=== PATIENT | female | born 1950 | race Two or more races ===

== ENCOUNTER → 2018-05-07 | Outpatient (CLI) | payer SELFPAY ==
[2018-05-07 09:12] LABS: ABSOLUTE BASOPHILS # (AUTO) 0.1 10^3/uL (0.0-0.2); ABSOLUTE EOSINOPHILS # (AUTO) 0.2 10^3/uL (0.0-0.6); ABSOLUTE LYMPHOCYTES (AUTO) 2.4 10^3/uL (0.5-4.7); ABSOLUTE MONOCYTES (AUTO) 0.6 10^3/uL (0.1-1.4); ABSOLUTE NEUT (AUTO) 4.6 10^3/uL (1.7-8.2); EOSINOPHILS % (AUTO) 2.2 % (0-6); HEMATOCRIT 35.2 % (36.0-47.0); HEMOGLOBIN 11.8 g/dL (12.0-15.5); LYMPHOCYTES % (AUTO) 31.1 % (13-45); MEAN CORPUSCULAR HGB CONC 33.4 g/dL (32.0-36.0); MEAN CORPUSCULAR VOLUME 84 fl (80-97); MONOCYTES % (AUTO) 7.2 % (3-13); PLATELET COUNT 274 10^3/uL (150-450); RED CELL DISTRIBUTION WIDTH 13.7 % (11.5-14.0); SEGMENTED NEUTROPHILS % (AUTO) 58.5 % (42-78); TOTAL CELLS COUNTED % (AUTO) 100 %; WHITE BLOOD COUNT 7.8 10^3/uL (4.0-10.5)
[2018-05-07 09:38] LABS: ALANINE AMINOTRANSFERASE 15 U/L (9-52); ALBUMIN 3.9 g/dL (3.5-5.0); ALKALINE PHOSPHATASE 159 U/L (38-126); ANION GAP 15 (5-19); ASPARTATE AMINO TRANSFERASE 13 U/L (14-36); BILIRUBIN,DIRECT 0.3 mg/dL (0.0-0.4); BILIRUBIN,TOTAL 0.4 mg/dL (0.2-1.3); BLOOD UREA NITROGEN 38 mg/dL (7-20); CALCIUM 9.9 mg/dL (8.4-10.2); CARBON DIOXIDE 28 mmol/L (22-30); CHLORIDE 95 mmol/L (98-107); CHOLESTEROL 183.66 mg/dL (0-200); POTASSIUM 5.3 mmol/L (3.6-5.0); TOTAL PROTEIN 7.3 g/dL (6.3-8.2); TRIGLYCERIDES 185 mg/dL (<150)
[2018-05-07 09:48] LABS: DIRECT LDL 108 mg/dL (<100)
[2018-05-07 10:26] LABS: GLUCOSE 428 mg/dL (75-110)
== END ==
LOC: OD 07:54
PROVIDERS: ATTEND Family Medicine
DX: D51.8 Other vitamin B12 deficiency anemias (principal); I10 Essential (primary) hypertension; E11.9 Type 2 diabetes mellitus without complications; E78.5 Hyperlipidemia, unspecified
CPT/HCPCS: 36415; 80053; 80061; 82607; 83036; 85025

== ENCOUNTER 2018-09-11 10:01 | Emergency (ER) | payer SELFPAY ==
[2018-09-11] MEDS ORDERED: ACETAMINOPHEN 325 MG TABLET PO ONE (10:38)
--- NOTE | 2018-09-11 10:38 | ER Document Report ---
ED General - General Chief Complaint: Other Stated Complaint: WEAKNESS Time Seen by Provider: 09/11/18 10:20 Mode of Arrival: Medic Information source: Relative, Emergency Med Personnel, [facility] Records Notes: 67-year-old female with hypertension, diabetes presents via EMS from home after she was unable to climb down 2 flights of stairs this morning. Daughter is at the bedside and acts as co founder and president who states that the patient had a recent fall 1 week ago where a plastic chair broke causing her to land on her right side. Since then she has been experiencing some right-sided knee pain, back pain. Daughter states that they received a call from the patient's primary care physician Dr. Espinoza who informed them that the patient had a elevated potassium and they were on their way to the lab for repeat testing. When the daughter was unable to get the patient down the stairs she called EMS who did bring the patient to the daughter's car and then she was unable to lift her leg up into the van. At that time they brought her to the emergency department. Patient denies headache, dizziness, blurred vision, nausea, vomiting, chest pain , abdominal pain. TRAVEL OUTSIDE OF THE [place] IN LAST 30 DAYS: No COUNTRY TRAVELED TO/FROM: [place] [facility] Onset: Just prior to arrival Onset/Duration: Gradual Quality of pain: Throbbing Severity: Moderate Associated symptoms: Body/muscle aches. denies: Chest pain, Fever, Headache, Nausea, Vomiting, Shortness of breath Exacerbated by: Walking Relieved by: Remaining still Similar symptoms previously: Yes Recently seen / treated by doctor: Yes - Related Data Allergies/Adverse Reactions: No Known Allergies Allergy (Verified 05/14/16 04:21) Past Medical History - General Information source: Patient, Relative, [facility] Records - Social History Smoking Status: Never Smoker Chew tobacco use (# tins/day): No Frequency of alcohol use: None Drug Abuse: None Lives with: Family Family History: Reviewed & Not Pertinent Patient has suicidal ideation: No Patient has homicidal ideation: No - Past Medical History Cardiac Medical History: Reports: Hx Hypertension Endocrine Medical History: Reports: Hx Diabetes Mellitus Type 2 Renal/ Medical History: Denies: Hx Peritoneal Dialysis Psychiatric Medical History: Denies: Hx Depression - Immunizations Hx Pneumococcal Vaccination: 10/22/15 Review of Systems - Review of Systems Notes: REVIEW OF SYSTEMS: CONSTITUTIONAL : Denies fever, chills, or sweats. Denies recent illness. Denies weight loss, recent hospitalizations. EENT: Denies visual changes, eye pain. Denies sore throat, oral lesions, difficulty swallowing. CARDIOVASCULAR: Denies chest pain. Denies palpitations. Denies lower extremity edema. RESPIRATORY: Denies cough. Denies shortness of breath, wheezing. GASTROINTESTINAL: Denies abdominal pain or distention. Denies nausea, vomiting , or diarrhea. Denies blood in vomitus, stools, or per rectum. Denies black, tarry stools. Denies constipation. GENITOURINARY: Denies difficulty urinating, painful urination, frequency, blood in urine, or vaginal discharge. MUSCULOSKELETAL: Denies neck pain or stiffness. Denies joint swelling. SKIN: Denies rash, lesions or sores. HEMATOLOGIC : Denies easy bruising or bleeding. LYMPHATIC: Denies swollen glands. NEUROLOGICAL: Denies confusion or altered mental status. Denies loss of consciousness. Denies dizziness or lightheadedness. Denies headache. Denies weakness or paralysis. Denies slurred speech. Denies sensory loss, numbness, or tingling. Denies seizures. PSYCHIATRIC: Denies anxiety or stress. Denies depression, suicidal ideation, or homicidal ideation. Denies visual or auditory hallucinations. Physical Exam - Vital signs Vitals: Temp Pulse Resp BP Pulse Ox 98.0 F 78 16 164/66 H 98 09/11/18 10:18 09/11/18 10:18 09/11/18 10:18 09/11/18 10:18 09/11/18 10:18 Interpretation: Hypertensive - Patient has not not yet taken her hypertensive medication. - Notes Notes: PHYSICAL EXAMINATION: GENERAL: Well-appearing, well-nourished and in no acute distress. GCS 15 HEAD: Atraumatic, normocephalic. EYES: Pupils equal round and reactive to light, extraocular movements intact, sclera anicteric, conjunctiva are normal. ENT: Nares patent, oropharynx clear without exudates. Moist mucous membranes. No hemanotympanum . No blood in nares. No dental fracture NECK: Normal range of motion, supple without lymphadenopathy. Trachea midline LUNGS: Breath sounds clear to auscultation bilaterally and equal. No wheezes rales or rhonchi. HEART: Regular rate and rhythm 2/4 systolic murmur. Pulses intact all throughout. ABDOMEN: Soft, nontender, nondistended abdomen. No guarding, no rebound. No masses appreciated. Musculoskeletal: Normal range of motion, no pitting or edema. No cyanosis. Hip non tender, stable. Midline tenderness of the thoracic and lumbar spine. Pain with range of motion of the right hip and knee without obvious deformity. DP, PT pulse intact. NEUROLOGICAL: Cranial nerves grossly intact. Normal speech, normal gait. Normal sensory, motor, and reflex exams. PSYCH: Normal mood, normal affect. SKIN: Warm, No active bleeding Course - Re-evaluation Re-evalutation: Laboratory 09/11/18 09/11/18 09/11/18 10:45 10:45 11:20 WBC 7.7 RBC 3.89 Hgb 10.8 L Hct 32.4 L MCV 83 MCH 27.8 MCHC 33.4 RDW 14.9 H Plt Count 254 Seg Neutrophils % 67.6 Lymphocytes % 23.1 Monocytes % 6.0 Eosinophils % 2.2 Basophils % 1.1 Absolute Neutrophils 5.2 Absolute Lymphocytes 1.8 Absolute Monocytes 0.5 Absolute Eosinophils 0.2 Absolute Basophils 0.1 Sodium 144.2 Potassium 5.2 H Chloride 106 Carbon Dioxide 24 Anion Gap 14 BUN 25 H Creatinine 1.09 Est GFR ( Amer) > 60 Est GFR (Non-Af Amer) 50 L Glucose 176 H POC Glucose 185 H Calcium 9.8 Total Bilirubin 0.4 Direct Bilirubin 0.3 Neonat Total Bilirubin Not Reportable Neonat Direct Bilirubin Not Reportable Neonat Indirect Bili Not Reportable AST 14 ALT 17 Alkaline Phosphatase 97 Total Protein 7.6 Albumin 4.3 Urine Color Urine Appearance Urine pH Ur Specific [place] Urine Protein Urine Glucose (UA) Urine Ketones Urine Blood Urine Nitrite Urine Bilirubin Urine Urobilinogen Ur Leukocyte Esterase Urine WBC (Auto) Urine RBC (Auto) Urine Bacteria (Auto) Squamous Epi Cells Auto Urine Mucus (Auto) Urine Ascorbic Acid 09/11/18 12:00 WBC RBC Hgb Hct MCV MCH MCHC RDW Plt Count Seg Neutrophils % Lymphocytes % Monocytes % Eosinophils % Basophils % Absolute Neutrophils Absolute Lymphocytes Absolute Monocytes Absolute Eosinophils Absolute Basophils Sodium Potassium Chloride Carbon Dioxide Anion Gap BUN Creatinine Est GFR ( Amer) Est GFR (Non-Af Amer) Glucose POC Glucose Calcium Total Bilirubin Direct Bilirubin Neonat Total Bilirubin Neonat Direct Bilirubin Neonat Indirect Bili AST ALT Alkaline Phosphatase Total Protein Albumin Urine Color YELLOW Urine Appearance SLIGHTLY-CLOUDY Urine pH 6.0 Ur Specific [place] 1.012 Urine Protein NEGATIVE Urine Glucose (UA) 50 H Urine Ketones TRACE H Urine Blood NEGATIVE Urine Nitrite NEGATIVE Urine Bilirubin NEGATIVE Urine Urobilinogen NEGATIVE Ur Leukocyte Esterase TRACE H Urine WBC (Auto) 5 Urine RBC (Auto) 1 Urine Bacteria (Auto) 1+ Squamous Epi Cells Auto <1 Urine Mucus (Auto) RARE Urine Ascorbic Acid NEGATIVE Lumbar Spine CT 09/11/18 10:31 IMPRESSION: No significant posttraumatic changes are identified. Degenerative changes as noted above Pelvis CT 09/11/18 10:31 IMPRESSION: NO ACUTE OR SIGNIFICANT FINDINGS. Thoracic Spine CT 09/11/18 10:31 IMPRESSION: No significant posttraumatic changes are identified. Degenerative changes are identified with osteophytic lipping at multiple levels. Other findings as noted above Knee X-Ray 09/11/18 10:32 IMPRESSION: Small suprapatellar knee joint effusion. No acute fracture or malalignment 09/11/18 10:41 67-year-old female presents via EMS after being unable to get down her stairs and into her daughter's car for repeat blood work. Daughter states that she was called by the patient's primary care physician and told that her potassium was high and they were on their way to repeat lab work when the patient was unable to walk down the stairs. EMS arrived and helped the patient to the daughter's car but then she was unable to lift her leg to get up into the van. Patient has had recent falls with the last one 1 week ago where she fell onto her right side out of a chair that broke from underneath her. Upon arrival vitals were reviewed patient is mildly hypertensive secondary to not taking her medication yet this morning most likely, afebrile. Patient does not appear toxic or dehydrated. She is in no acute distress. Previous nursing notes and medical records reviewed. Patient moves all 4 extremities without difficulty although there is pain with ranging the right knee. There is no obvious deformity. Patient also has midline tenderness of the thoracic and lumbar spine. CT of the lumbar spine, pelvis and thoracic spine were obtained and showed degenerative changes but no acute injury. X-ray of the knee says a small right right joint effusion. Patient does have a walker at home. We ambulated the patient and she did well prior to discharge. I did discuss lab findings of a potassium of 5.2 with the daughter. ECG showed no peaked T waves , MD depression or QRS prolongation. No evidence for treatment at this time. Falls have been mechanical and not preceded by chest pain or shortness of breath. I have advised her to stay away from foods containing high levels of potassium. Patient has no EKG changes concerning for hyperkalemia. Patient will be provided an Ronaldo wrap. Patient was evaluated and treated as appropriate for the patient's presenting symptoms and complaint, with consideration of any critical or life threatening conditions that may be associated with their obtained history and exam as noted above. All results were discussed with patient her daughter. Patient and her daughter provided the opportunity to ask questions, and express concerns. Patient was educated on treatments based on their presumed diagnosis as noted above. At this time we will discharge the patient with return precautions and follow-up recommendations. Verbal discharge instructions given a the bedside. Medication warnings reviewed. Patient and her daughter are in agreement with this plan and has verbalized understanding of return precautions. After careful consideration I feel that that patient can be safely discharged from the emergency department, they were advised to followup with a primary care physician in 2-3 days. Dictation on this chart was performed using voice recognition software and may result in unintended grammatical, spelling, syntax or errors. 09/11/18 12:34 09/11/18 20:42 09/11/18 20:45 - Vital Signs Vital signs: Temp Pulse Resp BP Pulse Ox 98.2 F 78 16 136/66 H 99 09/11/18 13:35 09/11/18 10:18 09/11/18 10:18 09/11/18 13:12 09/11/18 13:12 - Laboratory Result Diagrams: 09/11/18 10:45 09/11/18 10:45 Laboratory results interpreted by me: 09/11/18 09/11/18 09/11/18 10:45 10:45 11:20 Hgb 10.8 L Hct 32.4 L RDW 14.9 H Potassium 5.2 H BUN 25 H Est GFR (Non-Af Amer) 50 L Glucose 176 H POC Glucose 185 H Urine Glucose (UA) Urine Ketones Ur Leukocyte Esterase 09/11/18 12:00 Hgb Hct RDW Potassium BUN Est GFR (Non-Af Amer) Glucose POC Glucose Urine Glucose (UA) 50 H Urine Ketones TRACE H Ur Leukocyte Esterase TRACE H - Diagnostic Test Radiology reviewed: Image reviewed, Reports reviewed - EKG Interpretation by Me EKG shows normal: Sinus rhythm Rate: Normal Rhythm: PVC's Voltage: Consistant with LVH When compared to previous EKG there are: Changes noted Discharge - Discharge Clinical Impression: Effusion, right knee, Hyperkalemia Hypertension Qualifiers: Hypertension type: unspecified Qualified Code(s): I10 - Essential (primary) hypertension Fall Qualifiers: Encounter type: initial encounter Qualified Code(s): W19.XXXA - Unspecified fall, initial encounter Contusion, hip Qualifiers: Encounter type: initial encounter Laterality: right Qualified Code(s): S70.01XA - Contusion of right hip, initial encounter Low back pain Qualifiers: Chronicity: acute Back pain laterality: midline Sciatica presence: without sciatica Qualified Code(s): M54.5 - Low back pain Anemia Qualifiers: Anemia type: unspecified type Qualified Code(s): D64.9 - Anemia, unspecified Condition: Good Disposition: HOME, SELF-CARE Instructions: Contusion ([facility]), Knee Effusion ([facility]), Low Back Pain ([facility]) Additional Instructions: You have been seen in the Emergency Department (ED) today following a fall. Your workup today did not reveal any injuries that require you to stay in the hospital. You can expect, though, to be stiff and sore for the next several days. You can take Tylenol 1000 mg every 6 hours as needed for pain. You can apply a hot pack or electric heating pad to the sore areas. You can also use topical "Aspercreme with lidocaine" to sore areas as needed. Please follow up with your primary care doctor as soon as possible regarding today's ED visit and your recent fall. Call your doctor or return to the ED if you develop a sudden or severe headache , confusion, slurred speech, facial droop, weakness or numbness in any arm or leg, extreme fatigue, vomiting more than two times, severe abdominal pain, or other symptoms that concern yo Forms: Elevated Blood Pressure Referrals: MILLICENT ESPINOZA MD [Primary Care Provider] - Follow up as needed
[2018-09-11 11:01] LABS: ABSOLUTE BASOPHILS # (AUTO) 0.1 10^3/uL (0.0-0.2); ABSOLUTE EOSINOPHILS # (AUTO) 0.2 10^3/uL (0.0-0.6); ABSOLUTE LYMPHOCYTES (AUTO) 1.8 10^3/uL (0.5-4.7); ABSOLUTE MONOCYTES (AUTO) 0.5 10^3/uL (0.1-1.4); ABSOLUTE NEUT (AUTO) 5.2 10^3/uL (1.7-8.2); BASOPHILS % (AUTO) 1.1 % (0-2); EOSINOPHILS % (AUTO) 2.2 % (0-6); HEMATOCRIT 32.4 % (36.0-47.0); HEMOGLOBIN 10.8 g/dL (12.0-15.5); LYMPHOCYTES % (AUTO) 23.1 % (13-45); MEAN CORPUSCULAR HEMOGLOBIN 27.8 pg (27.0-33.4); MEAN CORPUSCULAR HGB CONC 33.4 g/dL (32.0-36.0); MEAN CORPUSCULAR VOLUME 83 fl (80-97); PLATELET COUNT 254 10^3/uL (150-450); RED BLOOD COUNT 3.89 10^6/uL (3.72-5.28); RED CELL DISTRIBUTION WIDTH 14.9 % (11.5-14.0); SEGMENTED NEUTROPHILS % (AUTO) 67.6 % (42-78); TOTAL CELLS COUNTED % (AUTO) 100 %; WHITE BLOOD COUNT 7.7 10^3/uL (4.0-10.5)
[2018-09-11 11:19] LABS: ALANINE AMINOTRANSFERASE 17 U/L (9-52); ALBUMIN 4.3 g/dL (3.5-5.0); ALKALINE PHOSPHATASE 97 U/L (38-126); ANION GAP 14 (5-19); ASPARTATE AMINO TRANSFERASE 14 U/L (14-36); BILIRUBIN,DIRECT 0.3 mg/dL (0.0-0.4); BILIRUBIN,TOTAL 0.4 mg/dL (0.2-1.3); BLOOD UREA NITROGEN 25 mg/dL (7-20); CALCIUM 9.8 mg/dL (8.4-10.2); CARBON DIOXIDE 24 mmol/L (22-30); CHLORIDE 106 mmol/L (98-107); GLUCOSE 176 mg/dL (75-110); POTASSIUM 5.2 mmol/L (3.6-5.0); SODIUM 144.2 mmol/L (137-145); TOTAL PROTEIN 7.6 g/dL (6.3-8.2)
--- NOTE | 2018-09-11 11:30 | RADIOLOGY REPORT (SQ) ---
EXAM DESCRIPTION: CT THORACIC SPINE WITHOUT COMPLETED DATE/TIME: 09/11/2018 11:08 am REASON FOR STUDY: fall COMPARISON: None. TECHNIQUE: Axial images acquired through the thoracic spine without intravenous contrast. Images re viewed with lung, soft tissue and bone windows. Reconstructed coronal and sagittal MPR images review ed. Images stored on PACS. All CT scanners at this facility use dose modulation, iterative reconstruction, and/or weight based d osing when appropriate to reduce radiation dose to as low as reasonably achievable (ALARA). [facility]: Dose Right [facility]: CareDose [facility]: Dose Right [facility]: Teradose 4D [facility]: Smart Pure Focus RADIATION DOSE: CT Rad equipment meets quality standard of care and radiation dose reduction techniq ues were employed. CTDIvol: 36.9 mGy. DLP: 1284 mGy-cm. mGy. LIMITATIONS: None. FINDINGS: VISUALIZED LUNGS: No acute opacities. No pneumothorax. SOFT TISSUES: No soft tissue swelling. No masses. VERTEBRAL BODIES: No fractures. No dislocation. No acute findings. DISCS: No significant disc space narrowing. Osteophytic lipping is identified at multiple levels. ALIGNMENT: Normal. TRANSVERSE PROCESSES, POSTERIOR ELEMENTS: No fractures. No dislocation. No acute findings. HARDWARE: None in the spine. VISUALIZED RIBS: No fractures. OTHER: No other significant finding. IMPRESSION: No significant posttraumatic changes are identified. Degenerative changes are identifie d with osteophytic lipping at multiple levels. Other findings as noted above TECHNICAL DOCUMENTATION: JOB ID: [id number] Quality ID # [id number]: Final reports with documentation of one or more dose reduction techniques (e.g., Au tomated exposure control, adjustment of the mA and/or kV according to patient size, use of iterative reconstruction technique) 2010 [employer]- All Rights Reserved Reading location - IP/workstation name: [email or web address]
--- NOTE | 2018-09-11 11:36 | RADIOLOGY REPORT (SQ) ---
EXAM DESCRIPTION: CT LUMBAR SPINE WITHOUT COMPLETED DATE/TIME: 09/11/2018 11:08 am REASON FOR STUDY: fall COMPARISON: None. TECHNIQUE: Axial images acquired through the lumbar spine without intravenous contrast. Images revi ewed with lung, soft tissue and bone windows. Reconstructed coronal and sagittal MPR images reviewed . All images stored on PACS. All CT scanners at this facility use dose modulation, iterative reconstruction, and/or weight based d osing when appropriate to reduce radiation dose to as low as reasonably achievable (ALARA). [facility]: Dose Right [facility]: CareDose [facility]: Dose Right [facility]: Teradose 4D [facility]: [employer] RADIATION DOSE: mGy. LIMITATIONS: None. FINDINGS: SEGMENTATION: Normal. No transitional anatomy. ALIGNMENT: Normal. VERTEBRAL BODIES: No fractures. No dislocation. No acute findings. DISCS: No significant disc space reduction is seen. Osteophytic lipping is identified at multiple le vels. PEDICLES, TRANSVERSE PROCESSES: No fractures. No dislocation. No acute findings. FACETS, POSTERIOR ELEMENTS: No fractures. No dislocation. No spinal stenosis. HARDWARE: None in the spine. VISUALIZED RIBS: No fractures. SOFT TISSUES: No significant or acute finding in adjacent soft tissues. OTHER: No other significant finding. IMPRESSION: No significant posttraumatic changes are identified. Degenerative changes as noted abov e TECHNICAL DOCUMENTATION: JOB ID: [id number] Quality ID # [id number]: Final reports with documentation of one or more dose reduction techniques (e.g., Au tomated exposure control, adjustment of the mA and/or kV according to patient size, use of iterative reconstruction technique) 2010 [employer]- All Rights Reserved Reading location - IP/workstation name: [email or web address]
--- NOTE | 2018-09-11 11:37 | RADIOLOGY REPORT (SQ) ---
EXAM DESCRIPTION: KNEE RIGHT 2 VIEWS COMPLETED DATE/TIME: 09/11/2018 11:16 am REASON FOR STUDY: fall injury 2 or 3 days ago with right knee pain. Language barrier, unable to obt ain further history COMPARISON: None. NUMBER OF VIEWS: Two views. TECHNIQUE: AP and lateral radiographic images acquired of the right knee. LIMITATIONS: None. FINDINGS: MINERALIZATION: Normal. BONES: No acute fracture or dislocation. No worrisome bone lesions. JOINT: Small suprapatellar knee joint effusion. Normal alignment at the patellofemoral, medial, and lateral compartment SOFT TISSUES: No soft tissue swelling. No radio-opaque foreign body. OTHER: No other significant finding. IMPRESSION: Small suprapatellar knee joint effusion. No acute fracture or malalignment TECHNICAL DOCUMENTATION: JOB ID: [id number] [employer]- All Rights Reserved Reading location - IP/workstation name: [email or web address]
--- NOTE | 2018-09-11 11:40 | RADIOLOGY REPORT (SQ) ---
EXAM DESCRIPTION: CT PELVIS WITHOUT COMPLETED DATE/TIME: 09/11/2018 11:08 am REASON FOR STUDY: fall COMPARISON: None. TECHNIQUE: CT scan of the pelvis performed without intravenous or oral contrast. Images reviewed wi th soft tissue and bone windows. Reconstructed coronal and sagittal MPR images reviewed. All images stored on PACS. All CT scanners at this facility use dose modulation, iterative reconstruction, and/or weight based d osing when appropriate to reduce radiation dose to as low as reasonably achievable (ALARA). [facility]: Dose Right [facility]: CareDose [facility]: Dose Right [facility]: Teradose 4D [facility]: [employer] RADIATION DOSE: CT Rad equipment meets quality standard of care and radiation dose reduction techniq ues were employed. CTDIvol: 34.4 mGy. DLP: 992 mGy-cm. mGy. LIMITATIONS: None. FINDINGS: PELVIC BONES: No acute fracture. No worrisome bone lesions. VISUALIZED SPINE: No acute findings. HIP(S): No acute fracture or dislocation. No worrisome bone lesions. PELVIC SOFT TISSUES: No significant findings. EXTRAPELVIC SOFT TISSUES: No significant findings. OTHER: No other significant finding. IMPRESSION: NO ACUTE OR SIGNIFICANT FINDINGS. TECHNICAL DOCUMENTATION: JOB ID: [id number] Quality ID # [id number]: Final reports with documentation of one or more dose reduction techniques (e.g., Au tomated exposure control, adjustment of the mA and/or kV according to patient size, use of iterative reconstruction technique) 2010 [employer]- All Rights Reserved Reading location - IP/workstation name: [email or web address]
[2018-09-11 12:26] LABS: APPEARANCE,URINE SLIGHTLY-CLOUDY; BILIRUBIN,URINE NEGATIVE (NEGATIVE); COLOR,URINE YELLOW; GLUCOSE, URINE 50 mg/dL (NEGATIVE); KETONES,URINE TRACE mg/dL (NEGATIVE); LEUKOCYTE ESTERASE,URINE TRACE (NEGATIVE); NITRITE,URINE NEGATIVE (NEGATIVE); PROTEIN,URINE NEGATIVE (NEGATIVE); URINE SPECIFIC GRAVITY 1.012; UROBILINOGEN,URINE NEGATIVE mg/dL (<2.0)
[2018-09-11 13:35] VITALS: BP 136/66
--- NOTE | 2018-09-11 15:48 | EKG REPORT ---
SEVERITY:- ABNORMAL ECG - SINUS RHYTHM MULTIFORM VENTRICULAR PREMATURE COMPLEXES LEFT VENTRICULAR HYPERTROPHY : Confirmed by: Loraine Hassan MD 11-Sep-2018 15:47:33
== END 2018-09-11 13:39 | disposition home or self-care (01) ==
LOC: ER 10:01
DX: E87.5 Hyperkalemia (principal); S70.01XA Contusion of right hip, initial encounter; M25.561 Pain in right knee; M25.461 Effusion, right knee; W07.XXXA Fall from chair, initial encounter; D64.9 Anemia, unspecified; M47.9 Spondylosis, unspecified; M54.5 Low back pain; I49.3 Ventricular premature depolarization; E11.9 Type 2 diabetes mellitus without complications; I10 Essential (primary) hypertension; Z79.899 Other long term (current) drug therapy
CPT/HCPCS: 36415; 72128; 72131; 72192; 80053; 81001; 82962; 85025; 93005; 93010; 99285

== ENCOUNTER 2018-11-29 00:50 | Emergency (ER) | payer SELFPAY ==
--- NOTE | 2018-11-29 01:09 | ER Document Report ---
ED General - General Chief Complaint: Low Blood Sugar Stated Complaint: BLOOD SUGAR ISSUE Time Seen by Provider: 11/29/18 01:01 Primary Care Provider: MILLICENT ESPINOZA MD [Primary Care Provider] - 12/02/18 Notes: Patient is a pleasant 67-year-old female presents with complaint of difficulty breathing and not feeling well. She also was crying per the daughter. She called the ambulance. EMS arrived the checked her blood sugar was 53. They did give her some dextrose. They also give her to be on Atrovent treatment. Blood pressure was low at the time. Her blood pressure at that time was low. After receiving the dextrose and fluids her blood pressure is now 120/80. Daughter says that she is had some nasal congestion and coughing. Other family members have had similar symptoms. Patient herself does continue worsen tonight. She has not been eating much last 2 days. I did review her medications and she is on glimepiride for blood sugar. TRAVEL OUTSIDE OF THE [place] IN LAST 30 DAYS: No COUNTRY TRAVELED TO/FROM: [place] - Related Data Allergies/Adverse Reactions: No Known Allergies Allergy (Verified 05/14/16 04:21) Past Medical History - Social History Smoking Status: Never Smoker Frequency of alcohol use: None Drug Abuse: None Family History: Reviewed & Not Pertinent - Past Medical History Cardiac Medical History: Reports: Hx Hypertension Endocrine Medical History: Reports: Hx Diabetes Mellitus Type 2 Renal/ Medical History: Denies: Hx Peritoneal Dialysis Psychiatric Medical History: Denies: Hx Depression - Immunizations Hx Pneumococcal Vaccination: 10/22/15 Review of Systems - Review of Systems Notes: My Normal Review Basic REVIEW OF SYSTEMS: CONSTITUTIONAL : Denies fever, chills, or sweats. Denies recent illness. EENT: Denies eye, ear, throat, or mouth pain or symptoms. Denies nasal or sinus congestion. CARDIOVASCULAR: Denies chest pain. RESPIRATORY: Difficulty breathing GASTROINTESTINAL: Denies abdominal pain. Denies nausea, vomiting, or diarrhea. MUSCULOSKELETAL: Denies neck or back pain or joint pain or swelling. SKIN: Denies rash or skin lesions. NEUROLOGICAL: Denies altered mental status or loss of consciousness. Denies headache. Denies weakness or paralysis or loss of use of either side. Denies problems with gait or speech. Denies sensory or motor loss. ALL OTHER SYSTEMS REVIEWED AND NEGATIVE. Physical Exam - Vital signs Vitals: Resp Pulse Ox 17 100 11/29/18 01:00 11/29/18 01:00 - Notes Notes: General Appearance: Well nourished, alert, cooperative, mild acute distress, no obvious discomfort. Vitals: reviewed, See vital signs table. Head: no swelling or tenderness to the head Eyes: PERRL, EOMI, Conjuctiva clear Mouth: No decreasd moisture Throat: No tonsillar inflammation, No airway obstruction, No lymphadenopathy Neck: Supple, no neck tenderness, No thyromegaly Lungs: No wheezing, basilar rales, No rhonci, No accessory muscle use, good air exchange bilaterally. Heart: Normal rate, Regular rythm, No murmur, no rub Abdomen: Normal BS, soft, No rigidity, No abdominal tenderness, No guarding, no rebound, Extremities: strength 5/5 in all extremities, good pulses in all extremities, no swelling or tenderness in the extremities, 1+ bilateral lower extremity edema. Skin: warm, dry, appropriate color, no rash Neuro: speech clear, normal affect, responds appropriately to questions. Course - Re-evaluation Re-evalutation: 11/29/18 06:45 Since patient's blood sugar was corrected she is done well. She looks well on exam. Her blood pressure has remained normal. Watch for several hours. She is had no recurrence of symptoms. The only symptoms that she complains of is that she has cramping in her hands. This is been ongoing problem. Her daughter requested referral to physical therapy. I encouraged her to follow-up with Dr. Espinoza in regards to that he can write for physical therapy referral on monitor along with physical therapy regards to her hands. She also has some increased edema in her legs and her daughter feels that her face is more puffy than usual and she feels that she is been a little bit more swollen all over. She does have some edema on exam. I will placed on a low-dose Lasix. She is on glimepiride as well as Actos. At this time I will have her hold his medications as they have a history of causing recurrent hypoglycemia. I informed him to call and follow-up with Dr. Espinoza on Sunday to reevaluate how she is doing to determine whether or not to restart these medications. We will have her continue her metformin. Encouraged him to continue to feed her normal food. Denies any evidence of infection on exam or workup. Chest x-ray is negative. She we did do a CT scan of the head because the daughter initially said that she was having pain going into her right side and she felt she had some weakness in the right side however when I reevaluate this and talked her length about this it is actually more that she has the cramping into her hands and legs and this cramping is bilateral and she does not have a true weakness on exam. Suspect s ciro. I encouraged them to return to ER if she has fevers, vomiting, difficulty breathing, chest pain, recurrent weakness, or if she appears unwell. Patient and daughter agree with plan patient will be discharged home. History and physical was provided mainly by the daughter due to language barrier. She was able to translate for me in regards to asking the patient questions. Dictation of this chart was performed using voice recognition software; therefore, there may be some unintended grammatical errors. 11/29/18 06:48 - Vital Signs Vital signs: Temp Pulse Resp BP Pulse Ox 98.3 F 17 127/66 H 100 11/29/18 05:01 11/29/18 06:01 11/29/18 06:01 11/29/18 06:01 - Laboratory Result Diagrams: 11/29/18 01:06 11/29/18 01:06 Laboratory results interpreted by me: 11/29/18 11/29/18 11/29/18 01:03 01:06 01:06 WBC 11.3 H RBC 3.67 L Hgb 10.1 L Hct 30.6 L RDW 14.4 H Absolute Neutrophils 8.6 H Sodium 132.8 L Potassium 5.1 H Carbon Dioxide 21 L BUN 38 H Creatinine 1.37 H Est GFR ( Amer) 47 L Est GFR (Non-Af Amer) 39 L Glucose 139 H POC Glucose 163 H 11/29/18 05:15 WBC RBC Hgb Hct RDW Absolute Neutrophils Sodium Potassium Carbon Dioxide BUN Creatinine Est GFR ( Amer) Est GFR (Non-Af Amer) Glucose POC Glucose 211 H - EKG Interpretation by Me Additional EKG results interpreted by me: 11/29/18 02:51 EKG is reviewed and interpreted by me. EKG shows sinus rhythm with a rate of [address] segment elevation or depression. No ischemic T wave inversions. NE interval, QRS duration, QT intervals are within normal range. No old EKG available for comparison. Discharge - Discharge Clinical Impression: Hypoglycemia, Peripheral edema Condition: Good Disposition: HOME, SELF-CARE Additional Instructions: Please do not take Actos or Glimepiride until reevaluated by Dr. Espinoza on Sunday. please start taking the Lasix. This is a pill that helps remove extra swelling in the extremities. Please take the rest of your medications as prescribed.Please return to the ER if you have fevers, chest pain, difficulty breathing, or feel unwell. Prescriptions: Furosemide [Lasix] 10 mg PO DAILY #15 tablet Referrals: MILLICENT ESPINOZA MD [Primary Care Provider] - 12/02/18
[2018-11-29 01:21] LABS: ABSOLUTE LYMPHOCYTES (AUTO) 1.9 10^3/uL (0.5-4.7); ABSOLUTE MONOCYTES (AUTO) 0.8 10^3/uL (0.1-1.4); ABSOLUTE NEUT (AUTO) 8.6 10^3/uL (1.7-8.2); BASOPHILS % (AUTO) 0.2 % (0-2); EOSINOPHILS % (AUTO) 0.4 % (0-6); HEMATOCRIT 30.6 % (36.0-47.0); HEMOGLOBIN 10.1 g/dL (12.0-15.5); LYMPHOCYTES % (AUTO) 16.5 % (13-45); MEAN CORPUSCULAR HEMOGLOBIN 27.6 pg (27.0-33.4); MEAN CORPUSCULAR VOLUME 84 fl (80-97); MONOCYTES % (AUTO) 6.8 % (3-13); PLATELET COUNT 294 10^3/uL (150-450); RED BLOOD COUNT 3.67 10^6/uL (3.72-5.28); RED CELL DISTRIBUTION WIDTH 14.4 % (11.5-14.0); SEGMENTED NEUTROPHILS % (AUTO) 76.1 % (42-78); TOTAL CELLS COUNTED % (AUTO) 100 %; WHITE BLOOD COUNT 11.3 10^3/uL (4.0-10.5)
[2018-11-29 01:26] LABS: ALANINE AMINOTRANSFERASE 22 U/L (9-52); ALBUMIN 3.8 g/dL (3.5-5.0); ALKALINE PHOSPHATASE 78 U/L (38-126); ANION GAP 12 (5-19); ASPARTATE AMINO TRANSFERASE 35 U/L (14-36); BLOOD UREA NITROGEN 38 mg/dL (7-20); CALCIUM 8.6 mg/dL (8.4-10.2); CARBON DIOXIDE 21 mmol/L (22-30); CHLORIDE 100 mmol/L (98-107); GLUCOSE 139 mg/dL (75-110); POTASSIUM 5.1 mmol/L (3.6-5.0); SODIUM 132.8 mmol/L (137-145)
[2018-11-29 01:27] LABS: BILIRUBIN,DIRECT 0.3 mg/dL (0.0-0.4); BILIRUBIN,TOTAL 0.3 mg/dL (0.2-1.3); TOTAL PROTEIN 6.8 g/dL (6.3-8.2)
--- NOTE | 2018-11-29 01:42 | RADIOLOGY REPORT (SQ) ---
EXAM DESCRIPTION: XR CHEST 1 VIEW COMPLETED DATE/TME: 11/29/2018 01:05 CLINICAL HISTORY: 67 years, Female, dyspnea COMPARISON: 05/15/2016 chest x-ray NUMBER OF VIEWS: 1 TECHNIQUE: Portable chest LIMITATIONS: None. FINDINGS: Heart size is normal. Osteopenia. Lungs are clear. IMPRESSION: No acute cardiopulmonary process copyright 2010 [employer]- All Rights Reserved
[2018-11-29 02:10] LABS: A TYPE INFLUENZA AG NEGATIVE (NEGATIVE); B INFLUENZA AG NEGATIVE (NEGATIVE)
--- NOTE | 2018-11-29 03:44 | RADIOLOGY REPORT (SQ) ---
EXAM DESCRIPTION: CT HEAD WITHOUT IV CONTRAST COMPLETED DATE/TME: 11/29/2018 02:33 CLINICAL HISTORY: 67 years, Female, weakness in hands COMPARISON: None. TECHNIQUE: 189 Images stored on PACS. All CT scanners at this facility use dose modulation, iterative reconstruction, and/or weight based dosing when appropriate to reduce radiation dose to as low as reasonably achievable (ALARA). [facility]: Dose Right [facility]: CareDose [facility]: Dose Right [facility]: Teradose 4D [facility]: [facility] LIMITATIONS: None. FINDINGS: Lobes are intact. Paranasal sinuses and mastoid air cells are unremarkable. No displaced or depressed skull fracture. No intra or extra-axial hemorrhage. CT is limited for evaluation of acute infarct. No CT evidence for large or territorial acute infarct. No mass or midline shift. IMPRESSION: Negative exam TECHNICAL DOCUMENTATION: Quality ID # 436: Final reports with documentation of one or more dose reduction techniques (e.g., Automated exposure control, adjustment of the mA and/or kV according to patient size, use of iterative reconstruction technique) copyright 2010 [employer]- All Rights Reserved
[2018-11-29] MEDS ORDERED: FUROSEMIDE 20 MG TABLET PO ONE (05:25)
[2018-11-29 10:24] VITALS: BP 107/53
--- NOTE | 2018-11-29 13:59 | EKG REPORT ---
SEVERITY:- ABNORMAL ECG - SINUS RHYTHM LEFT AXIS DEVIATION PROBABLE LEFT VENTRICULAR HYPERTROPHY : Confirmed by: Pippa Magana 29-Nov-2018 13:59:05
--- NOTE | 2018-11-29 14:00 | EKG REPORT ---
SEVERITY:- ABNORMAL ECG - SINUS RHYTHM LEFT VENTRICULAR HYPERTROPHY : Confirmed by: Pippa Magana 29-Nov-2018 13:59:25
== END 2018-11-29 14:54 | disposition home or self-care (01) ==
LOC: ER 00:50
DX: E11.649 Type 2 diabetes mellitus with hypoglycemia without coma (principal); Z79.84 Long term (current) use of oral hypoglycemic drugs; R60.0 Localized edema; R06.00 Dyspnea, unspecified; R09.81 Nasal congestion; R05 Cough; I10 Essential (primary) hypertension; R25.2 Cramp and spasm; R51 Headache
CPT/HCPCS: 36415; 70450; 71045; 80053; 82962; 84484; 85025; 87804; 93005; 93010; 99284

== ENCOUNTER 2019-01-09 13:35 | Inpatient (IN) | payer SELFPAY ==
[2019-01-09 14:33] LABS: ABSOLUTE BASOPHILS # (AUTO) 0.1 10^3/uL (0.0-0.2); ABSOLUTE EOSINOPHILS # (AUTO) 0.1 10^3/uL (0.0-0.6); ABSOLUTE LYMPHOCYTES (AUTO) 1.4 10^3/uL (0.5-4.7); ABSOLUTE MONOCYTES (AUTO) 0.3 10^3/uL (0.1-1.4); ABSOLUTE NEUT (AUTO) 6.8 10^3/uL (1.7-8.2); BASOPHILS % (AUTO) 0.8 % (0-2); EOSINOPHILS % (AUTO) 0.6 % (0-6); HEMATOCRIT 35.6 % (36.0-47.0); HEMOGLOBIN 12.3 g/dL (12.0-15.5); LYMPHOCYTES % (AUTO) 16.5 % (13-45); MEAN CORPUSCULAR HEMOGLOBIN 28.5 pg (27.0-33.4); MEAN CORPUSCULAR HGB CONC 34.5 g/dL (32.0-36.0); MEAN CORPUSCULAR VOLUME 83 fl (80-97); MONOCYTES % (AUTO) 3.8 % (3-13); PLATELET COUNT 332 10^3/uL (150-450); RED BLOOD COUNT 4.32 10^6/uL (3.72-5.28); RED CELL DISTRIBUTION WIDTH 15.1 % (11.5-14.0); SEGMENTED NEUTROPHILS % (AUTO) 78.3 % (42-78); TOTAL CELLS COUNTED % (AUTO) 100 %; WHITE BLOOD COUNT 8.7 10^3/uL (4.0-10.5)
[2019-01-09 14:36] LABS: INTERNATIONAL RATION (INR) 0.88; PROTHROMBIN TIME 12.4 SEC (11.4-15.4)
[2019-01-09 14:37] LABS: PARTIAL THROMBOPLASTIN TIME 28.1 SEC (23.5-35.8)
[2019-01-09 14:53] LABS: ALANINE AMINOTRANSFERASE 16 U/L (9-52); ALBUMIN 4.2 g/dL (3.5-5.0); ALKALINE PHOSPHATASE 77 U/L (38-126); ANION GAP 16 (5-19); ASPARTATE AMINO TRANSFERASE 20 U/L (14-36); BILIRUBIN,DIRECT 0.5 mg/dL (0.0-0.4); BILIRUBIN,TOTAL 0.8 mg/dL (0.2-1.3); BLOOD UREA NITROGEN 43 mg/dL (7-20); CALCIUM 10.4 mg/dL (8.4-10.2); CARBON DIOXIDE 20 mmol/L (22-30); CHLORIDE 101 mmol/L (98-107); GLUCOSE 229 mg/dL (75-110); LIPASE 200.5 U/L (23-300); POTASSIUM 5.4 mmol/L (3.6-5.0); SODIUM 136.6 mmol/L (137-145); TOTAL PROTEIN 7.9 g/dL (6.3-8.2)
[2019-01-09] MEDS ORDERED: ONDANSETRON HCL INJ/PF 4 MG/2 ML SDV IV ONE ×2 (15:06→20:55)
[2019-01-09] MEDS ORDERED: NORMAL SALINE 1000 ML 1,000 ML IV ONE ×2 (15:06→20:54)
--- NOTE | 2019-01-09 15:12 | ER Document Report ---
ED GI/ - General Chief Complaint: Nausea/Vomiting Stated Complaint: NAUSEA,VOMITING Time Seen by Provider: 01/09/19 15:00 Primary Care Provider: MILLICENT ESPINOZA MD [Primary Care Provider] - Follow up as needed Mode of Arrival: Stretcher Information source: Patient TRAVEL OUTSIDE OF THE [place] IN LAST 30 DAYS: No COUNTRY TRAVELED TO/FROM: [place] - HPI Patient complains to provider of: Vomiting Onset: Yesterday Timing/Duration: Sudden Quality of pain: No pain Associated symptoms: Nausea, Vomiting Exacerbated by: Denies Relieved by: Denies Similar symptoms previously: Yes Notes: 01/09/19 15:11 Patient is a 68-year-old female brought to the emergency room by EMS for nausea vomiting and diarrhea times 1 day, she denies any abdominal pain or tenderness, no fever or chills - Related Data Allergies/Adverse Reactions: No Known Allergies Allergy (Verified 05/14/16 04:21) Past Medical History - General Information source: Patient - Social History Smoking Status: Unknown if Ever Smoked Family History: Reviewed & Not Pertinent Patient has suicidal ideation: No Patient has homicidal ideation: No - Past Medical History Cardiac Medical History: Reports: Hx Hypertension Endocrine Medical History: Reports: Hx Diabetes Mellitus Type 2 Renal/ Medical History: Denies: Hx Peritoneal Dialysis Psychiatric Medical History: Denies: Hx Depression - Immunizations Hx Pneumococcal Vaccination: 10/22/15 Review of Systems - Review of Systems Constitutional: No symptoms reported EENT: No symptoms reported Cardiovascular: No symptoms reported Respiratory: No symptoms reported Gastrointestinal: See HPI Genitourinary: No symptoms reported Female Genitourinary: No symptoms reported Musculoskeletal: No symptoms reported Skin: No symptoms reported Hematologic/Lymphatic: No symptoms reported Neurological/Psychological: No symptoms reported -: Yes All other systems reviewed and negative Physical Exam - Vital signs Vitals: Resp 19 01/09/19 13:52 Interpretation: Normal - General General appearance: Appears well, Alert - HEENT Head: Normocephalic, Atraumatic Eyes: Normal Pupils: PERRL - Respiratory Respiratory status: No respiratory distress Chest status: Nontender Breath sounds: Normal Chest palpation: Normal - Cardiovascular Rhythm: Regular Heart sounds: Normal auscultation Murmur: No - Abdominal Inspection: Other - Dry heaving Distension: No distension Bowel sounds: Normal Tenderness: Nontender Organomegaly: No organomegaly - Back Back: Normal, Nontender - Extremities General upper extremity: Normal inspection, Nontender, Normal color, Normal ROM, Normal temperature General lower extremity: Normal inspection, Nontender, Normal color, Normal ROM, Normal temperature, Normal weight bearing. No: Peter's sign - Neurological Neuro grossly intact: Yes Cognition: Normal Orientation: AAOx4 [place] Coma Scale Eye Opening: Spontaneous [place] Coma Scale Verbal: Oriented [place] Coma Scale Motor: Obeys Commands [place] Coma Scale Total: 15 Speech: Normal Motor strength normal: LUE, RUE, LLE, RLE Sensory: Normal - Psychological Associated symptoms: Normal affect, Normal mood - Skin Skin Temperature: Warm Skin Moisture: Dry Skin Color: Normal Course - Re-evaluation Re-evalutation: 01/09/19 20:54 After several rounds of nausea medications patient continues to have dry heaving, she had a period of approximately 1 hour where she had no dry heaving, p.o. challenge was attempted and patient vomited rafia yoselin up a few minutes after attempting to drink it, therefore patient was discussed with primary care provider, Dr. Espinoza who agrees to admit as an observation for further evaluation and treatment - Vital Signs Vital signs: Temp Pulse Resp BP Pulse Ox 98.3 F 102 H 15 156/78 H 100 01/09/19 14:00 01/09/19 14:00 01/09/19 19:01 01/09/19 19:01 01/09/19 19:01 - Laboratory Result Diagrams: 01/09/19 13:58 01/09/19 13:58 Laboratory results interpreted by me: 01/09/19 01/09/19 01/09/19 13:58 13:58 13:58 Hct 35.6 L RDW 15.1 H Seg Neutrophils % 78.3 H VBG HCO3 Sodium 136.6 L Potassium 5.4 H Carbon Dioxide 20 L BUN 43 H Creatinine 1.41 H Est GFR ( Amer) 45 L Est GFR (Non-Af Amer) 37 L Glucose 229 H POC Glucose Serum Osmolality 306 H Calcium 10.4 H Direct Bilirubin 0.5 H Urine Glucose (UA) Urine Ketones Urine Blood Urine Nitrite Ur Leukocyte Esterase 01/09/19 01/09/19 01/09/19 14:17 16:19 17:40 Hct RDW Seg Neutrophils % VBG HCO3 19.9 L Sodium Potassium Carbon Dioxide BUN Creatinine Est GFR ( Amer) Est GFR (Non-Af Amer) Glucose POC Glucose 236 H Serum Osmolality Calcium Direct Bilirubin Urine Glucose (UA) >=500 H Urine Ketones 20 H Urine Blood SMALL H Urine Nitrite POSITIVE H Ur Leukocyte Esterase LARGE H - Diagnostic Test Radiology reviewed: Image reviewed, Reports reviewed - EKG Interpretation by Me EKG shows normal: Sinus rhythm Rate: Normal Rhythm: NSR Discharge - Discharge Clinical Impression: Intractable vomiting Condition: Fair Disposition: ADMITTED OBSERVATION Admitting Provider: Ernie Unit Admitted: Medical Floor Referrals: MILLICENT ESPINOZA MD [Primary Care Provider] - Follow up as needed
[2019-01-09 16:27] LABS: VENOUS BLOOD BASE EXCESS -5.4 mmol/L; VENOUS BLOOD HCO3 19.9 mmol/L (20-32); VENOUS BLOOD PH 7.34 (7.30-7.42)
[2019-01-09] MEDS ORDERED: METOCLOPRAMIDE HCL INJ/PF 10 MG/2 ML SDV IV ONE (16:34)
[2019-01-09] MEDS ORDERED: LIDOCAINE 2% VISCOUS SOLN 20 ML UDCUP PO ONE (16:53)
[2019-01-09] MEDS ORDERED: MAG HYDROX/AL HYDROX/SIMETH SUSP 30 ML UDCUP PO ONE (16:53)
--- NOTE | 2019-01-09 17:37 | RADIOLOGY REPORT (SQ) ---
EXAM DESCRIPTION: CT ABD/PELVIS NO ORAL OR IV COMPLETED DATE/TIME: 01/09/2019 5:09 pm REASON FOR STUDY: vomiting COMPARISON: CT angio chest 05/14/2016 CT pelvis 09/11/2018 TECHNIQUE: CT scan of the abdomen and pelvis performed without intravenous or oral contrast. Images reviewed with lung, soft tissue, and bone windows. Reconstructed coronal and sagittal MPR images revi ewed. All images stored on PACS. All CT scanners at this facility use dose modulation, iterative reconstruction, and/or weight based d osing when appropriate to reduce radiation dose to as low as reasonably achievable (ALARA). [facility]: Dose Right [facility]: CareDose [facility]: Dose Right [facility]: Teradose 4D [facility]: [facility] [employer] RADIATION DOSE: CT Rad equipment meets quality standard of care and radiation dose reduction techniq ues were employed. CTDIvol: 13.3 mGy. DLP: 673 mGy-cm.mGy. LIMITATIONS: None. FINDINGS: LOWER CHEST: Chronic appearing increased interstitial markings at both lung bases NON-CONTRASTED LIVER, SPLEEN, ADRENALS: Evaluation limited by lack of IV contrast. No identified sign ificant masses. PANCREAS: No masses. No peripancreatic inflammatory changes. GALLBLADDER: No identified stones by CT criteria. No inflammatory changes to suggest cholecystitis. RIGHT KIDNEY AND URETER: No suspicious masses. Assessment limited by lack of IV contrast. No signif icant calcifications. No hydronephrosis or hydroureter. LEFT KIDNEY AND URETER: No suspicious masses. Assessment limited by lack of IV contrast. No signifi cant calcifications. No hydronephrosis or hydroureter. AORTA AND RETROPERITONEUM: No aneurysm. No retroperitoneal masses or adenopathy. BOWEL AND PERITONEAL CAVITY: No obvious masses or inflammatory changes. No free fluid. Large amount of stool in the rectosigmoid. APPENDIX: Normal. PELVIS, BLADDER, AND ABDOMINAL WALL:No abnormal masses. No free fluid. Bladder normal. Post hysterec wilfred. BONES: No significant findings. OTHER: No other significant finding. IMPRESSION: NO SIGNIFICANT OR ACUTE PROCESS IN THE ABDOMEN OR PELVIS. COMMENT: Quality ID # 436: Final reports with documentation of one or more dose reduction techniques (e.g., Automated exposure control, adjustment of the mA and/or kV according to patient size, use of iterative reconstruction technique) TECHNICAL DOCUMENTATION: JOB ID: [id number]- All Rights Reserved Reading location - IP/workstation name: [email or web address]
[2019-01-09 18:17] LABS: APPEARANCE,URINE SLIGHTLY-CLOUDY; BILIRUBIN,URINE NEGATIVE (NEGATIVE); COLOR,URINE YELLOW; GLUCOSE, URINE >=500 mg/dL (NEGATIVE); KETONES,URINE 20 mg/dL (NEGATIVE); LEUKOCYTE ESTERASE,URINE LARGE (NEGATIVE); NITRITE,URINE POSITIVE (NEGATIVE); PROTEIN,URINE NEGATIVE (NEGATIVE); URINE SPECIFIC GRAVITY 1.008; UROBILINOGEN,URINE NEGATIVE mg/dL (<2.0)
[2019-01-09] MEDS ORDERED: CEFTRIAXONE INJ 1000 MG VIAL IV ONE (18:35)
[2019-01-09] MEDS ORDERED: FAMOTIDINE INJ/PF 20 MG/2 ML SDV IV ONE (18:35)
[2019-01-09] MEDS ORDERED: PROMETHAZINE HCL INJ 25 MG/1 ML VIAL IV ONE (18:35)
[2019-01-09] MEDS ORDERED: ACETAMINOPHEN 325 MG TABLET PO PRN (20:50)
[2019-01-09] MEDS ORDERED: PROMETHAZINE HCL 25 MG TABLET PO PRN (20:50)
[2019-01-09] MEDS ORDERED: ONDANSETRON HCL INJ/PF 4 MG/2 ML SDV IV PRN (20:50)
[2019-01-09] MEDS ORDERED: DEXTROSE 40% GEL 15 GM TUBE PO PRN ×2 (20:56)
[2019-01-09] MEDS ORDERED: GLUCAGON,HUMAN RECOMB 1 MG INJ IM PRN (20:56)
[2019-01-09] MEDS ORDERED: DEXTROSE 50%-WATER 25 GM/50 ML DISP.SYRIN IV PRN ×2 (20:56)
[2019-01-09] MEDS: PANTOPRAZOLE SODIUM 40 MG VIAL IV SCH (21:23)
[2019-01-09] MEDS: AMLODIPINE BESYLATE 2.5 MG TABLET PO SCH (21:24)
[2019-01-09] MEDS: INSULIN LISPRO 100 UNIT/ML 3 ML VIAL SUBCUT SCH (21:40)
--- NOTE | 2019-01-09 21:51 | RADIOLOGY REPORT (SQ) ---
EXAM DESCRIPTION: XR CHEST 2 VIEWS COMPLETED DATE/TME: 01/09/2019 00:00 CLINICAL HISTORY: 68 years, Female, chf COMPARISON: 11/29/2018 chest NUMBER OF VIEWS: 2 TECHNIQUE: Frontal and lateral views of the chest LIMITATIONS: None. FINDINGS: The heart size is normal. Osteopenia. No pneumothorax. Lungs are clear IMPRESSION: No acute cardiopulmonary process copyright 2010 [employer]- All Rights Reserved
--- NOTE | 2019-01-09 22:56 | EKG REPORT ---
SEVERITY:- ABNORMAL ECG - SINUS RHYTHM LEFT VENTRICULAR HYPERTROPHY : Confirmed by: Pippa Magana 09-Jan-2019 22:55:56
[2019-01-10] MEDS: NORMAL SALINE 1000 ML 1,000 ML IV PRN ×2 (02:48→21:34)
[2019-01-10 04:10] LABS: ABSOLUTE BASOPHILS # (AUTO) 0.1 10^3/uL (0.0-0.2); ABSOLUTE LYMPHOCYTES (AUTO) 1.8 10^3/uL (0.5-4.7); ABSOLUTE MONOCYTES (AUTO) 0.5 10^3/uL (0.1-1.4); ABSOLUTE NEUT (AUTO) 6.5 10^3/uL (1.7-8.2); BASOPHILS % (AUTO) 0.6 % (0-2); HEMATOCRIT 31.8 % (36.0-47.0); HEMOGLOBIN 10.7 g/dL (12.0-15.5); LYMPHOCYTES % (AUTO) 20.7 % (13-45); MEAN CORPUSCULAR HGB CONC 33.6 g/dL (32.0-36.0); MEAN CORPUSCULAR VOLUME 83 fl (80-97); MONOCYTES % (AUTO) 5.3 % (3-13); PLATELET COUNT 297 10^3/uL (150-450); RED BLOOD COUNT 3.82 10^6/uL (3.72-5.28); RED CELL DISTRIBUTION WIDTH 14.5 % (11.5-14.0); SEGMENTED NEUTROPHILS % (AUTO) 73.4 % (42-78); TOTAL CELLS COUNTED % (AUTO) 100 %; WHITE BLOOD COUNT 8.8 10^3/uL (4.0-10.5)
[2019-01-10 04:36] LABS: ALANINE AMINOTRANSFERASE 21 U/L (9-52); ALBUMIN 3.7 g/dL (3.5-5.0); ALKALINE PHOSPHATASE 69 U/L (38-126); ANION GAP 15 (5-19); ASPARTATE AMINO TRANSFERASE 13 U/L (14-36); BILIRUBIN,DIRECT 0.3 mg/dL (0.0-0.4); BILIRUBIN,TOTAL 0.4 mg/dL (0.2-1.3); BLOOD UREA NITROGEN 28 mg/dL (7-20); CALCIUM 8.6 mg/dL (8.4-10.2); CARBON DIOXIDE 19 mmol/L (22-30); CHLORIDE 108 mmol/L (98-107); GLUCOSE 150 mg/dL (75-110); SODIUM 141.7 mmol/L (137-145); TOTAL PROTEIN 6.6 g/dL (6.3-8.2)
[2019-01-10 04:37] LABS: CREATINE KINASE < 20 U/L (30-135)
[2019-01-10 04:45] LABS: TROPONIN I 0.014 ng/mL
[2019-01-10 04:47] LABS: POTASSIUM 4.3 mmol/L (3.6-5.0)
--- NOTE | 2019-01-10 09:00 | PDOC H&P ---
History of Present Illness Admission Date/PCP: 01/09/19 21:05 MILLICENT ESPINOZA MD Patient complains of: Nausea and vomiting History of Present Illness: GUIDO GARCIA is a 68 year old female This is a 68-year-old female with a history of the type 2 diabetes uncontrolled due to noncompliance not follow the office with a history of the hypertension's hyperlipidemia history of the peripheral vascular disease morbid obesity and history of aortic stenosis and congestive heart failure with diastolic dysfunctions again not follow cardiology as supposed to bring to the emergency department with the persistent nausea and vomiting for several days and according to the patient she is unable to eat for us month In the emergency department patient was dehydrated in mild renal failure Patient also have a recently had diarrhea episodes currently better Patient's denied any abdominal pain but patient is complaining of her severe acid reflux and gastritis Patient's denied any chest pain to than any shortness of the breath No fever no chills In the emergency department CT abdomen and pelvis without contrast negative for any acute findings Patient had a questionable UTI put on IV Rocephin Patient does not speak any [place]ese Discussed with the patient's today's still having some nausea vomiting and according to the patient this is been going on for almost a month Patient's appetite is poor Discussed with the patient's daughter and patient usually unable to walk due to the morbid obesity's and arthritis and a joint problems Past Medical History Cardiac Medical History: Reports: Congestive Heart Failure, Hypertension, Heart Murmur Denies: Myocardial Infarction Pulmonary Medical History: Denies: Asthma, Bronchitis, Chronic Obstructive Pulmonary Disease (COPD), Pneumonia, Tuberculosis Neurological Medical History: Denies: Seizures Endocrine Medical History: Reports: Diabetes Mellitus Type 2 Renal/ Medical History: Reports: Chronic Kidney Disease Denies: End Stage Renal Disease GI Medical History: Reports: Gastroesophageal Reflux Disease - Yes 3 I was looking just cut down to the anal is running is running 110 1 Denies: Cirrhosis Musculoskeltal Medical History: Denies: Arthritis Psychiatric Medical History: Denies: Bipolar Disorder, Depression Hematology: Denies: Anemia, Bleeding Tendencies Social History Smoking Status: Unknown if Ever Smoked Frequency of Alcohol Use: None Hx Recreational Drug Use: No Drugs: None Hx Prescription Drug Abuse: No - Advance Directive Resuscitation Status: Full Code Family History Family History: Reviewed & Not Pertinent Parental Family History Reviewed: Yes Children Family History Reviewed: Yes Sibling(s) Family History Reviewed.: Yes Medication/Allergy Home Medications: Clonidine HCl [Catapres 0.1 mg Tablet] 0.1 mg PO BID 01/09/19 Cyanocobalamin/Cobamamide [Vitamin B-12 5,000 Mcg Tab Sl] 5,000 mcg SL DAILY 01/09/19 Ferrous Sulfate [Feosol 325 mg Tablet] 325 mg PO DAILY 01/09/19 Furosemide [Lasix 20 mg Tablet] 20 mg PO DAILY 01/09/19 Glimepiride [Amaryl 4 mg Tablet] 4 mg PO DAILY 01/09/19 Metformin HCl [Metformin HCl ER] 500 mg PO BID 01/09/19 Metoprolol Succinate [Toprol Xl 25 mg Tab.sr] 12.5 mg PO Q12 01/09/19 Pioglitazone HCl [Actos] 30 mg PO DAILY 01/09/19 Allergies/Adverse Reactions: No Known Allergies Allergy (Verified 05/14/16 04:21) Review of Systems Constitutional: PRESENT: fatigue, weakness. ABSENT: chills, fever(s), headache(s), weight gain, weight loss Eyes: ABSENT: visual disturbances Ears: ABSENT: hearing changes Cardiovascular: ABSENT: chest pain, dyspnea on exertion, edema, orthropnea, palpitations Respiratory: ABSENT: cough, hemoptysis Gastrointestinal: PRESENT: heartburn, nausea, vomiting. ABSENT: abdominal pain, constipation, diarrhea, hematemesis, hematochezia Genitourinary: ABSENT: dysuria, hematuria Musculoskeletal: ABSENT: joint swelling Integumentary: ABSENT: rash, wounds Neurological: ABSENT: abnormal gait, abnormal speech, confusion, dizziness, focal weakness, syncope Psychiatric: ABSENT: anxiety, depression, homidical ideation, suicidal ideation Endocrine: ABSENT: cold intolerance, heat intolerance, menstrual abnormalities, polydipsia, polyuria Hematologic/Lymphatic: ABSENT: easy bleeding, easy bruising, lymphadenopathy Physical Exam Vital Signs: Temp Pulse Resp BP Pulse Ox 98.1 F 101 H 15 117/59 L 100 01/10/19 00:18 01/10/19 00:18 01/10/19 00:18 01/10/19 00:18 01/10/19 00:18 Intake & Output 01/09/19 01/10/19 01/11/19 06:59 06:59 06:59 Intake Total 2000 Output Total 400 Balance 1600 Weight 71.1 kg General appearance: PRESENT: no acute distress, well-developed, well-nourished Head exam: PRESENT: atraumatic, normocephalic Eye exam: PRESENT: conjunctiva pink, EOMI, PERRLA. ABSENT: scleral icterus Ear exam: PRESENT: normal external ear exam Mouth exam: PRESENT: moist, tongue midline Neck exam: PRESENT: full ROM. ABSENT: carotid bruit, JVD, lymphadenopathy, thyromegaly Respiratory exam: PRESENT: clear to auscultation aishwarya Cardiovascular exam: PRESENT: RRR. ABSENT: diastolic murmur, rubs, systolic murmur Vascular exam: PRESENT: normal capillary refill GI/Abdominal exam: PRESENT: normal bowel sounds, soft. ABSENT: distended, guarding, mass, organolmegaly, rebound, tenderness Rectal exam: PRESENT: deferred Extremities exam: ABSENT: pedal edema Additional comments: On the right heel there is a eschar Neurological exam: PRESENT: alert, awake, oriented to person, oriented to place, oriented to time, oriented to situation, CN II-XII grossly intact. ABSENT: motor sensory deficit Psychiatric exam: PRESENT: appropriate affect, normal mood. ABSENT: homicidal ideation, suicidal ideation Skin exam: PRESENT: dry, intact, warm. ABSENT: cyanosis, rash Results Laboratory Results: 01/10/19 04:00 01/10/19 04:00 01/09/19 01/09/19 01/09/19 13:58 13:58 13:58 WBC 8.7 RBC 4.32 Hgb 12.3 Hct 35.6 L MCV 83 MCH 28.5 MCHC 34.5 RDW 15.1 H Plt Count 332 Seg Neutrophils % 78.3 H Lymphocytes % 16.5 Monocytes % 3.8 Eosinophils % 0.6 Basophils % 0.8 Absolute Neutrophils 6.8 Absolute Lymphocytes 1.4 Absolute Monocytes 0.3 Absolute Eosinophils 0.1 Absolute Basophils 0.1 VBG pH VBG pCO2 VBG HCO3 VBG Base Excess Sodium 136.6 L Potassium 5.4 H Chloride 101 Carbon Dioxide 20 L Anion Gap 16 BUN 43 H Creatinine 1.41 H Est GFR ( Amer) 45 L Est GFR (Non-Af Amer) 37 L Glucose 229 H Serum Osmolality 306 H Calcium 10.4 H Magnesium Total Bilirubin 0.8 AST 20 ALT 16 Alkaline Phosphatase 77 Total Protein 7.9 Albumin 4.2 Lipase 200.5 Urine Color Urine Appearance Urine pH Ur Specific [place] Urine Protein Urine Glucose (UA) Urine Ketones Urine Blood Urine Nitrite Ur Leukocyte Esterase Urine WBC (Auto) Urine RBC (Auto) 01/09/19 01/09/19 01/10/19 16:19 17:40 04:00 WBC 8.8 RBC 3.82 Hgb 10.7 L Hct 31.8 L MCV 83 MCH 28.0 MCHC 33.6 RDW 14.5 H Plt Count 297 Seg Neutrophils % 73.4 Lymphocytes % 20.7 Monocytes % 5.3 Eosinophils % 0.0 Basophils % 0.6 Absolute Neutrophils 6.5 Absolute Lymphocytes 1.8 Absolute Monocytes 0.5 Absolute Eosinophils 0.0 Absolute Basophils 0.1 VBG pH 7.34 VBG pCO2 38.0 VBG HCO3 19.9 L VBG Base Excess -5.4 Sodium Potassium Chloride Carbon Dioxide Anion Gap BUN Creatinine Est GFR ( Amer) Est GFR (Non-Af Amer) Glucose Serum Osmolality Calcium Magnesium Total Bilirubin AST ALT Alkaline Phosphatase Total Protein Albumin Lipase Urine Color YELLOW Urine Appearance SLIGHTLY-CLOUDY Urine pH 5.0 Ur Specific [place] 1.008 Urine Protein NEGATIVE Urine Glucose (UA) >=500 H Urine Ketones 20 H Urine Blood SMALL H Urine Nitrite POSITIVE H Ur Leukocyte Esterase LARGE H Urine WBC (Auto) 17 Urine RBC (Auto) 1 01/10/19 04:00 WBC RBC Hgb Hct MCV MCH MCHC RDW Plt Count Seg Neutrophils % Lymphocytes % Monocytes % Eosinophils % Basophils % Absolute Neutrophils Absolute Lymphocytes Absolute Monocytes Absolute Eosinophils Absolute Basophils VBG pH VBG pCO2 VBG HCO3 VBG Base Excess Sodium 141.7 Potassium 4.3 D Chloride 108 H Carbon Dioxide 19 L Anion Gap 15 BUN 28 H Creatinine 0.97 Est GFR ( Amer) > 60 Est GFR (Non-Af Amer) 57 L Glucose 150 H Serum Osmolality Calcium 8.6 Magnesium 1.5 L Total Bilirubin 0.4 AST 13 L ALT 21 Alkaline Phosphatase 69 Total Protein 6.6 Albumin 3.7 Lipase Urine Color Urine Appearance Urine pH Ur Specific [place] Urine Protein Urine Glucose (UA) Urine Ketones Urine Blood Urine Nitrite Ur Leukocyte Esterase Urine WBC (Auto) Urine RBC (Auto) 01/10/19 01/10/19 04:00 04:00 Creatine Kinase < 20 L Troponin I 0.014 NT-Pro-B Natriuret Pep 1790 H Impressions: Chest X-Ray 01/09/19 00:00 IMPRESSION: No acute cardiopulmonary process copyright 2010 [employer]- All Rights Reserved Abdomen/Pelvis CT 01/09/19 16:59 IMPRESSION: NO SIGNIFICANT OR ACUTE PROCESS IN THE ABDOMEN OR PELVIS. Assessment & Plan - Diagnosis (1) Intractable vomiting Qualifiers: Vomiting type: cyclical vomiting Nausea presence: with nausea Qualified Code(s): G43.A1 - Cyclical vomiting, intractable Is this a current diagnosis for this admission?: Yes Plan: Most likely possible gastritis versus gallbladder disease Start the patient on Protonix 40 mg IV every 12 Will consult the GI for further evaluations (2) Acute renal failure Qualifiers: Acute renal failure type: unspecified Qualified Code(s): N17.9 - Acute kidney failure, unspecified Is this a current diagnosis for this admission?: Yes Plan: Most likely due to the dehydration's, IV fluid (3) Hyperkalemia Is this a current diagnosis for this admission?: Yes Plan: Most likely from the dehydration's currently all resolved (4) Gastroesophageal reflux disease Qualifiers: Esophagitis presence: with esophagitis Qualified Code(s): K21.0 - Gastro- esophageal reflux disease with esophagitis Is this a current diagnosis for this admission?: Yes Plan: Continues to Protonix 40 mg IV q 12 (5) Aortic stenosis Qualifiers: Cardiac valve disease etiology: nonrheumatic Qualified Code(s): I35.0 - Nonrheumatic aortic (valve) stenosis Is this a current diagnosis for this admission?: Yes Plan: Currently stable's as per Dr. Magana's going to see the patient's order the 2D echocardiogram today (6) Congestive heart failure Qualifiers: Heart failure type: diastolic Is this a current diagnosis for this admission?: Yes Plan: Currently all stable (7) Diabetes Qualifiers: Diabetes mellitus type: type 2 Diabetes mellitus complication status: with unspecified complications Is this a current diagnosis for this admission?: Yes Plan: Continues to current medications (8) Obesity Is this a current diagnosis for this admission?: Yes (9) Diabetic foot ulcer Qualifiers: Diabetic foot ulcer location: heel Diabetes mellitus type: type 2 Is this a current diagnosis for this admission?: Yes Plan: Consult the surgery (10) Urinary tract infection Qualifiers: Urinary tract infection type: site unspecified Is this a current diagnosis for this admission?: Yes Plan: Continue IV Rocephin Wait for the urine culture - Time Time Spent: 30 to 50 Minutes Medications reviewed and adjusted accordingly: Yes Anticipated discharge: Home Within: Other - Inpatient Certification Based on my medical assessment, after consideration of the patient's comorbidities, presenting symptoms, or acuity I expect that the services needed warrant INPATIENT care.: Yes I certify that my determination is in accordance with my understanding of Medicare's requirements for reasonable and necessary INPATIENT services [42 CFR 412.3e].: Yes Medical Necessity: Need Close Monitoring Due to Risk of Patient Decompensation, Need For IV Fluids, Need for IV Antibiotics Post Hospital Care: D/C [employer] Documentation - Plan Summary Plan Summary: discuss with the patient's with extensively and discussed with the daughter very extensively regarding the patient's current condition and all plan and the test pt Is a very noncompliance with so many reason
[2019-01-10] MEDS ORDERED: [UNRECOGNIZED DRUG - OTHER] SL SCH (10:00)
--- NOTE | 2019-01-10 11:04 | RADIOLOGY REPORT (SQ) ---
EXAM DESCRIPTION: U/S ABDOMEN COMPLETE W/O DOP COMPLETED DATE/TIME: 01/10/2019 10:55 am REASON FOR STUDY: Nausea vomiting rule out gallbladder disease COMPARISON: None. TECHNIQUE: Dynamic and static grayscale images acquired of the abdomen and recorded on PACS. Additio nal selected color Doppler and spectral images recorded. Note: Study does not meet criteria for complete doppler/duplex scan LIMITATIONS: The patient was unable to roll into the left lateral decubitus position for evaluation of the gallbladder. FINDINGS: PANCREAS: No masses. Visualized pancreatic duct normal caliber. LIVER: No masses. Echotexture normal. LIVER VASCULATURE: Normal directional flow of the main portal vein and hepatic veins. GALLBLADDER: No stones. Normal wall thickness. No pericholecystic fluid. ULTRASOUND-DETECTED HERNANDEZ'S SIGN: Negative. INTRAHEPATIC DUCTS AND COMMON DUCT: CBD and intrahepatic ducts normal caliber. No filling defects. INFERIOR VENA CAVA: Normal flow. AORTA: No aneurysm. RIGHT KIDNEY: Normal size. Normal echogenicity. No solid or suspicious masses. No hydronephros is. No calcifications. LEFT KIDNEY: Normal size. Normal echogenicity. No solid or suspicious masses. No hydronephrosi s. No calcifications. SPLEEN: Normal size. No solid masses. PERITONEAL AND PLEURAL SPACES: No ascites or effusions. OTHER: No other significant finding. IMPRESSION: NORMAL ABDOMINAL ULTRASOUND. TECHNICAL DOCUMENTATION: JOB ID: [id number] [employer]- All Rights Reserved Reading location - IP/workstation name: [email or web address]
[2019-01-10] MEDS: INSULIN LISPRO 100 UNIT/ML 3 ML VIAL SUBCUT SCH ×4 (11:47→21:28)
[2019-01-10] MEDS: GLIMEPIRIDE 4 MG TABLET PO SCH (11:48)
[2019-01-10] MEDS: PIOGLITAZONE HCL 30 MG TABLET PO SCH (11:48)
[2019-01-10] MEDS: ENOXAPARIN SODIUM INJ 30 MG/0.3 ML DISP.SYRIN SUBCUT SCH (11:49)
[2019-01-10] MEDS: FERROUS SULFATE 325 MG TABLET PO SCH (11:49)
[2019-01-10] MEDS: FUROSEMIDE 20 MG TABLET PO SCH (11:49)
--- NOTE | 2019-01-10 11:55 | PDOC CONSULTATION ---
Consultation Consult Date: 01/10/19 Attending physician:: NAEEM PARRA Consult reason:: nausea and vomiting. ? diabetic gastroparesis History of Present Illness Admission Date/PCP: 01/09/19 21:05 MILLICENT KLEIN MD History of Present Illness: GUIDO GARCIA is a 68 year old female I am asked to see this patient by Dr Klein patient is a long standing diabetic patient has been having nausea and vomiting she is not able to tolerate any oral intake patient admitted CT scan is negative, ultrasound is negative patient will need EGD done spoke with daughter she is willing to have mom undergo procedure Past Medical History Cardiac Medical History: Reports: Congestive Heart Failure, Hypertension, Heart Murmur Denies: Myocardial Infarction Pulmonary Medical History: Denies: Asthma, Bronchitis, Chronic Obstructive Pulmonary Disease (COPD), Pneumonia, Tuberculosis Neurological Medical History: Denies: Seizures Endocrine Medical History: Reports: Diabetes Mellitus Type 2 Renal/ Medical History: Reports: Chronic Kidney Disease Denies: End Stage Renal Disease GI Medical History: Reports: Gastroesophageal Reflux Disease - Yes 3 I was looking just cut down to the anal is running is running 110 1 Denies: Cirrhosis Musculoskeltal Medical History: Denies: Arthritis Psychiatric Medical History: Denies: Bipolar Disorder, Depression Hematology: Denies: Anemia, Bleeding Tendencies Social History Smoking Status: Unknown if Ever Smoked Frequency of Alcohol Use: None Hx Recreational Drug Use: No Drugs: None Hx Prescription Drug Abuse: No - Advance Directive Resuscitation Status: Full Code Family History Family History: Reviewed & Not Pertinent Parental Family History Reviewed: Yes Children Family History Reviewed: Unknown Sibling(s) Family History Reviewed.: Unknown Medication/Allergy Home Medications: Clonidine HCl [Catapres 0.1 mg Tablet] 0.1 mg PO BID 01/09/19 Cyanocobalamin/Cobamamide [Vitamin B-12 5,000 Mcg Tab Sl] 5,000 mcg SL DAILY 01/09/19 Ferrous Sulfate [Feosol 325 mg Tablet] 325 mg PO DAILY 01/09/19 Furosemide [Lasix 20 mg Tablet] 20 mg PO DAILY 01/09/19 Glimepiride [Amaryl 4 mg Tablet] 4 mg PO DAILY 01/09/19 Metformin HCl [Metformin HCl ER] 500 mg PO BID 01/09/19 Metoprolol Succinate [Toprol Xl 25 mg Tab.sr] 12.5 mg PO Q12 01/09/19 Pioglitazone HCl [Actos] 30 mg PO DAILY 01/09/19 Allergies/Adverse Reactions: No Known Allergies Allergy (Verified 05/14/16 04:21) Review of Systems Constitutional: ABSENT: fever(s), headache(s), night sweats, weakness Eyes: ABSENT: visual disturbances Ears: ABSENT: hearing changes Nose, Mouth, and Throat: PRESENT: mouth pain, sore throat Cardiovascular: ABSENT: edema, orthropnea, palpitations Respiratory: ABSENT: dyspnea, hemoptysis Gastrointestinal: PRESENT: nausea, vomiting. ABSENT: melena Genitourinary: ABSENT: dysuria, hematuria Musculoskeletal: ABSENT: deformity, joint swelling Integumentary: ABSENT: lesions, pruritus Neurological: ABSENT: syncope, tingling, tremor(s), vertigo Endocrine: ABSENT: polydipsia, polyphagia, polyuria Hematologic/Lymphatic: ABSENT: easy bruising Physical Exam Vital Signs: Temp Pulse Resp BP Pulse Ox 98.1 F 101 H 15 117/59 L 100 01/10/19 00:18 01/10/19 00:18 01/10/19 00:18 01/10/19 00:18 01/10/19 00:18 Intake & Output 01/09/19 01/10/19 01/11/19 06:59 06:59 06:59 Intake Total 2000 Output Total 400 Balance 1600 Weight 71.1 kg General appearance: PRESENT: no acute distress, well-developed, well-nourished Head exam: PRESENT: atraumatic, normocephalic Eye exam: PRESENT: EOMI, PERRLA. ABSENT: nystagmus, periorbital swelling, scleral icterus Mouth exam: PRESENT: moist, neck supple Throat exam: ABSENT: tonsillar exudate, tonsillogmegaly Neck exam: ABSENT: meningismus, tenderness, thyromegaly Respiratory exam: PRESENT: symmetrical, unlabored. ABSENT: tachypnea, wheezes Cardiovascular exam: PRESENT: +S1, +S2 GI/Abdominal exam: PRESENT: soft. ABSENT: Pedraza's sign, rebound, rigid Musculoskeletal exam: PRESENT: full ROM Neurological exam: PRESENT: oriented to time, oriented to situation, CN II-XII grossly intact Focused psych exam: ABSENT: restlessness Skin exam: PRESENT: normal color. ABSENT: mottled, pallor, urticaria, vesicles Results Laboratory Results: 01/10/19 04:00 01/10/19 04:00 01/09/19 01/09/19 01/09/19 13:58 13:58 13:58 WBC 8.7 RBC 4.32 Hgb 12.3 Hct 35.6 L MCV 83 MCH 28.5 MCHC 34.5 RDW 15.1 H Plt Count 332 Seg Neutrophils % 78.3 H Lymphocytes % 16.5 Monocytes % 3.8 Eosinophils % 0.6 Basophils % 0.8 Absolute Neutrophils 6.8 Absolute Lymphocytes 1.4 Absolute Monocytes 0.3 Absolute Eosinophils 0.1 Absolute Basophils 0.1 VBG pH VBG pCO2 VBG HCO3 VBG Base Excess Sodium 136.6 L Potassium 5.4 H Chloride 101 Carbon Dioxide 20 L Anion Gap 16 BUN 43 H Creatinine 1.41 H Est GFR ( Amer) 45 L Est GFR (Non-Af Amer) 37 L Glucose 229 H Serum Osmolality 306 H Calcium 10.4 H Magnesium Total Bilirubin 0.8 AST 20 ALT 16 Alkaline Phosphatase 77 Total Protein 7.9 Albumin 4.2 Lipase 200.5 Urine Color Urine Appearance Urine pH Ur Specific [place] Urine Protein Urine Glucose (UA) Urine Ketones Urine Blood Urine Nitrite Ur Leukocyte Esterase Urine WBC (Auto) Urine RBC (Auto) 01/09/19 01/09/19 01/10/19 16:19 17:40 04:00 WBC 8.8 RBC 3.82 Hgb 10.7 L Hct 31.8 L MCV 83 MCH 28.0 MCHC 33.6 RDW 14.5 H Plt Count 297 Seg Neutrophils % 73.4 Lymphocytes % 20.7 Monocytes % 5.3 Eosinophils % 0.0 Basophils % 0.6 Absolute Neutrophils 6.5 Absolute Lymphocytes 1.8 Absolute Monocytes 0.5 Absolute Eosinophils 0.0 Absolute Basophils 0.1 VBG pH 7.34 VBG pCO2 38.0 VBG HCO3 19.9 L VBG Base Excess -5.4 Sodium Potassium Chloride Carbon Dioxide Anion Gap BUN Creatinine Est GFR ( Amer) Est GFR (Non-Af Amer) Glucose Serum Osmolality Calcium Magnesium Total Bilirubin AST ALT Alkaline Phosphatase Total Protein Albumin Lipase Urine Color YELLOW Urine Appearance SLIGHTLY-CLOUDY Urine pH 5.0 Ur Specific [place] 1.008 Urine Protein NEGATIVE Urine Glucose (UA) >=500 H Urine Ketones 20 H Urine Blood SMALL H Urine Nitrite POSITIVE H Ur Leukocyte Esterase LARGE H Urine WBC (Auto) 17 Urine RBC (Auto) 1 01/10/19 04:00 WBC RBC Hgb Hct MCV MCH MCHC RDW Plt Count Seg Neutrophils % Lymphocytes % Monocytes % Eosinophils % Basophils % Absolute Neutrophils Absolute Lymphocytes Absolute Monocytes Absolute Eosinophils Absolute Basophils VBG pH VBG pCO2 VBG HCO3 VBG Base Excess Sodium 141.7 Potassium 4.3 D Chloride 108 H Carbon Dioxide 19 L Anion Gap 15 BUN 28 H Creatinine 0.97 Est GFR ( Amer) > 60 Est GFR (Non-Af Amer) 57 L Glucose 150 H Serum Osmolality Calcium 8.6 Magnesium 1.5 L Total Bilirubin 0.4 AST 13 L ALT 21 Alkaline Phosphatase 69 Total Protein 6.6 Albumin 3.7 Lipase Urine Color Urine Appearance Urine pH Ur Specific [place] Urine Protein Urine Glucose (UA) Urine Ketones Urine Blood Urine Nitrite Ur Leukocyte Esterase Urine WBC (Auto) Urine RBC (Auto) 01/10/19 01/10/19 04:00 04:00 Creatine Kinase < 20 L Troponin I 0.014 NT-Pro-B Natriuret Pep 1790 H Impressions: Chest X-Ray 01/09/19 00:00 IMPRESSION: No acute cardiopulmonary process copyright 2011 [employer]- All Rights Reserved Abdomen/Pelvis CT 01/09/19 16:59 IMPRESSION: NO SIGNIFICANT OR ACUTE PROCESS IN THE ABDOMEN OR PELVIS. Abdomen Ultrasound 01/10/19 00:00 IMPRESSION: NORMAL ABDOMINAL ULTRASOUND. Assessment & Plan - Diagnosis (1) Gastroesophageal reflux disease Qualifiers: Esophagitis presence: with esophagitis Qualified Code(s): K21.0 - Gastro- esophageal reflux disease with esophagitis Is this a current diagnosis for this admission?: Yes Plan: will need PPI will schedule an EGD Risks, benefits and alternatives are discussed (2) Intractable vomiting Qualifiers: Vomiting type: cyclical vomiting Nausea presence: with nausea Qualified Code(s): G43.A1 - Cyclical vomiting, intractable Is this a current diagnosis for this admission?: Yes Plan: may be a candidate for Botox injection at the gastric outlet patient willing to proceed further recommendations to follow - Time Time Spent: 50 to 70 Minutes
[2019-01-10] MEDS ORDERED: ONDANSETRON HCL INJ/PF 4 MG/2 ML SDV ONE (11:58)
[2019-01-10] MEDS ORDERED: DIPHENHYDRAMINE HCL 50 MG/ML VIAL ONE (11:58)
[2019-01-10] MEDS ORDERED: FLUMAZENIL INJ 0.5 MG/5 ML VIAL ONE (11:58)
[2019-01-10] MEDS ORDERED: NALOXONE HCL INJ/PF 0.4 MG/1 ML SDV ONE (11:58)
[2019-01-10] MEDS ORDERED: FENTANYL CITRATE INJ/PF 100 MCG/2 ML AMPUL ONE (11:58)
[2019-01-10] MEDS ORDERED: EPINEPHRINE INJ 1 MG/10 ML DISP.SYRIN ONE (11:59)
[2019-01-10] MEDS ORDERED: GLUCAGON,HUMAN RECOMB 1 MG INJ ONE (11:59)
[2019-01-10] MEDS: MIDAZOLAM 2 MG/2 ML INJ ONE ×2 (12:24→12:28)
[2019-01-10] MEDS ORDERED: ONABOTULINUMTOXINA INJ/PF 100 UNIT SDV IM ONE (12:30)
--- NOTE | 2019-01-10 12:39 | Operative Report ---
Operative Report DATE OF SURGERY: 01/10/19 Operative Report: The risks benefits and alternatives of the procedure explained to the patient in detail and informed consent is obtained.A GIF Olympus video scope was inserted into the patient's mouth and hypopharynx, the esophagus is identified intubated and insufflated, the scope was then advanced through the esophagus stomach and duodenum, retroflexion maneuver is done, the esophagus stomach and first and second portions of the duodenum examined. PREOPERATIVE DIAGNOSIS: Nausea vomiting gastroparesis POSTOPERATIVE DIAGNOSIS: Gastritis status post biopsy rule out Helicobacter pylori. Submucosal Botox injection at the gastric outlet, 20 units/mL, total of 5 mL OPERATION: EGD with submucosal injection. EGD with biopsy SURGEON: NAEEM PARRA ANESTHESIA: Moderate Sedation - 3 mg of Versed, 25 mcg of fentanyl. Conscious sedation monitoring time 30 minutes. TISSUE REMOVED OR ALTERED: As noted above. COMPLICATIONS: None. ESTIMATED BLOOD LOSS: None. INTRAOPERATIVE FINDINGS: As noted above. PROCEDURE: Patient tolerated the procedure well. No immediate postprocedure comp occasions are noted. Patient is sent back to her room in good condition. Resume regular diet as tolerated Resume previous activity level We will follow-up on symptoms Start PPI and antiemetic
[2019-01-10] MEDS: AMLODIPINE BESYLATE 2.5 MG TABLET PO SCH ×2 (14:52→21:29)
[2019-01-10] MEDS: CLONIDINE HCL 0.1 MG TABLET PO SCH ×2 (14:52→19:38)
[2019-01-10] MEDS: METOPROLOL SUCCINATE 25 MG TAB.SR.24H PO SCH ×2 (14:52→21:28)
[2019-01-10] MEDS: PANTOPRAZOLE SODIUM 40 MG VIAL IV SCH ×2 (14:53→21:28)
--- NOTE | 2019-01-10 15:41 | PDOC CONSULTATION ---
Consultation Consult Date: 01/10/19 Consult reason:: Right heel sore History of Present Illness Admission Date/PCP: 01/09/19 21:05 MILLICENT ESPINOZA MD Patient complains of: no pains History of Present Illness: GUIDO GARCIA is a 68 year old female with history of hypertension and DM type 2 who has been getting weak past several days. Daughter claims patient not ambulating anymore because of weakness and practically bedridden.. Noted to have a dry pressure sore on the right heel. Had vomiting episode prior to admission yesterday and for this Dr Cain did EGD today. Past Medical History Cardiac Medical History: Reports: Congestive Heart Failure, Hypertension, Heart Murmur Denies: Myocardial Infarction Pulmonary Medical History: Denies: Asthma, Bronchitis, Chronic Obstructive Pulmonary Disease (COPD), Pneumonia, Tuberculosis Neurological Medical History: Denies: Seizures Endocrine Medical History: Reports: Diabetes Mellitus Type 2 Renal/ Medical History: Reports: Chronic Kidney Disease Denies: End Stage Renal Disease GI Medical History: Reports: Gastroesophageal Reflux Disease - Yes 3 I was looking just cut down to the anal is running is running 110 1 Denies: Cirrhosis Musculoskeltal Medical History: Denies: Arthritis Psychiatric Medical History: Denies: Bipolar Disorder, Depression Hematology: Denies: Anemia, Bleeding Tendencies Social History Smoking Status: Unknown if Ever Smoked Frequency of Alcohol Use: None Hx Recreational Drug Use: No Drugs: None Hx Prescription Drug Abuse: No - Advance Directive Resuscitation Status: Full Code Family History Family History: Reviewed & Not Pertinent Parental Family History Reviewed: Yes Children Family History Reviewed: No Sibling(s) Family History Reviewed.: No Medication/Allergy Home Medications: Clonidine HCl [Catapres 0.1 mg Tablet] 0.1 mg PO BID 01/09/19 Cyanocobalamin/Cobamamide [Vitamin B-12 5,000 Mcg Tab Sl] 5,000 mcg SL DAILY 01/09/19 Ferrous Sulfate [Feosol 325 mg Tablet] 325 mg PO DAILY 01/09/19 Furosemide [Lasix 20 mg Tablet] 20 mg PO DAILY 01/09/19 Glimepiride [Amaryl 4 mg Tablet] 4 mg PO DAILY 01/09/19 Metformin HCl [Metformin HCl ER] 500 mg PO BID 01/09/19 Metoprolol Succinate [Toprol Xl 25 mg Tab.sr] 12.5 mg PO Q12 01/09/19 Pioglitazone HCl [Actos] 30 mg PO DAILY 01/09/19 Allergies/Adverse Reactions: No Known Allergies Allergy (Verified 05/14/16 04:21) Review of Systems ROS unobtainable: Due to mental status Physical Exam Vital Signs: Temp Pulse Resp BP Pulse Ox 98.1 F 100 16 135/84 H 100 01/10/19 00:18 01/10/19 13:00 01/10/19 13:00 01/10/19 13:00 01/10/19 13:00 Intake & Output 01/09/19 01/10/19 01/11/19 06:59 06:59 06:59 Intake Total 2000 100 Output Total 400 Balance 1600 100 Weight 71.1 kg General appearance: PRESENT: no acute distress Head exam: PRESENT: atraumatic Eye exam: PRESENT: conjunctiva pink Mouth exam: PRESENT: moist Neck exam: PRESENT: full ROM Respiratory exam: PRESENT: clear to auscultation aishwarya Cardiovascular exam: PRESENT: RRR Pulses: PRESENT: normal radial pulses Vascular exam: PRESENT: normal capillary refill GI/Abdominal exam: PRESENT: soft Rectal exam: PRESENT: deferred Extremities exam: PRESENT: other - Right heel with a pressure sore with a dry scab about4 cm in diameter. Non tender. Foot is warm but unable to palpate ankle pulses. palpable pop pulse. Neurological exam: PRESENT: awake, other - Responsive to daughter who speaks [place]. Psychiatric exam: PRESENT: flat affect Skin exam: PRESENT: normal color, warm Results Laboratory Results: 01/10/19 04:00 01/10/19 04:00 01/09/19 01/09/19 01/09/19 13:58 16:19 17:40 WBC RBC Hgb Hct MCV MCH MCHC RDW Plt Count Seg Neutrophils % Lymphocytes % Monocytes % Eosinophils % Basophils % Absolute Neutrophils Absolute Lymphocytes Absolute Monocytes Absolute Eosinophils Absolute Basophils VBG pH 7.34 VBG pCO2 38.0 VBG HCO3 19.9 L VBG Base Excess -5.4 Sodium Potassium Chloride Carbon Dioxide Anion Gap BUN Creatinine Est GFR ( Amer) Est GFR (Non-Af Amer) Glucose Serum Osmolality 306 H Calcium Magnesium Total Bilirubin AST ALT Alkaline Phosphatase Total Protein Albumin Urine Color YELLOW Urine Appearance SLIGHTLY-CLOUDY Urine pH 5.0 Ur Specific [place] 1.008 Urine Protein NEGATIVE Urine Glucose (UA) >=500 H Urine Ketones 20 H Urine Blood SMALL H Urine Nitrite POSITIVE H Ur Leukocyte Esterase LARGE H Urine WBC (Auto) 17 Urine RBC (Auto) 1 01/10/19 01/10/19 04:00 04:00 WBC 8.8 RBC 3.82 Hgb 10.7 L Hct 31.8 L MCV 83 MCH 28.0 MCHC 33.6 RDW 14.5 H Plt Count 297 Seg Neutrophils % 73.4 Lymphocytes % 20.7 Monocytes % 5.3 Eosinophils % 0.0 Basophils % 0.6 Absolute Neutrophils 6.5 Absolute Lymphocytes 1.8 Absolute Monocytes 0.5 Absolute Eosinophils 0.0 Absolute Basophils 0.1 VBG pH VBG pCO2 VBG HCO3 VBG Base Excess Sodium 141.7 Potassium 4.3 D Chloride 108 H Carbon Dioxide 19 L Anion Gap 15 BUN 28 H Creatinine 0.97 Est GFR ( Amer) > 60 Est GFR (Non-Af Amer) 57 L Glucose 150 H Serum Osmolality Calcium 8.6 Magnesium 1.5 L Total Bilirubin 0.4 AST 13 L ALT 21 Alkaline Phosphatase 69 Total Protein 6.6 Albumin 3.7 Urine Color Urine Appearance Urine pH Ur Specific [place] Urine Protein Urine Glucose (UA) Urine Ketones Urine Blood Urine Nitrite Ur Leukocyte Esterase Urine WBC (Auto) Urine RBC (Auto) 01/10/19 01/10/19 04:00 04:00 Creatine Kinase < 20 L Troponin I 0.014 NT-Pro-B Natriuret Pep 1790 H Impressions: Chest X-Ray 01/09/19 00:00 IMPRESSION: No acute cardiopulmonary process copyright 2011 [employer]- All Rights Reserved Abdomen/Pelvis CT 01/09/19 16:59 IMPRESSION: NO SIGNIFICANT OR ACUTE PROCESS IN THE ABDOMEN OR PELVIS. Abdomen Ultrasound 01/10/19 00:00 IMPRESSION: NORMAL ABDOMINAL ULTRASOUND. Assessment & Plan - Diagnosis (2) Diabetes Qualifiers: Diabetes mellitus type: type 2 Diabetes mellitus complication status: with unspecified complications Is this a current diagnosis for this admission?: Yes - Time Time Spent: 30 to 50 Minutes - Plan Summary Plan Summary: Would not debride Right heel sore since it is dry and non tender. Told daughter to prevent pressure on the heel by placing lower leg on a pillow. With patient diabetic with clinically decreased perfusion to the right foot, any wound on the foot would be limb threatening.
--- NOTE | 2019-01-10 19:04 | PDOC PROGRESS REPORT ---
Subjective Progress Note for:: 01/10/19 Subjective:: Patient admitted with mild general debility, inability to ambulate, nausea vomiting and diarrhea. Patient has a history of aortic stenosis based on the prior echocardiogram. Patient was noted to have moderate aortic stenosis previously. Now being referred for a repeat echocardiogram and advise regarding management of aortic stenosis. Patient has diabetes. Currently not complaining of any chest pain, shortness of breath. There is no history of syncope, near syncope or sustained palpitations. Reason For Visit: NAUSEA,VOMITING Physical Exam Vital Signs: Temp Pulse Resp BP Pulse Ox 98.3 F 88 14 118/61 100 01/10/19 17:01 01/10/19 17:01 01/10/19 17:01 01/10/19 17:01 01/10/19 17:01 Intake & Output 01/09/19 01/10/19 01/11/19 06:59 06:59 06:59 Intake Total 2000 250 Output Total 400 Balance 1600 250 Weight 71.1 kg Exam: GENERAL: well-nourished and in no acute distress. Alert and oriented x3. Difficulty conversation with the patient because of language barrier. HEAD: Atraumatic, normocephalic. EYES: [place], sclera anicteric, conjunctiva are normal. ENT: Moist mucous membranes. No oral ulcerations or bleeding gums noted. No obvious ear, nose or throat abnormalities noted. NECK: supple without lymphadenopathy. Trachea is central. No cervical or axillary lymphadenopathy noted. Carotids are 2+, JVD WNL LUNGS: Breath sounds clear bilaterally. No wheezes rales or rhonchi noted. No significant dullness noted on percussion. CHEST: Palpation of the chest wall shows no significant chest wall tenderness. HEART: [place] [facility]OTH[facility] ICU RN, No PSH, 3/6 FAHAD aortic area, 1/6 cosby systolic murmur mitral area, no rubs, no gallops. ABDOMEN: Soft, no significant tenderness appreciated, normoactive bowel sounds. No guarding, no rebound. No rigidity noted . No masses appreciated. EXTREMITIES: Pedal pulses are 1-2+, no calf tenderness noted. No clubbing or cyanosis. negative pedal edema noted NEUROLOGICAL: Focused neurological exam showed no significant neurologic deficit. Normal speech, no focal weakness appreciated. PSYCH: Normal mood, normal affect. Judgment and insight within normal limits. SKIN: No significant ecchymosis, skin is noted to be warm. Ulcer noted left heel. MUSCULOSKELETAL EXAM: No significant acute joint swelling noted. Results Laboratory Results: 01/10/19 04:00 01/10/19 04:00 01/10/19 01/10/19 04:00 04:00 WBC 8.8 RBC 3.82 Hgb 10.7 L Hct 31.8 L MCV 83 MCH 28.0 MCHC 33.6 RDW 14.5 H Plt Count 297 Seg Neutrophils % 73.4 Lymphocytes % 20.7 Monocytes % 5.3 Eosinophils % 0.0 Basophils % 0.6 Absolute Neutrophils 6.5 Absolute Lymphocytes 1.8 Absolute Monocytes 0.5 Absolute Eosinophils 0.0 Absolute Basophils 0.1 Sodium 141.7 Potassium 4.3 D Chloride 108 H Carbon Dioxide 19 L Anion Gap 15 BUN 28 H Creatinine 0.97 Est GFR ( Amer) > 60 Est GFR (Non-Af Amer) 57 L Glucose 150 H Calcium 8.6 Magnesium 1.5 L Total Bilirubin 0.4 AST 13 L ALT 21 Alkaline Phosphatase 69 Total Protein 6.6 Albumin 3.7 01/10/19 01/10/19 04:00 04:00 Creatine Kinase < 20 L Troponin I 0.014 NT-Pro-B Natriuret Pep 1790 H EKG Comments: Sinus rhythm with nonprogression of R waves in anterior precordial lead. No acute ST-T wave changes noted. Chest x-ray shows normal heart size with mild pulmonary venous congestion. Impressions: Chest X-Ray 01/09/19 00:00 IMPRESSION: No acute cardiopulmonary process copyright 2011 [employer]- All Rights Reserved Abdomen/Pelvis CT 01/09/19 16:59 IMPRESSION: NO SIGNIFICANT OR ACUTE PROCESS IN THE ABDOMEN OR PELVIS. Abdomen Ultrasound 01/10/19 00:00 IMPRESSION: NORMAL ABDOMINAL ULTRASOUND. Assessment & Plan - Diagnosis (1) Congestive heart failure Qualifiers: Heart failure type: diastolic Is this a current diagnosis for this admission?: Yes Plan: Currently compensated. Continue baseline diuretic therapy. (2) Aortic stenosis Qualifiers: Cardiac valve disease etiology: nonrheumatic Qualified Code(s): I35.0 - Nonrheumatic aortic (valve) stenosis Is this a current diagnosis for this admission?: Yes Plan: 2D echocardiogram performed was reviewed. It shows peak gradient of 70 mmHg and mean gradient of 40 mmHg. Patient has normal LVEF, trace aortic incompetence, trace mitral regurgitation, mild tricuspid regurgitation with moderate pulmonary hypertension in the range of 40-50 mmHg. Although gradient is noted to be high, valve mobility tend to suggest that the narrowing is probably in the moderate to severe range and definitely not critical. Patient EKGs not showing any signs of LVH. Chest x-ray not showing any cardiomegaly. Patient however will benefit from further evaluation at a tertiary care center with heart catheterization and transesophageal echocardiogram. Recommend patient to be followed as an outpatient for aortic stenosis at a tertiary care center. There has been progression in aortic valve gradient, since last echocardiogram from approximately 2 years ago. (3) Diabetic foot ulcer Qualifiers: Diabetic foot ulcer location: heel Diabetes mellitus type: type 2 Is this a current diagnosis for this admission?: Yes Plan: This is being managed by the surgeon. (4) Hypertension Qualifiers: Hypertension type: essential hypertension Qualified Code(s): I10 - Essential (primary) hypertension Is this a current diagnosis for this admission?: Yes (5) Obesity Qualifiers: Obesity type: unspecified obesity type Is this a current diagnosis for this admission?: Yes Plan: Patient will benefit from aggressive weight loss. - Time Time with patient: Greater than 35 minutes - More than 50% of the time spent coordinating care, discussing management plans with involved caregivers. Management plans discussed with involved personnels. Medical decision making was of moderate to high complexity, patient's has multiple comorbidities. Discussed with Dr. Klein. If patient remains stable from cardiac standpoint overnight, can be discharged with close cardiology follow-up. Medications reviewed and adjusted accordingly: Yes
[2019-01-10] MEDS: CEFTRIAXONE 1 GM/D5W RTU 1 GM/50 ML RTUPB IV SCH (19:37)
--- NOTE | 2019-01-10 23:14 | XCELERA REPORT ---
[address] [address] Transthoracic Echocardiogram Report Name: GUIDO GARCIA Age: 68 yrs Gender: Female : 1950 Patient Status: [facility] Study Date: 01/10/2019 04:08 PM Height: 65 in Weight: 156 lb BSA: 1.8 m2 Procedure: A complete two-dimensional transthoracic echocardiogram was performed (2D, M-mode, spectral and color flow Doppler). The study was technically adequate with some images being suboptimal in quality. Reason For Study: aortic stenosis Ordering Physician: MILLICENT ESPINOZA Performed By: Lopez Ndiaye Interpretation Summary The left ventricular ejection fraction is normal. There is mild concentric left ventricular hypertrophy. The left ventricle is grossly normal size. Doppler measurements suggest pseudonormalized left ventricular relaxation, which is associated with grade II/IV or mild to moderate diastolic dysfunction No regional wall motion abnormalities noted. The right ventricular systolic function is normal. There is moderate to severe aortic stenosis There is a peak gradient of 70, mean gradient 40 mm of Hg. There is a trace amount of aortic regurgitation There is no mitral valve stenosis. There is a trace amount of mitral regurgitation There is a mild amount of tricuspid regurgitation There is mild to moderate pulmonary hypertension by echo Right ventricular systolic pressure is estimated to be elevated at 40-50mmHg. There is no pericardial effusion. MMode/2D Measurements & Calculations RVDd: 2.9 cm LVIDd: 3.5 cm FS: 37.2 % Ao root diam: 2.4 cm IVSd: 1.0 cm LVIDs: 2.2 cm EDV(Teich): 49.9 ml Ao root area: 4.6 cm2 LVPWd: 0.99 cm ESV(Teich): 15.8 ml LA dimension: 3.0 cm EF(Teich): 68.3 % LVOT diam: 1.9 cm LVOT area: 2.8 cm2 Doppler Measurements & Calculations MV E max cesilia: MV P1/2t max cesilia: Ao V2 max: LV V1 max P.0 cm/sec 115.1 cm/sec 418.7 cm/sec 3.5 mmHg MV A max cesilia: MV P1/2t: 63.8 msec Ao max PG: LV V1 mean P.6 cm/sec MVA(P1/2t): 3.4 cm2 70.1 mmHg 2.1 mmHg MV E/A: 0.79 MV dec slope: Ao V2 mean: LV V1 max: 296.4 cm/sec 93.3 cm/sec 528.3 cm/sec2 Ao mean PG: LV V1 mean: MV dec time: 0.18 sec 40.2 mmHg 67.4 cm/sec Ao V2 VTI: 93.9 cmLV V1 VTI: 20.4 cm BHARGAVI(I,D): 0.60 cm2 BHARGAVI(V,D): 0.62 cm2 SV(LVOT): 56.5 ml PA V2 max: TR max cesilia: MV P1/2t-pr_phl: 117.0 cm/sec 368.0 cm/sec 63.8 msec PA max P.5 mmHg TR max P.2 mmHg Left Ventricle The left ventricle is grossly normal size. There is mild concentric left ventricular hypertrophy. The left ventricular ejection fraction is normal. Doppler measurements suggest pseudonormalized left ventricular relaxation, which is associated with grade II/IV or mild to moderate diastolic dysfunction. No regional wall motion abnormalities noted. Right Ventricle The right ventricle is normal in size, thickness and function. There is normal right ventricular wall thickness. The right ventricular systolic function is normal. Atria The right atrium is normal. The left atrium is normal. Interarterial septum not well visualized and not well dopplered. Cannot comment on ASD/PFO presence. Mitral Valve The mitral valve is grossly normal. There is no mitral valve stenosis. There is a trace amount of mitral regurgitation. Aortic Valve The aortic valve is mildly calcified. There is moderate to severe aortic stenosis. There is a peak gradient of 70, mean gradient 40 mm of Hg. There is a trace amount of aortic regurgitation. Tricuspid Valve The tricuspid valve is not well visualized, but is grossly normal. There is no tricuspid stenosis. There is a mild amount of tricuspid regurgitation. There is mild to moderate pulmonary hypertension by echo. Right ventricular systolic pressure is estimated to be elevated at 40-50mmHg. Pulmonic Valve The pulmonic valve is not well visualized. Great Vessels The aortic root is not well visualized but is probably normal size. The inferior vena cava was not well visualized. Effusions There is no pericardial effusion. : MILLICENT ESPINOZA > Pippa Magana
[2019-01-11 08:37] LABS: ABSOLUTE BASOPHILS # (AUTO) 0.1 10^3/uL (0.0-0.2); ABSOLUTE EOSINOPHILS # (AUTO) 0.2 10^3/uL (0.0-0.6); ABSOLUTE MONOCYTES (AUTO) 0.7 10^3/uL (0.1-1.4); ABSOLUTE NEUT (AUTO) 5.8 10^3/uL (1.7-8.2); BASOPHILS % (AUTO) 1.1 % (0-2); EOSINOPHILS % (AUTO) 2.1 % (0-6); HEMATOCRIT 30.2 % (36.0-47.0); HEMOGLOBIN 10.2 g/dL (12.0-15.5); LYMPHOCYTES % (AUTO) 22.5 % (13-45); MEAN CORPUSCULAR HEMOGLOBIN 28.1 pg (27.0-33.4); MEAN CORPUSCULAR HGB CONC 33.6 g/dL (32.0-36.0); MEAN CORPUSCULAR VOLUME 84 fl (80-97); MONOCYTES % (AUTO) 7.8 % (3-13); PLATELET COUNT 302 10^3/uL (150-450); RED BLOOD COUNT 3.61 10^6/uL (3.72-5.28); RED CELL DISTRIBUTION WIDTH 14.9 % (11.5-14.0); SEGMENTED NEUTROPHILS % (AUTO) 66.5 % (42-78); TOTAL CELLS COUNTED % (AUTO) 100 %; WHITE BLOOD COUNT 8.8 10^3/uL (4.0-10.5)
[2019-01-11 08:54] LABS: ANION GAP 6 (5-19); BLOOD UREA NITROGEN 18 mg/dL (7-20); CALCIUM 9.4 mg/dL (8.4-10.2); CARBON DIOXIDE 23 mmol/L (22-30); CHLORIDE 111 mmol/L (98-107); GLUCOSE 98 mg/dL (75-110); SODIUM 139.9 mmol/L (137-145)
[2019-01-11] MEDS: INSULIN LISPRO 100 UNIT/ML 3 ML VIAL SUBCUT SCH ×4 (09:13→22:57)
[2019-01-11] MEDS: PANTOPRAZOLE SODIUM 40 MG VIAL IV SCH ×2 (10:52→22:57)
[2019-01-11] MEDS: ENOXAPARIN SODIUM INJ 30 MG/0.3 ML DISP.SYRIN SUBCUT SCH (10:53)
[2019-01-11] MEDS: FUROSEMIDE 20 MG TABLET PO SCH (10:53)
[2019-01-11] MEDS: FERROUS SULFATE 325 MG TABLET PO SCH (10:54)
[2019-01-11] MEDS: GLIMEPIRIDE 4 MG TABLET PO SCH (10:54)
[2019-01-11] MEDS: PIOGLITAZONE HCL 30 MG TABLET PO SCH (10:54)
[2019-01-11] MEDS: CLONIDINE HCL 0.1 MG TABLET PO SCH ×2 (11:01→17:52)
[2019-01-11] MEDS: METOPROLOL SUCCINATE 25 MG TAB.SR.24H PO SCH (11:02)
[2019-01-11] MEDS: AMLODIPINE BESYLATE 2.5 MG TABLET PO SCH (14:37)
[2019-01-11] MEDS: CEFTRIAXONE 1 GM/D5W RTU 1 GM/50 ML RTUPB IV SCH (17:54)
--- NOTE | 2019-01-11 18:23 | PDOC PROGRESS REPORT ---
Subjective Progress Note for:: 01/11/19 Subjective:: There is no new complaints Reason For Visit: NAUSEA,VOMITING Physical Exam Vital Signs: Temp Pulse Resp BP Pulse Ox 97.8 F 73 16 97/42 L 100 01/11/19 15:11 01/11/19 15:11 01/11/19 15:11 01/11/19 15:11 01/11/19 15:11 Intake & Output 01/10/19 01/11/19 01/12/19 06:59 06:59 06:59 Intake Total 2000 1638 532 Output Total 400 Balance 1600 1638 532 Weight 71.1 kg 69.4 kg General appearance: PRESENT: no acute distress Eye exam: PRESENT: PERRLA Respiratory exam: PRESENT: clear to auscultation aishwarya Cardiovascular exam: PRESENT: +S1, +S2 Results Laboratory Results: 01/11/19 08:21 01/11/19 08:21 01/11/19 01/11/19 08:21 08:21 WBC 8.8 RBC 3.61 L Hgb 10.2 L Hct 30.2 L MCV 84 MCH 28.1 MCHC 33.6 RDW 14.9 H Plt Count 302 Seg Neutrophils % 66.5 Lymphocytes % 22.5 Monocytes % 7.8 Eosinophils % 2.1 Basophils % 1.1 Absolute Neutrophils 5.8 Absolute Lymphocytes 2.0 Absolute Monocytes 0.7 Absolute Eosinophils 0.2 Absolute Basophils 0.1 Sodium 139.9 Potassium 4.0 Chloride 111 H Carbon Dioxide 23 Anion Gap 6 BUN 18 Creatinine 0.97 Est GFR ( Amer) > 60 Est GFR (Non-Af Amer) 57 L Glucose 98 Calcium 9.4 01/09/19 17:40 Catheterized Urine Urine Culture - Final Escherichia Coli 01/10/19 01/10/19 04:00 04:00 Creatine Kinase < 20 L Troponin I 0.014 NT-Pro-B Natriuret Pep 1790 H Impressions: Chest X-Ray 01/09/19 00:00 IMPRESSION: No acute cardiopulmonary process copyright 2011 [employer]- All Rights Reserved Abdomen/Pelvis CT 01/09/19 16:59 IMPRESSION: NO SIGNIFICANT OR ACUTE PROCESS IN THE ABDOMEN OR PELVIS. Abdomen Ultrasound 01/10/19 00:00 IMPRESSION: NORMAL ABDOMINAL ULTRASOUND. Assessment & Plan - Diagnosis (1) Gastroesophageal reflux disease Qualifiers: Esophagitis presence: with esophagitis Qualified Code(s): K21.0 - Gastro- esophageal reflux disease with esophagitis Is this a current diagnosis for this admission?: Yes (2) Diabetic foot ulcer Qualifiers: Diabetic foot ulcer location: heel Diabetes mellitus type: type 2 Is this a current diagnosis for this admission?: Yes (3) Urinary tract infection Qualifiers: Urinary tract infection type: site unspecified Is this a current diagnosis for this admission?: Yes (4) Stage 2 Pressure sore to Right heel Is this a current diagnosis for this admission?: Yes - Plan Summary Plan Summary: Continue treatment
[2019-01-11] MEDS: NORMAL SALINE 1000 ML 1,000 ML IV PRN (22:46)
[2019-01-12] MEDS: METOPROLOL SUCCINATE 25 MG TAB.SR.24H PO SCH ×3 (00:32→22:51)
[2019-01-12] MEDS: AMLODIPINE BESYLATE 2.5 MG TABLET PO SCH ×3 (00:32→22:51)
[2019-01-12 07:39] LABS: ABSOLUTE BASOPHILS # (AUTO) 0.1 10^3/uL (0.0-0.2); ABSOLUTE EOSINOPHILS # (AUTO) 0.2 10^3/uL (0.0-0.6); ABSOLUTE LYMPHOCYTES (AUTO) 1.4 10^3/uL (0.5-4.7); ABSOLUTE MONOCYTES (AUTO) 0.6 10^3/uL (0.1-1.4); ABSOLUTE NEUT (AUTO) 4.1 10^3/uL (1.7-8.2); EOSINOPHILS % (AUTO) 3.4 % (0-6); HEMATOCRIT 30.3 % (36.0-47.0); HEMOGLOBIN 10.1 g/dL (12.0-15.5); LYMPHOCYTES % (AUTO) 21.8 % (13-45); MEAN CORPUSCULAR HEMOGLOBIN 27.7 pg (27.0-33.4); MEAN CORPUSCULAR HGB CONC 33.5 g/dL (32.0-36.0); MEAN CORPUSCULAR VOLUME 83 fl (80-97); MONOCYTES % (AUTO) 9.1 % (3-13); PLATELET COUNT 296 10^3/uL (150-450); RED BLOOD COUNT 3.66 10^6/uL (3.72-5.28); RED CELL DISTRIBUTION WIDTH 14.7 % (11.5-14.0); SEGMENTED NEUTROPHILS % (AUTO) 64.7 % (42-78); TOTAL CELLS COUNTED % (AUTO) 100 %; WHITE BLOOD COUNT 6.4 10^3/uL (4.0-10.5)
[2019-01-12 07:48] LABS: ANION GAP 9 (5-19); BLOOD UREA NITROGEN 14 mg/dL (7-20); CALCIUM 8.8 mg/dL (8.4-10.2); CARBON DIOXIDE 23 mmol/L (22-30); CHLORIDE 110 mmol/L (98-107); GLUCOSE 87 mg/dL (75-110); POTASSIUM 3.5 mmol/L (3.6-5.0)
[2019-01-12] MEDS: INSULIN LISPRO 100 UNIT/ML 3 ML VIAL SUBCUT SCH ×4 (09:19→22:48)
[2019-01-12] MEDS: GLIMEPIRIDE 4 MG TABLET PO SCH (09:25)
[2019-01-12] MEDS: PANTOPRAZOLE SODIUM 40 MG VIAL IV SCH (09:25)
[2019-01-12] MEDS: FERROUS SULFATE 325 MG TABLET PO SCH (09:25)
[2019-01-12] MEDS: PIOGLITAZONE HCL 30 MG TABLET PO SCH (09:25)
[2019-01-12] MEDS: FUROSEMIDE 20 MG TABLET PO SCH (09:26)
[2019-01-12] MEDS: CLONIDINE HCL 0.1 MG TABLET PO SCH ×2 (09:26→17:52)
[2019-01-12] MEDS: ENOXAPARIN SODIUM INJ 30 MG/0.3 ML DISP.SYRIN SUBCUT SCH (09:35)
[2019-01-12] MEDS: CEFTRIAXONE 1 GM/D5W RTU 1 GM/50 ML RTUPB IV SCH (17:56)
[2019-01-12] MEDS: NORMAL SALINE 1000 ML 1,000 ML IV PRN (17:57)
[2019-01-13 03:32] LABS: ANION GAP 8 (5-19); BLOOD UREA NITROGEN 11 mg/dL (7-20); CALCIUM 8.6 mg/dL (8.4-10.2); CARBON DIOXIDE 23 mmol/L (22-30); CHLORIDE 110 mmol/L (98-107); GLUCOSE 91 mg/dL (75-110); POTASSIUM 3.6 mmol/L (3.6-5.0); SODIUM 140.7 mmol/L (137-145)
[2019-01-13] MEDS ORDERED: ONDANSETRON HCL INJ/PF 4 MG/2 ML SDV IV PRN (08:00)
--- NOTE | 2019-01-13 08:42 | PDOC DISCHARGE SUMMARY ---
General - Admit/Disc Date/PCP Admission Date/Primary Care Provider: 01/09/19 21:05 MILLICENT ESPINOZA MD Discharge Date: 01/13/19 - Discharge Diagnosis (1) Intractable vomiting Is this a current diagnosis for this admission?: Yes Summary: Currently all resolved (2) Acute renal failure Is this a current diagnosis for this admission?: Yes Summary: Currently all resolved We will currently hold the micardis HCTZ (3) Hyperkalemia Is this a current diagnosis for this admission?: Yes Summary: Currently all resolved (4) Gastroesophageal reflux disease Is this a current diagnosis for this admission?: Yes Summary: Status post endoscopy Continues to omeprazole (5) Aortic stenosis Is this a current diagnosis for this admission?: Yes Summary: Echocardiograms showing the increase the gradient as per discussed with the patient's cardiology follow outpatients may be needs to go to the [facility] for further surgical evaluations down the road (6) Congestive heart failure Is this a current diagnosis for this admission?: Yes Summary: Diastolic heart failure continues to Lasix (7) Diabetes Is this a current diagnosis for this admission?: Yes Summary: Continues the Actos and metformin Decrease the glimepiride 2 mg instead of 4 (8) Obesity Is this a current diagnosis for this admission?: Yes Summary: The patient about lose the weight (9) Diabetic foot ulcer Is this a current diagnosis for this admission?: Yes Summary: Per surgical evaluations no need for any surgical interventions (10) Urinary tract infection Is this a current diagnosis for this admission?: Yes Summary: Since received IV Rocephin discharged with the Keflex - Additional Information Resuscitation Status: Full Code Prescriptions: Amlodipine Besylate [Norvasc 2.5 mg Tablet] 2.5 mg PO Q12 #60 tablet Cephalexin Monohydrate [Keflex 500 mg Capsule] 500 mg PO BID #14 capsule Clonidine HCl [Catapres 0.1 mg Tablet] 0.1 mg PO BID #60 tablet Furosemide [Lasix 20 mg Tablet] 20 mg PO DAILY #30 tablet Omeprazole 40 mg PO DAILY #30 capsule. Home Medications: Clonidine HCl [Catapres 0.1 mg Tablet] 0.1 mg PO BID 01/09/19 Cyanocobalamin/Cobamamide [Vitamin B-12 5,000 Mcg Tab Sl] 5,000 mcg SL DAILY 01/09/19 Ferrous Sulfate [Feosol 325 mg Tablet] 325 mg PO DAILY 01/09/19 Metformin HCl [Metformin HCl ER] 500 mg PO BID 01/09/19 Amlodipine Besylate [Norvasc 2.5 mg Tablet] 2.5 mg PO Q12 #60 tablet 01/13/19 Cephalexin Monohydrate [Keflex 500 mg Capsule] 500 mg PO BID #14 capsule 01/13/19 Clonidine HCl [Catapres 0.1 mg Tablet] 0.1 mg PO BID #60 tablet 01/13/19 Furosemide [Lasix 20 mg Tablet] 20 mg PO DAILY #30 tablet 01/13/19 Glimepiride [Amaryl 4 mg Tablet] 4 mg PO DAILY #30 01/13/19 Metoprolol Succinate [Toprol Xl 25 mg Tab.sr] 12.5 mg PO Q12 #60 01/13/19 Omeprazole 40 mg PO DAILY #30 capsule. 01/13/19 Pioglitazone HCl [Actos] 30 mg PO DAILY #30 01/13/19 History of Present Illness History of Present Illness: GUIDO GARCIA is a 68 year old female This is a 68-year-old female with a history of the type 2 diabetes uncontrolled due to noncompliance not follow the office with a history of the hypertension's hyperlipidemia history of the peripheral vascular disease morbid obesity and history of aortic stenosis and congestive heart failure with diastolic dysfunctions again not follow cardiology as supposed to bring to the emergency department with the persistent nausea and vomiting for several days and according to the patient she is unable to eat for us month In the emergency department patient was dehydrated in mild renal failure Patient also have a recently had diarrhea episodes currently better Patient's denied any abdominal pain but patient is complaining of her severe acid reflux and gastritis Patient's denied any chest pain to than any shortness of the breath No fever no chills In the emergency department CT abdomen and pelvis without contrast negative for any acute findings Patient had a questionable UTI put on IV Rocephin Patient does not speak any Jordanian Discussed with the patient's today's still having some nausea vomiting and according to the patient this is been going on for almost a month Patient's appetite is poor Discussed with the patient's daughter and patient usually unable to walk due to the morbid obesity's and arthritis and a joint problems Hospital Course Hospital Course: 68-year-old female with the multiple medical problems as above very noncomplian ce not follow the outpatients physicians due to the lack of insurance and lack of others help and morbid obesity came to the emergency department because of the persistent nausea vomiting for a month and unable to eat it Patient at this point also found the renal failure hyperkalemia decided to admit in the hospital Patient's giving IV fluid and also underwent for endoscopy per GI and a CT scan of the abdomen and pelvis did not see a significant finding except mild gastritis Patient was giving omeprazole In the hospital patient does not have any nausea vomiting no diarrhea Patient responds very well Patient also underwent for the echocardiogram due to the history of the aortic stenosis and a heart failure and seen by the cardiology while patient unable to follow in the outpatient The echocardiogram suggest the increase in the gradient of the aortic wall and suggest patient is to close monitor and follow regularly Discussed with the daughter very extensively regarding the patient's current conditions close needs to be follow with all physicians including the cardiology GI Patient also need a physical therapy Patient is otherwise remained stable in the hospitals Patient's p.o. intake is fair Unfortunately patient unable to eat the hospital food due to the cultural issues patient unable to speak Jordanian very well Very extensively discussed with the patient's myself and also family regarding the patient's current condition and need to continue swallowing take the medicines Patient's glimepiride reduced to 2 mg to prevent hypoglycemia Patients unfortunately cannot afford the medications and getting the medicines from the [facility] insurance and financial services agent consulted in the hospital for the patient's need Physical Exam Vital Signs: Temp Pulse Resp BP Pulse Ox 97.8 F 79 18 114/52 L 100 01/13/19 00:55 01/13/19 00:55 01/13/19 00:55 01/13/19 00:55 01/13/19 00:55 Intake & Output 01/12/19 01/13/19 01/14/19 06:59 06:59 06:59 Intake Total 1582 2391 Balance 1582 2391 Weight 69.5 kg 70 kg General appearance: PRESENT: no acute distress, well-developed, well-nourished Head exam: PRESENT: atraumatic, normocephalic Eye exam: PRESENT: conjunctiva pink, EOMI, PERRLA. ABSENT: scleral icterus Ear exam: PRESENT: normal external ear exam Mouth exam: PRESENT: moist, tongue midline Neck exam: PRESENT: full ROM. ABSENT: carotid bruit, JVD, lymphadenopathy, thyromegaly Respiratory exam: PRESENT: clear to auscultation aishwarya Cardiovascular exam: PRESENT: RRR. ABSENT: diastolic murmur, rubs, systolic murmur Vascular exam: PRESENT: normal capillary refill GI/Abdominal exam: PRESENT: normal bowel sounds, soft. ABSENT: distended, guarding, mass, organolmegaly, rebound, tenderness Rectal exam: PRESENT: deferred Extremities exam: ABSENT: pedal edema Musculoskeletal exam: PRESENT: ambulatory Neurological exam: PRESENT: alert, awake, oriented to person, oriented to place, oriented to time, oriented to situation, CN II-XII grossly intact. ABSENT: motor sensory deficit Psychiatric exam: PRESENT: appropriate affect, normal mood. ABSENT: homicidal ideation, suicidal ideation Skin exam: PRESENT: dry, intact, warm. ABSENT: cyanosis, rash Results Laboratory Results: 01/12/19 06:54 01/13/19 02:59 01/13/19 02:59 Sodium 140.7 Potassium 3.6 Chloride 110 H Carbon Dioxide 23 Anion Gap 8 BUN 11 Creatinine 0.93 Est GFR ( Amer) > 60 Est GFR (Non-Af Amer) > 60 Glucose 91 Calcium 8.6 01/10/19 01/10/19 04:00 04:00 Creatine Kinase < 20 L Troponin I 0.014 NT-Pro-B Natriuret Pep 1790 H Impressions: Chest X-Ray 01/09/19 00:00 IMPRESSION: No acute cardiopulmonary process copyright 2011 [employer]- All Rights Reserved Abdomen/Pelvis CT 01/09/19 16:59 IMPRESSION: NO SIGNIFICANT OR ACUTE PROCESS IN THE ABDOMEN OR PELVIS. Abdomen Ultrasound 01/10/19 00:00 IMPRESSION: NORMAL ABDOMINAL ULTRASOUND. Qualifiers - * PATIENT BEING DISCHARGED WITH ANY OF THE FOLLOWING DIAGNOSIS: No VTE patient discharged on overlapping Therapy?: Yes Plan Time Spent: Greater than 30 Minutes - Follow with the cardiology in 1 week Fol low in office in 1 week Physical therapy as outpatient
[2019-01-13] MEDS: INSULIN LISPRO 100 UNIT/ML 3 ML VIAL SUBCUT SCH (08:45)
[2019-01-13] MEDS: FUROSEMIDE 20 MG TABLET PO SCH (10:08)
[2019-01-13] MEDS: PIOGLITAZONE HCL 30 MG TABLET PO SCH (10:08)
[2019-01-13] MEDS: METOPROLOL SUCCINATE 25 MG TAB.SR.24H PO SCH (10:09)
[2019-01-13] MEDS: FERROUS SULFATE 325 MG TABLET PO SCH (10:09)
[2019-01-13] MEDS: GLIMEPIRIDE 4 MG TABLET PO SCH (10:09)
[2019-01-13] MEDS: CLONIDINE HCL 0.1 MG TABLET PO SCH (10:09)
[2019-01-13] MEDS: AMLODIPINE BESYLATE 2.5 MG TABLET PO SCH (10:10)
[2019-01-13 15:29] VITALS: BP 123/70
== END 2019-01-13 16:41 | disposition home or self-care (01) | DRG 103 ==
LOC: ER 13:35 → EH 21:05 → 5 23:43
PROVIDERS: ADMIT Family Medicine; ATTEND Family Medicine
PROC: 0DB78ZX Excision of Stomach, Pylorus, Via Natural or Artificial Opening Endoscopic, Diagnostic (ICD-10-PCS; principal; 2019-01-10 12:00)
PROC: 3E0G8GC Introduction of Other Therapeutic Substance into Upper GI, Via Natural or Artificial Opening Endoscopic (ICD-10-PCS; 2019-01-10 12:00)
PROC: 3E02340 Introduction of Influenza Vaccine into Muscle, Percutaneous Approach (ICD-10-PCS; 2019-01-13)
DX: G43.A1 Cyclical vomiting, in migraine, intractable (principal); N17.9 Acute kidney failure, unspecified; N39.0 Urinary tract infection, site not specified; I13.0 Hypertensive heart and chronic kidney disease with heart failure and stage 1 through stage 4 chronic kidney disease, or unspecified chronic kidney disease; I50.32 Chronic diastolic (congestive) heart failure; B96.20 Unspecified Escherichia coli [E. coli] as the cause of diseases classified elsewhere; E87.5 Hyperkalemia; I35.0 Nonrheumatic aortic (valve) stenosis; E11.621 Type 2 diabetes mellitus with foot ulcer; E11.65 Type 2 diabetes mellitus with hyperglycemia; E11.51 Type 2 diabetes mellitus with diabetic peripheral angiopathy without gangrene; E66.01 Morbid (severe) obesity due to excess calories; E86.0 Dehydration; E11.22 Type 2 diabetes mellitus with diabetic chronic kidney disease; N18.9 Chronic kidney disease, unspecified; K21.0 Gastro-esophageal reflux disease with esophagitis; L89.612 Pressure ulcer of right heel, stage 2; Z23 Encounter for immunization; Z79.84 Long term (current) use of oral hypoglycemic drugs; Z79.899 Other long term (current) drug therapy; Z91.19 Patient's noncompliance with other medical treatment and regimen
CPT/HCPCS: 36415; 43236; 43239; 71046; 74176; 76700; 80048; 80053; 81001; 82550; 82803; 82962; 83690; 83735; 83880; 83930; 84484; 85025; 85610; 85730; 87040; 87086; 87088; 87186; 88305; 90471; 90686; 93005; 93010; 93306; 96361; 96365; 96375; 99285; G0008; J0171; J0696; J1200; J1610; J1650; J1815; J2250; J2310; J2405; J2550; J2765; J3010; J3490; J7030; S0028; S0164

== ENCOUNTER 2019-01-25 23:42 | Inpatient (IN) | payer SELFPAY ==
[2019-01-26] MEDS ORDERED: NORMAL SALINE 1000 ML 500 ML IV ONE ×2 (00:01→01:39)
--- NOTE | 2019-01-26 00:05 | ER Document Report ---
ED General - General Chief Complaint: Altered Mental Status Stated Complaint: ALTERED Time Seen by Provider: 01/25/19 23:50 Primary Care Provider: MILLICENT ESPINOZA MD [Primary Care Provider] - Follow up as needed Cannot obtain history due to: Altered mental status Notes: Patient is a 68-year-old female with a past medical history of diabetes with recurrent episodes of hypoglycemia, morbid obesity, hypertension, recent hospitalization for UTI and hypoglycemia who presents by EMS due to concerns of altered mental status. Patient speaks a regional dialect of [place], Martti numerical analysis group manager was used although the patient reported that she did not know why she was here, had no idea what was going on and could not provide any meaningful history. Per EMS the daughter had contacted 911 and because the patient had been lying in bed all day, has not ate or drank anything all day and was acting very lethargic. EMS reports that the initial blood sugar was 34. Patient did have some more general alertness after receiving dextrose by EMS. Patient was recently hospitalized in December for the same. Has not seen her primary doctor regarding today's concerns. History otherwise limited secondary to patient's mental status TRAVEL OUTSIDE OF THE [place] IN LAST 30 DAYS: No COUNTRY TRAVELED TO/FROM: [place] - Related Data Allergies/Adverse Reactions: No Known Allergies Allergy (Verified 05/14/16 04:21) Past Medical History - General Information source: Patient, Emergency Med Personnel, [facility] Records Cannot obtain history due to: Altered mental status - Social History Smoking Status: Never Smoker Frequency of alcohol use: None Drug Abuse: None Lives with: Family Family History: Reviewed & Not Pertinent - Past Medical History Cardiac Medical History: Reports: Hx Congestive Heart Failure, Hx Hypertension, Hx Heart Murmur Denies: Hx Heart Attack Pulmonary Medical History: Denies: Hx Asthma, Hx Bronchitis, Hx COPD, Hx Pneumonia, Hx Tuberculosis Neurological Medical History: Denies: Hx Seizures Endocrine Medical History: Reports: Hx Diabetes Mellitus Type 2 Renal/ Medical History: Denies: Hx End Stage Renal Disease, Hx Kidney Stones, Hx Peritoneal Dialysis GI Medical History: Reports: Hx Gastroesophageal Reflux Disease - Yes 3 I was looking just cut down to the anal is running is running 110 1. Denies: Hx Cirrhosis, Hx Ulcer Musculoskeletal Medical History: Denies Hx Arthritis, Denies Hx Multiple Sclerosis Psychiatric Medical History: Denies: Hx Bipolar Disorder, Hx Depression, Hx Schizophrenia - Immunizations Hx Pneumococcal Vaccination: 10/22/15 Review of Systems - Review of Systems -: Yes ROS unobtainable due to patient's medical condition Physical Exam - Vital signs Vitals: Resp Pulse Ox 16 99 01/25/19 23:55 01/25/19 23:55 Interpretation: Normal Notes: PHYSICAL EXAMINATION: GENERAL: Appears somewhat ill, listless but in no acute distress HEAD: Atraumatic, normocephalic. EYES: Pupils equal round and reactive to light, extraocular movements intact, sclera anicteric, conjunctiva are normal. ENT: nares patent, oropharynx clear without exudates. Try mucous membranes. NECK: Normal range of motion, supple without lymphadenopathy LUNGS: Breath sounds clear to auscultation bilaterally and equal. No wheezes rales or rhonchi. HEART: Regular rate and rhythm, harsh 4 out of 6 systolic ejection murmur ABDOMEN: Soft, nontender, normoactive bowel sounds. No guarding, no rebound. No masses appreciated. EXTREMITIES: Normal range of motion, no pitting or edema. No cyanosis. NEUROLOGICAL: No focal neurological deficits. Moves all extremities spontaneously and on command. PSYCH: Listless SKIN: Warm, Dry, normal turgor, no rashes or lesions noted. Course - Re-evaluation Re-evalutation: 01/26/19 00:03 Patient presents by EMS due to nausea, refusing to eat or drink anything all day and altered mental status. The daughter apparently told EMS that the patient had been quite lethargic throughout the day today, had not taking any oral intake in. EMS was contacted, patient's BGL found to be 34. Patient was subsequently transported to the emergency department and received dextrose in route with some improvement in her mentation. The patient does not speak any Amharic. [employer] numerical analysis group manager used for regional dialect. Through numerical analysis group manager patient reported that she did not know why she was here in the emergency department and did not have any immediate complaints. Will obtain labs, catheterized urine specimen, chest x-ray, give a small bolus of fluid as patient does have mild hypotension to systolic of 102 with a history of hypertension. 01/26/19 01:16 Patient's blood sugar has again deteriorated down to the 40s. Will give an amp of dextrose. Patient will require hospitalization given recurrent hypoglycemia. Urinalysis pending. 01/26/19 01:40 Urinalysis demonstrates findings consistent with pyelonephritis. Culture has been sent. IV subtraction has been initiated. Patient will be encouraged to take p.o. intake. Will discuss with Dr. Krishnamurthy who is covering for Dr. Espinoza for admission. 01/26/19 01:47 Dr. Finley has accepted the patient to telemetry unit - Vital Signs Vital signs: Temp Pulse Resp BP Pulse Ox 97.6 F 78 16 93/52 L 98 01/26/19 00:00 01/26/19 00:00 01/26/19 00:01 01/26/19 00:01 01/26/19 00:01 - Laboratory Result Diagrams: 01/25/19 23:55 01/25/19 23:55 Laboratory results interpreted by me: 01/25/19 01/25/19 01/26/19 23:55 23:55 00:30 RBC 3.54 L Hgb 9.9 L Hct 29.2 L RDW 14.4 H Sodium 133.9 L BUN 24 H Est GFR ( Amer) 57 L Est GFR (Non-Af Amer) 47 L POC Glucose Albumin 3.4 L Urine Blood SMALL H Ur Leukocyte Esterase LARGE H 01/26/19 01:12 RBC Hgb Hct RDW Sodium BUN Est GFR ( Amer) Est GFR (Non-Af Amer) POC Glucose 41 L Albumin Urine Blood Ur Leukocyte Esterase - Diagnostic Test Radiology reviewed: Image reviewed, Reports reviewed Radiology results interpreted by me: 01/26/19 01:16 Chest x-ray: No acute infiltrate or pneumothorax - EKG Interpretation by Me Additional EKG results interpreted by me: 01/26/19 01:17 Sinus rhythm, rate 82. No ST elevations or depressions. QTC 458. Discharge - Discharge Clinical Impression: Pyelonephritis, Dehydration, Hypoglycemia Condition: Fair Disposition: ADMITTED INPATIENT Admitting Provider: Rag[facility] Unit Admitted: Telemetry Referrals: MILLICENT ESPINOZA MD [Primary Care Provider] - Follow up as needed
[2019-01-26 00:15] LABS: ABSOLUTE BASOPHILS # (AUTO) 0.1 10^3/uL (0.0-0.2); ABSOLUTE EOSINOPHILS # (AUTO) 0.1 10^3/uL (0.0-0.6); ABSOLUTE LYMPHOCYTES (AUTO) 1.3 10^3/uL (0.5-4.7); ABSOLUTE MONOCYTES (AUTO) 0.6 10^3/uL (0.1-1.4); ABSOLUTE NEUT (AUTO) 6.7 10^3/uL (1.7-8.2); BASOPHILS % (AUTO) 0.6 % (0-2); EOSINOPHILS % (AUTO) 0.8 % (0-6); HEMATOCRIT 29.2 % (36.0-47.0); HEMOGLOBIN 9.9 g/dL (12.0-15.5); LYMPHOCYTES % (AUTO) 15.3 % (13-45); MEAN CORPUSCULAR HGB CONC 33.9 g/dL (32.0-36.0); MEAN CORPUSCULAR VOLUME 83 fl (80-97); MONOCYTES % (AUTO) 6.3 % (3-13); PLATELET COUNT 313 10^3/uL (150-450); RED BLOOD COUNT 3.54 10^6/uL (3.72-5.28); RED CELL DISTRIBUTION WIDTH 14.4 % (11.5-14.0); TOTAL CELLS COUNTED % (AUTO) 100 %; WHITE BLOOD COUNT 8.7 10^3/uL (4.0-10.5)
[2019-01-26 00:25] LABS: ALANINE AMINOTRANSFERASE 14 U/L (9-52); ALBUMIN 3.4 g/dL (3.5-5.0); ALKALINE PHOSPHATASE 54 U/L (38-126); ANION GAP 8 (5-19); ASPARTATE AMINO TRANSFERASE 23 U/L (14-36); BILIRUBIN,DIRECT 0.4 mg/dL (0.0-0.4); BILIRUBIN,TOTAL 0.4 mg/dL (0.2-1.3); BLOOD UREA NITROGEN 24 mg/dL (7-20); CALCIUM 8.6 mg/dL (8.4-10.2); CARBON DIOXIDE 26 mmol/L (22-30); CHLORIDE 100 mmol/L (98-107); GLUCOSE 78 mg/dL (75-110); POTASSIUM 3.7 mmol/L (3.6-5.0); SODIUM 133.9 mmol/L (137-145); TOTAL PROTEIN 6.8 g/dL (6.3-8.2)
[2019-01-26 01:08] LABS: APPEARANCE,URINE TURBID; BILIRUBIN,URINE NEGATIVE (NEGATIVE); COLOR,URINE YELLOW; GLUCOSE, URINE NEGATIVE (NEGATIVE); KETONES,URINE NEGATIVE (NEGATIVE); LEUKOCYTE ESTERASE,URINE LARGE (NEGATIVE); NITRITE,URINE NEGATIVE (NEGATIVE); PROTEIN,URINE NEGATIVE (NEGATIVE); URINE SPECIFIC GRAVITY 1.013; UROBILINOGEN,URINE NEGATIVE mg/dL (<2.0)
[2019-01-26] MEDS ORDERED: DEXTROSE 50%-WATER 25 GM/50 ML DISP.SYRIN IV ONE ×2 (01:13→01:14)
[2019-01-26] MEDS ORDERED: CEFTRIAXONE INJ 1000 MG VIAL IV ONE (01:38)
--- NOTE | 2019-01-26 01:48 | RADIOLOGY REPORT (SQ) ---
EXAM DESCRIPTION: [facility]: XR CHEST 1 VIEW CLINICAL HISTORY: 68 years Female, ams COMPARISON: 11/29/2018 FINDINGS: Mild central vascular congestion is similar to the prior exam. There is no focal acute infiltrate. No pneumothorax or pleural effusion. Heart appears slightly enlarged, although this may be exaggerated by AP positioning. No mediastinal widening or shift. Bony structures are unremarkable. IMPRESSION: Mild pulmonary vascular congestion, but no acute infiltrates.
[2019-01-26] MEDS ORDERED: DEXTROSE 40% GEL 15 GM TUBE X 2 PO PRN (07:00)
[2019-01-26] MEDS ORDERED: DEXTROSE 50%-WATER SYRINGE 25 GM/50 ML DOSE IV PRN (07:00)
[2019-01-26] MEDS ORDERED: DEXTROSE 50%-WATER SYRINGE 12.5 GM/25 ML DOSE IV PRN (07:00)
[2019-01-26] MEDS ORDERED: GLUCAGON,HUMAN RECOMB 1 MG INJ IM PRN (07:00)
[2019-01-26] MEDS ORDERED: DEXTROSE 40% GEL 15 GM TUBE PO PRN (07:00)
[2019-01-26] MEDS: INSULIN LISPRO 100 UNIT/ML 3 ML VIAL SUBCUT SCH ×4 (08:30→21:50)
[2019-01-26] MEDS: NORMAL SALINE 1000 ML 1,000 ML IV PRN ×2 (09:02→20:56)
[2019-01-26] MEDS: CIPROFLOXACIN 400 MG/D5W RTU 400 MG/200 ML RTUPB IV SCH ×2 (09:07→21:47)
--- NOTE | 2019-01-26 09:55 | EKG REPORT ---
SEVERITY:- BORDERLINE ECG - SINUS RHYTHM BORDERLINE LEFT AXIS DEVIATION BORDERLINE R WAVE PROGRESSION, ANTERIOR LEADS CONSIDER OLD ANTERIOR DC : Confirmed by: Abhinav Quiroz MD 26-Jan-2019 09:54:50
[2019-01-26] MEDS ORDERED: ONDANSETRON HCL INJ/PF 4 MG/2 ML SDV ONE (11:30)
--- NOTE | 2019-01-26 19:51 | PDOC H&P ---
History of Present Illness Admission Date/PCP: 01/26/19 02:26 MILLICENT ESPINOZA MD History of Present Illness: GUIDO GARCIA is a 68 year old female, History taking was impossible, she does not speak [place], she was transferred to the emergency room for evaluation of altered mental status. There is no family in the room to give me any history,I basically rely on the emergency room physician note. The history was that she was transferred to the emergency room for evaluation of altered mental status, it seems that she had hypoglycemia the POC Accu-Chek was 34. Past Medical History Cardiac Medical History: Reports: Congestive Heart Failure, Hypertension, Heart Murmur Endocrine Medical History: Reports: Diabetes Mellitus Type 2 GI Medical History: Reports: Gastroesophageal Reflux Disease - Yes 3 I was looking just cut down to the anal is running is running 110 1 Social History Lives with: Family Smoking Status: Never Smoker Frequency of Alcohol Use: None Hx Recreational Drug Use: No Drugs: None Hx Prescription Drug Abuse: No Family History Family History: Reviewed & Not Pertinent Parental Family History Reviewed: Yes Children Family History Reviewed: Yes Sibling(s) Family History Reviewed.: Yes Medication/Allergy Home Medications: Cyanocobalamin/Cobamamide [Vitamin B-12 5,000 Mcg Tab Sl] 5,000 mcg SL DAILY 01/09/19 Ferrous Sulfate [Feosol 325 mg Tablet] 325 mg PO DAILY 01/09/19 Metformin HCl [Metformin HCl ER] 500 mg PO BID 01/09/19 Furosemide [Lasix 20 mg Tablet] 20 mg PO DAILY #30 tablet 01/13/19 Glimepiride [Amaryl 4 mg Tablet] 4 mg PO DAILY #30 01/13/19 Metoprolol Succinate [Toprol Xl 25 mg Tab.sr] 12.5 mg PO Q12 #60 01/13/19 Omeprazole 40 mg PO DAILY #30 capsule. 01/13/19 Pioglitazone HCl [Actos] 30 mg PO DAILY #30 01/13/19 Allergies/Adverse Reactions: No Known Allergies Allergy (Verified 05/14/16 04:21) Review of Systems ROS unobtainable: Other - She does not speak [place]er Physical Exam Vital Signs: Temp Pulse Resp BP Pulse Ox 97.3 F 97 16 162/67 H 100 01/26/19 16:32 01/26/19 16:32 01/26/19 16:32 01/26/19 16:32 01/26/19 16:32 Intake & Output 01/25/19 01/26/19 01/27/19 06:59 06:59 06:59 Intake Total 560 250 Balance 560 250 Weight 71.4 kg 71.4 kg General appearance: PRESENT: no acute distress Head exam: PRESENT: atraumatic, normocephalic Eye exam: PRESENT: PERRLA Neck exam: PRESENT: full ROM Respiratory exam: PRESENT: clear to auscultation aishwarya Cardiovascular exam: PRESENT: +S1, +S2, systolic murmur Vascular exam: PRESENT: normal capillary refill GI/Abdominal exam: PRESENT: normal bowel sounds, soft Rectal exam: PRESENT: deferred Neurological exam: PRESENT: alert, CN II-XII grossly intact Psychiatric exam: PRESENT: appropriate affect, normal mood Skin exam: PRESENT: dry, intact, warm. ABSENT: cyanosis, rash Results Laboratory Results: 01/25/19 23:55 01/25/19 23:55 01/25/19 01/25/19 01/26/19 23:55 23:55 00:30 WBC 8.7 RBC 3.54 L Hgb 9.9 L Hct 29.2 L MCV 83 MCH 28.0 MCHC 33.9 RDW 14.4 H Plt Count 313 Seg Neutrophils % 77.0 Lymphocytes % 15.3 Monocytes % 6.3 Eosinophils % 0.8 Basophils % 0.6 Absolute Neutrophils 6.7 Absolute Lymphocytes 1.3 Absolute Monocytes 0.6 Absolute Eosinophils 0.1 Absolute Basophils 0.1 Sodium 133.9 L Potassium 3.7 Chloride 100 Carbon Dioxide 26 Anion Gap 8 BUN 24 H Creatinine 1.16 Est GFR ( Amer) 57 L Est GFR (Non-Af Amer) 47 L Glucose 78 Calcium 8.6 Total Bilirubin 0.4 AST 23 ALT 14 Alkaline Phosphatase 54 Total Protein 6.8 Albumin 3.4 L Urine Color YELLOW Urine Appearance TURBID Urine pH 5.0 Ur Specific [place] 1.013 Urine Protein NEGATIVE Urine Glucose (UA) NEGATIVE Urine Ketones NEGATIVE Urine Blood SMALL H Urine Nitrite NEGATIVE Ur Leukocyte Esterase LARGE H Urine WBC (Auto) >182 Urine RBC (Auto) 22 01/25/19 23:55 Troponin I < 0.012 Impressions: Chest X-Ray 01/26/19 00:03 IMPRESSION: Mild pulmonary vascular congestion, but no acute infiltrates. Assessment & Plan - Diagnosis (1) Hypoglycemia Is this a current diagnosis for this admission?: Yes Plan: Patient is admitted for management
[2019-01-26] MEDS: ONDANSETRON HCL INJ/PF 4 MG/2 ML SDV IV PRN ×2 (20:18→23:53)
[2019-01-26] MEDS: METOPROLOL SUCCINATE 25 MG TAB.SR.24H PO SCH (21:45)
[2019-01-27] MEDS: ONDANSETRON HCL INJ/PF 4 MG/2 ML SDV IV PRN ×4 (03:25→19:30)
[2019-01-27] MEDS: INSULIN LISPRO 100 UNIT/ML 3 ML VIAL SUBCUT SCH ×4 (08:59→23:24)
[2019-01-27] MEDS: METOPROLOL SUCCINATE 25 MG TAB.SR.24H PO SCH ×2 (09:16→23:24)
[2019-01-27] MEDS: PANTOPRAZOLE SODIUM 40 MG TABLET.DR PO SCH ×2 (09:17→18:46)
[2019-01-27] MEDS: POLYETHYLENE GLYCOL 3350 POWDER 17 GM/1 PACKET PO SCH (09:17)
[2019-01-27] MEDS: CYANOCOBALAMIN (VITAMIN B-12) 1,000 MCG TABLET PO SCH (09:17)
[2019-01-27] MEDS: CIPROFLOXACIN 400 MG/D5W RTU 400 MG/200 ML RTUPB IV SCH ×2 (09:17→23:24)
[2019-01-27] MEDS: PIOGLITAZONE HCL 30 MG TABLET PO SCH (09:20)
[2019-01-27] MEDS ORDERED: PANTOPRAZOLE SODIUM 40 MG TABLET.DR PO SCH (10:00)
[2019-01-27] MEDS ORDERED: FERROUS SULFATE 325 MG TABLET PO SCH (10:00)
--- NOTE | 2019-01-27 10:37 | RADIOLOGY REPORT (SQ) ---
EXAM DESCRIPTION: [place] SWALLOW COMPLETED DATE/TIME: 01/27/2019 10:08 am REASON FOR STUDY: possible obstruction COMPARISON: None. TECHNIQUE: Videofluoroscopic swallowing examination was performed in conjunction with speech patholo gy. Videofluoroscopic imaging was obtained and reviewed and these are the findings: RADIATION DOSE: Fluoro time 1.3 minutes 1 images saved to PACS. LIMITATIONS: None FINDINGS: The patient was brought into the fluoro room and placed upright on a modified barium swall ow chair. The patient was then given multiple consistencies mixed with barium to swallow under live fluoroscopic video guidance. According to the Speech Pathologist there was flash penetration penetra tion with thin barium. No aspiration identified. All other consistencies swallowed without incident . Please refer to the speech pathology report for further details. IMPRESSION: FLASH LARYNGEAL PENETRATION WITHOUT ASPIRATION SEEN WITH THIN BARIUM. PLEASE SEE SPEECH PATHOLOGIST REPORT FOR OTHER FINDINGS AND RECOMMENDATIONS. COMMENT: None Quality ID [id number]: Final reports for procedures using fluoroscopy that document radiation exposure kirby ladarius, or exposure time and number of fluorographic images (if radiation exposure indices are not avail able) TECHNICAL DOCUMENTATION: JOB ID: [id number] [employer]- All Rights Reserved Reading location - IP/workstation name: [email or web address]
--- NOTE | 2019-01-27 12:59 | PDOC PROGRESS REPORT ---
Subjective Progress Note for:: 01/27/19 Subjective:: Patient was admitted because of the hypoglycemia was sugar was 34 Patient was taking the glimepiride 4 mg I believe that causing the hypoglycemia with patient is not eating very well Patient admitted recently in the hospital because of the same problems with the patient had endoscopy was done with nothing acute finding Patient was put on omeprazole 40 mg p.o. daily Patient still complaining of not able to eat much Patient also have aortic stenosis seen by the cardiology Patient and the family is noncompliance to bring the patient in the office and to not follow outpatient anything Reason For Visit: HYPOGLYCEMICA Physical Exam Vital Signs: Temp Pulse Resp BP Pulse Ox 97.9 F 85 16 147/61 H 100 01/27/19 07:36 01/27/19 07:36 01/27/19 07:36 01/27/19 07:36 01/27/19 07:36 Intake & Output 01/26/19 01/27/19 01/28/19 06:59 06:59 06:59 Intake Total 560 1680 1200 Output Total 200 Balance 560 1480 1200 Weight 71.4 kg 72.3 kg General appearance: PRESENT: no acute distress, well-developed, well-nourished Head exam: PRESENT: atraumatic, normocephalic Eye exam: PRESENT: conjunctiva pink, EOMI, PERRLA. ABSENT: scleral icterus Ear exam: PRESENT: normal external ear exam Mouth exam: PRESENT: moist, tongue midline Neck exam: PRESENT: full ROM. ABSENT: carotid bruit, JVD, lymphadenopathy, thyromegaly Respiratory exam: PRESENT: clear to auscultation aishwarya Cardiovascular exam: PRESENT: RRR. ABSENT: diastolic murmur, rubs, systolic murmur Vascular exam: PRESENT: normal capillary refill GI/Abdominal exam: PRESENT: normal bowel sounds, soft. ABSENT: distended, guarding, mass, organolmegaly, rebound, tenderness Rectal exam: PRESENT: deferred Extremities exam: ABSENT: pedal edema Musculoskeletal exam: PRESENT: ambulatory Neurological exam: PRESENT: alert, awake, oriented to person, oriented to place, oriented to time, oriented to situation, CN II-XII grossly intact. ABSENT: motor sensory deficit Psychiatric exam: PRESENT: appropriate affect, normal mood. ABSENT: homicidal ideation, suicidal ideation Skin exam: PRESENT: dry, intact, warm. ABSENT: cyanosis, rash Results Laboratory Results: 01/25/19 23:55 01/25/19 23:55 01/25/19 23:55 Troponin I < 0.012 Impressions: Chest X-Ray 01/26/19 00:03 IMPRESSION: Mild pulmonary vascular congestion, but no acute infiltrates. Modified Barium Swallow 01/27/19 00:00 IMPRESSION: FLASH LARYNGEAL PENETRATION WITHOUT ASPIRATION SEEN WITH THIN BARIUM. PLEASE SEE SPEECH PATHOLOGIST REPORT FOR OTHER FINDINGS AND RECOMMENDATIONS. Assessment & Plan - Diagnosis (1) Hypoglycemia Is this a current diagnosis for this admission?: Yes Plan: Most likely due to unable to eat much improved glimepiride We will discontinue's the glimepiride Continues the Actos Will be consider the Januvia 50 mg Again patient is a noncompliance to able to take the medicines and follow (2) Aortic stenosis Qualifiers: Cardiac valve disease etiology: nonrheumatic Qualified Code(s): I35.0 - Nonrheumatic aortic (valve) stenosis Is this a current diagnosis for this admission?: Yes Plan: Is seen Dr. Magana as outpatient (3) Congestive heart failure Qualifiers: Heart failure type: diastolic Heart failure chronicity: chronic Qualified Code(s): I50.32 - Chronic diastolic (congestive) heart failure Is this a current diagnosis for this admission?: Yes Plan: Continues to Lasix (4) Diabetes Qualifiers: Diabetes mellitus type: type 2 Diabetes mellitus complication status: with unspecified complications Is this a current diagnosis for this admission?: Yes (5) Gastroesophageal reflux disease Qualifiers: Esophagitis presence: with esophagitis Qualified Code(s): K21.0 - Gastro- esophageal reflux disease with esophagitis Is this a current diagnosis for this admission?: Yes Plan: Continues to omeprazole (6) Urinary tract infection Qualifiers: Urinary tract infection type: site unspecified Is this a current diagnosis for this admission?: Yes (7) Dehydration Is this a current diagnosis for this admission?: Yes - Time Time Spent with patient: 15-24 minutes Medications reviewed and adjusted accordingly: Yes Anticipated discharge: Home Within: Other - Plan Summary Plan Summary: will of the abdomen and pelvis with p.o. contrast to further evaluate Physical therapy Noncompliance Discussed with the daughter
--- NOTE | 2019-01-27 16:24 | RADIOLOGY REPORT (SQ) ---
EXAM DESCRIPTION: CT ABD/PELVIS ORAL ONLY COMPLETED DATE/TIME: 01/27/2019 3:16 pm REASON FOR STUDY: abd distention COMPARISON: COOKIE SWALLOW 01/27/2019 CT ABDOMEN PELVIS 01/09/2019 TECHNIQUE: CT scan of the abdomen and pelvis performed without intravenous or oral contrast. Images reviewed with lung, soft tissue, and bone windows. Reconstructed coronal and sagittal MPR images revi ewed. All images stored on PACS. All CT scanners at this facility use dose modulation, iterative reconstruction, and/or weight based d osing when appropriate to reduce radiation dose to as low as reasonably achievable (ALARA). [facility]: Dose Right [facility]: CareDose [facility]: Dose Right [facility]: Teradose 4D [facility]: Smart INCIDE RADIATION DOSE: CT Rad equipment meets quality standard of care and radiation dose reduction techniq ues were employed. CTDIvol: 12.2 mGy. DLP: 642 mGy-cm.mGy. LIMITATIONS: None. FINDINGS: LOWER CHEST: No significant findings. No nodules or infiltrates. NON-CONTRASTED LIVER, SPLEEN, ADRENALS: Evaluation limited by lack of IV contrast. No identified sign ificant masses. PANCREAS: No masses. No peripancreatic inflammatory changes. GALLBLADDER: Tiny stones layer in the dependent gallbladder. No pericholecystic fluid RIGHT KIDNEY AND URETER: No suspicious masses. Assessment limited by lack of IV contrast. No signif icant calcifications. No hydronephrosis or hydroureter. LEFT KIDNEY AND URETER: No suspicious masses. Assessment limited by lack of IV contrast. No signifi cant calcifications. No hydronephrosis or hydroureter. AORTA AND RETROPERITONEUM: No aneurysm. No retroperitoneal masses or adenopathy. BOWEL AND PERITONEAL CAVITY: Patient had cookie swallow or video assisted swallowing study at 0900 ho urs today. She was scanned at 1500 hours with dense barium still in the stomach. This indicates del ayed gastric emptying. Remainder of the gastrointestinal tract is otherwise unremarkable aside from a fecal impaction, and large amount of stool throughout the colon. No bowel obstruction. No free in traperitoneal air or fluid. APPENDIX: Surgically absent PELVIS, BLADDER, AND ABDOMINAL WALL:No abnormal masses. No free fluid. Bladder normal. Post hysterec wilfred BONES: Multilevel significant central canal stenosis in the lumbar spine. OTHER: No other significant finding. IMPRESSION: Delayed gastric emptying. Stool full of colon. Otherwise unremarkable study. COMMENT: Quality ID # [id number]: Final reports with documentation of one or more dose reduction techniques (e.g., Automated exposure control, adjustment of the mA and/or kV according to patient size, use of iterative reconstruction technique) TECHNICAL DOCUMENTATION: JOB ID: [id number] [employer]- All Rights Reserved Reading location - IP/workstation name: [email or web address]
--- NOTE | 2019-01-27 17:51 | ST Inp Modified Barium Swallow ---
Medical Diagnosis - Medical Diagnoses Medical Diagnosis Description & ICD-10 Code(s): hypoglycemia, dysphagia R13.10 ST [place] [facility] [place]: 01/27/19 Date of Onset: 01/26/19 - History History Obtained From: Other - EMR -: Medical - Patient admitted 01/26 with altered mental status. She then reportedly had difficulty swallowing pineapple, stated it was stuck in her throat. Medications: Medications Reviewed Allergies: No known allergies - Subjective Current Nutritional Means: PO Current PO Diet: Regular Current Symptoms: c/o Globus sensation Pain: Patient reports, 0/5 - patient does not speak nepalese, MARTII used to explain procedure and results to paitent, as well as ask/answer questions. - Objective Assessment: Upright, Left Lateral - Food Trials Food Trials Used: Thin liquids, Pureed, Regular The Patient: Was Able to Self Feed - Assessment Labial Function: Within Normal Limits Lingual Function: Within Normal Limits Mandibular Function: Within Normal Limits Velo-Pharyngeal Function: Unremarkable - Pharyngeal Stage Initiation of Pharyngeal Stage: Normal Decreased Laryngeal Elevation: No Reduced Velo-Pharyngeal Closure: no Reduced Pressure Generation: No Reduced Tongue Base Retraction: No Pre-Swallowing Pooling in Valleculae: None Pre-Swallowing Pooling in Pyriforms: None Reduced Thyro-Hyiod Approximation: No Reduced Epiglottic Excursion: No Reduced Pharyngeal Peristalsis: No Post Swallow Residuals in Valleculae: None Post Swallow Residuals in Pyriforms: None - Impression/Summary Laryngeal Penetration: Yes - with thin liquid, Flash, during swallow Tracheal Aspiration: no Patient Presents With: Normal swallow at eval Risk of Aspiration: Minimal Risk of Nutritional Compromise: WNL - Recommendations Solid Diet Recommendations: Regular Liquid Diet Recommendations: Thin Dysphagia Therapy with FLEXOGRAPHIC PRESS SET UP OPERATOR: No Recommended Techniques: Fully Upright During Meal Other Recommendations: No skilled intervention indicated, effective physiology for safe swallowing. - Time Total Time: 30 Total Timed Minutes: 30
[2019-01-27] MEDS ORDERED: NA PHOS,M-B/NA PHOS,DI-BA (ADULT) 133 ML ENEMA PR ONE ×2 (18:00→19:00)
[2019-01-27] MEDS: DOCUSATE SODIUM 100 MG CAPSULE PO SCH (18:46)
[2019-01-28 05:48] LABS: ABSOLUTE BASOPHILS # (AUTO) 0.1 10^3/uL (0.0-0.2); ABSOLUTE EOSINOPHILS # (AUTO) 0.2 10^3/uL (0.0-0.6); ABSOLUTE LYMPHOCYTES (AUTO) 2.4 10^3/uL (0.5-4.7); ABSOLUTE MONOCYTES (AUTO) 0.7 10^3/uL (0.1-1.4); ABSOLUTE NEUT (AUTO) 5.1 10^3/uL (1.7-8.2); BASOPHILS % (AUTO) 0.8 % (0-2); EOSINOPHILS % (AUTO) 2.9 % (0-6); HEMATOCRIT 31.7 % (36.0-47.0); HEMOGLOBIN 10.7 g/dL (12.0-15.5); LYMPHOCYTES % (AUTO) 28.2 % (13-45); MEAN CORPUSCULAR HEMOGLOBIN 27.9 pg (27.0-33.4); MEAN CORPUSCULAR HGB CONC 33.9 g/dL (32.0-36.0); MEAN CORPUSCULAR VOLUME 83 fl (80-97); MONOCYTES % (AUTO) 8.5 % (3-13); PLATELET COUNT 320 10^3/uL (150-450); RED BLOOD COUNT 3.84 10^6/uL (3.72-5.28); RED CELL DISTRIBUTION WIDTH 14.7 % (11.5-14.0); SEGMENTED NEUTROPHILS % (AUTO) 59.6 % (42-78); TOTAL CELLS COUNTED % (AUTO) 100 %; WHITE BLOOD COUNT 8.5 10^3/uL (4.0-10.5)
[2019-01-28 06:15] LABS: ANION GAP 11 (5-19); BLOOD UREA NITROGEN 9 mg/dL (7-20); CALCIUM 8.8 mg/dL (8.4-10.2); CARBON DIOXIDE 28 mmol/L (22-30); CHLORIDE 100 mmol/L (98-107); GLUCOSE 94 mg/dL (75-110); POTASSIUM 3.7 mmol/L (3.6-5.0); SODIUM 138.5 mmol/L (137-145)
[2019-01-28] MEDS: INSULIN LISPRO 100 UNIT/ML 3 ML VIAL SUBCUT SCH ×4 (08:17→23:36)
--- NOTE | 2019-01-28 09:08 | PDOC PROGRESS REPORT ---
Subjective Progress Note for:: 01/28/19 Subjective:: Abdomen pelvis done yesterday results are consistent with the constipations According to the patient's patient have always issue with the constipations prolonged time Patient is denied any chest pain to than any shortness of the breath Patient speech therapy evaluations done was all stable Patient still weak Patients need a physical therapy Discussed with the patient daughter on the bedside Reason For Visit: HYPOGLYCEMICA Physical Exam Vital Signs: Temp Pulse Resp BP Pulse Ox 97.7 F 96 12 128/80 H 100 01/28/19 07:32 01/28/19 07:32 01/28/19 07:32 01/28/19 07:32 01/28/19 07:32 Intake & Output 01/27/19 01/28/19 01/29/19 06:59 06:59 06:59 Intake Total 1680 2177 Output Total 200 Balance 1480 2177 Weight 72.3 kg 74.5 kg General appearance: PRESENT: no acute distress, well-developed, well-nourished Head exam: PRESENT: atraumatic, normocephalic Eye exam: PRESENT: conjunctiva pink, EOMI, PERRLA. ABSENT: scleral icterus Ear exam: PRESENT: normal external ear exam Mouth exam: PRESENT: moist, tongue midline Neck exam: PRESENT: full ROM. ABSENT: carotid bruit, JVD, lymphadenopathy, thyromegaly Cardiovascular exam: PRESENT: RRR. ABSENT: diastolic murmur, rubs, systolic murmur Vascular exam: PRESENT: normal capillary refill GI/Abdominal exam: PRESENT: normal bowel sounds, soft. ABSENT: distended, guarding, mass, organolmegaly, rebound, tenderness Rectal exam: PRESENT: deferred Extremities exam: ABSENT: pedal edema Musculoskeletal exam: PRESENT: ambulatory Neurological exam: PRESENT: alert, awake, oriented to person, oriented to place, oriented to time, oriented to situation, CN II-XII grossly intact. ABSENT: motor sensory deficit Psychiatric exam: PRESENT: appropriate affect, normal mood. ABSENT: homicidal ideation, suicidal ideation Skin exam: PRESENT: dry, intact, warm. ABSENT: cyanosis, rash Results Laboratory Results: 01/28/19 05:11 01/28/19 05:11 01/28/19 01/28/19 05:11 05:11 WBC 8.5 RBC 3.84 Hgb 10.7 L Hct 31.7 L MCV 83 MCH 27.9 MCHC 33.9 RDW 14.7 H Plt Count 320 Seg Neutrophils % 59.6 Lymphocytes % 28.2 Monocytes % 8.5 Eosinophils % 2.9 Basophils % 0.8 Absolute Neutrophils 5.1 Absolute Lymphocytes 2.4 Absolute Monocytes 0.7 Absolute Eosinophils 0.2 Absolute Basophils 0.1 Sodium 138.5 Potassium 3.7 Chloride 100 Carbon Dioxide 28 Anion Gap 11 BUN 9 Creatinine 0.87 Est GFR ( Amer) > 60 Est GFR (Non-Af Amer) > 60 Glucose 94 Calcium 8.8 01/26/19 00:30 Clean Catch Midstream Urine Culture - Final Pseudomonas Aeruginosa 01/25/19 23:55 Troponin I < 0.012 Impressions: Chest X-Ray 01/26/19 00:03 IMPRESSION: Mild pulmonary vascular congestion, but no acute infiltrates. Abdomen/Pelvis CT 01/27/19 00:00 IMPRESSION: Delayed gastric emptying. Stool full of colon. Otherwise unremarkable study. Modified Barium Swallow 01/27/19 00:00 IMPRESSION: FLASH LARYNGEAL PENETRATION WITHOUT ASPIRATION SEEN WITH THIN BARIUM. PLEASE SEE SPEECH PATHOLOGIST REPORT FOR OTHER FINDINGS AND RECOM MENDATIONS. Assessment & Plan - Diagnosis (1) Hypoglycemia Is this a current diagnosis for this admission?: Yes Plan: Continues the Actos (2) Aortic stenosis Qualifiers: Cardiac valve disease etiology: nonrheumatic Qualified Code(s): I35.0 - Nonrheumatic aortic (valve) stenosis Is this a current diagnosis for this admission?: Yes Plan: Is seen Dr. Magana as outpatient (3) Congestive heart failure Qualifiers: Heart failure type: diastolic Heart failure chronicity: chronic Qualified Code(s): I50.32 - Chronic diastolic (congestive) heart failure Is this a current diagnosis for this admission?: Yes Plan: Continues to Lasix (4) Diabetes Qualifiers: Diabetes mellitus type: type 2 Diabetes mellitus complication status: with unspecified complications Is this a current diagnosis for this admission?: Yes (5) Gastroesophageal reflux disease Qualifiers: Esophagitis presence: with esophagitis Qualified Code(s): K21.0 - Gastro-esophageal reflux disease with esophagitis Is this a current diagnosis for this admission?: Yes Plan: Continues to omeprazole (6) Urinary tract infection Qualifiers: Urinary tract infection type: site unspecified Is this a current diagnosis for this admission?: Yes Plan: Change to IV Cipro to the p.o. Cipro (7) Dehydration Is this a current diagnosis for this admission?: Yes (8) Constipation Qualifiers: Constipation type: unspecified constipation type Qualified Code(s): K59.00 - Constipation, unspecified Is this a current diagnosis for this admission?: Yes Plan: Will add the lactulose twice a day continues the MiraLAX eat more fibers patients may need outpatients colonoscopy - Time Time Spent with patient: 15-24 minutes Medications reviewed and adjusted accordingly: Yes Anticipated discharge: Home Within: Other - Plan Summary Plan Summary: Continues to current medication
[2019-01-28] MEDS: CYANOCOBALAMIN (VITAMIN B-12) 1,000 MCG TABLET PO SCH (09:10)
[2019-01-28] MEDS: METOPROLOL SUCCINATE 25 MG TAB.SR.24H PO SCH ×2 (09:10→23:12)
[2019-01-28] MEDS: POLYETHYLENE GLYCOL 3350 POWDER 17 GM/1 PACKET PO SCH (09:10)
[2019-01-28] MEDS: DOCUSATE SODIUM 100 MG CAPSULE PO SCH ×2 (09:11→17:09)
[2019-01-28] MEDS: CIPROFLOXACIN 400 MG/D5W RTU 400 MG/200 ML RTUPB IV SCH ×2 (09:11→23:11)
[2019-01-28] MEDS: PIOGLITAZONE HCL 30 MG TABLET PO SCH (09:11)
[2019-01-28] MEDS: PANTOPRAZOLE SODIUM 40 MG TABLET.DR PO SCH ×2 (09:11→17:09)
[2019-01-28] MEDS: LACTULOSE SYRUP 20 GM/30 ML UDCUP PO SCH ×2 (09:11→17:09)
[2019-01-28] MEDS: ONDANSETRON HCL INJ/PF 4 MG/2 ML SDV IV PRN ×3 (13:06→23:14)
--- NOTE | 2019-01-28 14:07 | PDOC PROGRESS REPORT ---
Subjective Progress Note for:: 01/28/19 Subjective:: patient had been seen on previous admission had EGD with botox documented to have gastroparesis patient not better after previous injection now readmitted, has been having constipation as well she could have autonomic neuropathy and Dr Klein has been started on Miralax and lactulose will clinically see if that would be helpful however she has not had a colonoscopy patient may need one as an outpatient she does have gastroparesis and may benefit from use of Reglan 10mg BID previous EGD was negative for any gastric outlet obstruction spoke with Dr Klein regarding current recommendations Reason For Visit: HYPOGLYCEMICA Physical Exam Vital Signs: Temp Pulse Resp BP Pulse Ox 97.9 F 98 14 114/46 L 95 01/28/19 11:18 01/28/19 11:18 01/28/19 11:18 01/28/19 11:18 01/28/19 11:18 Intake & Output 01/27/19 01/28/19 01/29/19 06:59 06:59 06:59 Intake Total 1680 2177 1060 Output Total 200 Balance 1480 2177 1060 Weight 72.3 kg 74.5 kg General appearance: PRESENT: no acute distress, well-developed, well-nourished Head exam: PRESENT: atraumatic, normocephalic Eye exam: PRESENT: EOMI, PERRLA. ABSENT: nystagmus, periorbital swelling, scleral icterus Mouth exam: PRESENT: moist, neck supple Throat exam: ABSENT: tonsillar exudate, tonsillogmegaly Neck exam: ABSENT: meningismus, tenderness, thyromegaly, tracheostomy Respiratory exam: PRESENT: symmetrical, unlabored. ABSENT: tachypnea, wheezes Cardiovascular exam: PRESENT: RRR, +S1, +S2 GI/Abdominal exam: PRESENT: soft. ABSENT: rebound, rigid, tenderness Extremities exam: ABSENT: joint swelling, pedal edema Neurological exam: PRESENT: oriented to time, reflexes normal, CN II-XII grossly intact Focused psych exam: ABSENT: restlessness Skin exam: PRESENT: normal color. ABSENT: mottled, urticaria, vesicles Results Laboratory Results: 01/28/19 05:11 01/28/19 05:11 01/28/19 01/28/19 05:11 05:11 WBC 8.5 RBC 3.84 Hgb 10.7 L Hct 31.7 L MCV 83 MCH 27.9 MCHC 33.9 RDW 14.7 H Plt Count 320 Seg Neutrophils % 59.6 Lymphocytes % 28.2 Monocytes % 8.5 Eosinophils % 2.9 Basophils % 0.8 Absolute Neutrophils 5.1 Absolute Lymphocytes 2.4 Absolute Monocytes 0.7 Absolute Eosinophils 0.2 Absolute Basophils 0.1 Sodium 138.5 Potassium 3.7 Chloride 100 Carbon Dioxide 28 Anion Gap 11 BUN 9 Creatinine 0.87 Est GFR ( Amer) > 60 Est GFR (Non-Af Amer) > 60 Glucose 94 Calcium 8.8 01/26/19 00:30 Clean Catch Midstream Urine Culture - Final Pseudomonas Aeruginosa 01/25/19 23:55 Troponin I < 0.012 Impressions: Chest X-Ray 01/26/19 00:03 IMPRESSION: Mild pulmonary vascular congestion, but no acute infiltrates. Abdomen/Pelvis CT 01/27/19 00:00 IMPRESSION: Delayed gastric emptying. Stool full of colon. Otherwise unremarkable study. Modified Barium Swallow 01/27/19 00:00 IMPRESSION: FLASH LARYNGEAL PENETRATION WITHOUT ASPIRATION SEEN WITH THIN BARIUM. PLEASE SEE SPEECH PATHOLOGIST REPORT FOR OTHER FINDINGS AND RECOMMENDATIONS. Assessment & Plan - Diagnosis (1) Gastroparesis Is this a current diagnosis for this admission?: Yes Plan: s/p EGD with Botox injection not successful trial of Reglan 10mg BID (2) Constipation Qualifiers: Constipation type: unspecified constipation type Qualified Code(s): K59.00 - Constipation, unspecified Is this a current diagnosis for this admission?: Yes Plan: currently on Miralax and Reglan , will see if there will be improvement may need out patient colonoscopy at some point - Time Time Spent with patient: 15-24 minutes
[2019-01-29 07:00] LABS: ANION GAP 5 (5-19); BLOOD UREA NITROGEN 9 mg/dL (7-20); CALCIUM 8.8 mg/dL (8.4-10.2); CARBON DIOXIDE 30 mmol/L (22-30); CHLORIDE 104 mmol/L (98-107); GLUCOSE 124 mg/dL (75-110); POTASSIUM 3.6 mmol/L (3.6-5.0); SODIUM 138.9 mmol/L (137-145)
[2019-01-29] MEDS: ONDANSETRON HCL INJ/PF 4 MG/2 ML SDV IV PRN ×3 (08:08→20:29)
[2019-01-29] MEDS: INSULIN LISPRO 100 UNIT/ML 3 ML VIAL SUBCUT SCH ×3 (08:14→17:47)
--- NOTE | 2019-01-29 09:57 | PDOC PROGRESS REPORT ---
Subjective Progress Note for:: 01/29/19 Subjective:: Patient is currently doing same Denied any chest pain to than any shortness of the breath Patient still did have a bowel movement Patient seen by the GI suggest the use of Reglan as needed for the gastroparesis Patient's does not like the hospital food asked the family to bring at home Patient's otherwise still have a very poor mobility Reason For Visit: HYPOGLYCEMICA Physical Exam Vital Signs: Temp Pulse Resp BP Pulse Ox 97.6 F 92 16 106/34 L 98 01/29/19 08:16 01/29/19 08:16 01/29/19 08:16 01/29/19 08:16 01/29/19 08:16 Intake & Output 01/28/19 01/29/19 01/30/19 06:59 06:59 06:59 Intake Total 2177 1837 Balance 2177 1837 Weight 74.5 kg 74.5 kg General appearance: PRESENT: no acute distress, well-developed, well-nourished Head exam: PRESENT: atraumatic, normocephalic Eye exam: PRESENT: conjunctiva pink, EOMI, PERRLA. ABSENT: scleral icterus Ear exam: PRESENT: normal external ear exam Mouth exam: PRESENT: moist, tongue midline Neck exam: PRESENT: full ROM. ABSENT: carotid bruit, JVD, lymphadenopathy, thyromegaly Respiratory exam: PRESENT: clear to auscultation aishwarya Cardiovascular exam: PRESENT: RRR. ABSENT: diastolic murmur, rubs, systolic murmur Vascular exam: PRESENT: normal capillary refill GI/Abdominal exam: PRESENT: normal bowel sounds, soft. ABSENT: distended, guarding, mass, organolmegaly, rebound, tenderness Rectal exam: PRESENT: deferred Neurological exam: PRESENT: alert, awake, oriented to person, oriented to place, oriented to time, oriented to situation, CN II-XII grossly intact. ABSENT: ana r sensory deficit Psychiatric exam: PRESENT: appropriate affect, normal mood. ABSENT: homicidal ideation, suicidal ideation Skin exam: PRESENT: dry, intact, warm. ABSENT: cyanosis, rash Results Laboratory Results: 01/28/19 05:11 01/29/19 05:40 01/29/19 05:40 Sodium 138.9 Potassium 3.6 Chloride 104 Carbon Dioxide 30 Anion Gap 5 BUN 9 Creatinine 0.92 Est GFR ( Amer) > 60 Est GFR (Non-Af Amer) > 60 Glucose 124 H Calcium 8.8 01/26/19 00:30 Clean Catch Midstream Urine Culture - Final Pseudomonas Aeruginosa 01/25/19 23:55 Troponin I < 0.012 Impressions: Chest X-Ray 01/26/19 00:03 IMPRESSION: Mild pulmonary vascular congestion, but no acute infiltrates. Abdomen/Pelvis CT 01/27/19 00:00 IMPRESSION: Delayed gastric emptying. Stool full of colon. Otherwise unremarkable study. Modified Barium Swallow 01/27/19 00:00 IMPRESSION: FLASH LARYNGEAL PENETRATION WITHOUT ASPIRATION SEEN WITH THIN BARIU M. PLEASE SEE SPEECH PATHOLOGIST REPORT FOR OTHER FINDINGS AND RECOMMENDATIONS. Assessment & Plan - Diagnosis (1) Hypoglycemia Is this a current diagnosis for this admission?: Yes Plan: Currently all resolved (2) Aortic stenosis Qualifiers: Cardiac valve disease etiology: nonrheumatic Qualified Code(s): I35.0 - Non rheumatic aortic (valve) stenosis Is this a current diagnosis for this admission?: Yes Plan: With the cardiology (3) Congestive heart failure Qualifiers: Heart failure type: diastolic Heart failure chronicity: chronic Qualified Code(s): I50.32 - Chronic diastolic (congestive) heart failure Is this a current diagnosis for this admission?: Yes Plan: Continues to Lasix (4) Diabetes Qualifiers: Diabetes mellitus type: type 2 Diabetes mellitus complication status: with unspecified complications Is this a current diagnosis for this admission?: Yes Plan: Continue the Actos (5) Gastroesophageal reflux disease Qualifiers: Esophagitis presence: with esophagitis Qualified Code(s): K21.0 - Gastro- esophageal reflux disease with esophagitis Is this a current diagnosis for this admission?: Yes Plan: Continues to omeprazole (6) Urinary tract infection Qualifiers: Urinary tract infection type: site unspecified Is this a current diagnosis for this admission?: Yes Plan: Change to IV Cipro to the p.o. Cipro (7) Dehydration Is this a current diagnosis for this admission?: Yes (8) Constipation Qualifiers: Constipation type: unspecified constipation type Qualified Code(s): K59.00 - Constipation, unspecified Is this a current diagnosis for this admission?: Yes Plan: Continues lactulose will give her 1 more enema - Time Time Spent with patient: 15-24 minutes Medications reviewed and adjusted accordingly: Yes Anticipated discharge: Home Within: Other - Plan Summary Plan Summary: Overall patient's condition is not very good due to the multiple comorbidity and patient's does not have any mobility Will get the KUB today
[2019-01-29] MEDS: METOPROLOL SUCCINATE 25 MG TAB.SR.24H PO SCH (10:50)
[2019-01-29] MEDS: PANTOPRAZOLE SODIUM 40 MG TABLET.DR PO SCH ×2 (10:50→17:47)
[2019-01-29] MEDS: CYANOCOBALAMIN (VITAMIN B-12) 1,000 MCG TABLET PO SCH (10:50)
[2019-01-29] MEDS: POLYETHYLENE GLYCOL 3350 POWDER 17 GM/1 PACKET PO SCH (10:51)
[2019-01-29] MEDS: CIPROFLOXACIN 400 MG/D5W RTU 400 MG/200 ML RTUPB IV SCH (10:51)
[2019-01-29] MEDS: DOCUSATE SODIUM 100 MG CAPSULE PO SCH ×2 (10:51→17:47)
[2019-01-29] MEDS: LACTULOSE SYRUP 20 GM/30 ML UDCUP PO SCH ×2 (10:51→17:47)
[2019-01-29] MEDS: PIOGLITAZONE HCL 30 MG TABLET PO SCH (11:00)
--- NOTE | 2019-01-29 14:28 | RADIOLOGY REPORT (SQ) ---
EXAM DESCRIPTION: KUB/ABDOMEN (SINGLE VIEW) COMPLETED DATE/TIME: 01/29/2019 2:18 pm REASON FOR STUDY: follow up constipation/ RO blockage COMPARISON: None. NUMBER OF VIEWS: One view. TECHNIQUE: Supine radiographic image of the abdomen acquired. LIMITATIONS: None. FINDINGS: BOWEL GAS PATTERN: Retained oral contrast in the colon and rectum, more so in the transve rse colon toward the splenic flexure and rectum. Slightly distended small bowel loops in the left lo wer quadrant of the abdomen. CALCIFICATIONS: No suspicious calcifications. SOFT TISSUES: No gross mass or suggestion of organomegaly. HARDWARE: None in the abdomen. BONES: Degenerative changes involve the visualized lower thoracic and lumbar spine. OTHER: No other significant finding. IMPRESSION: 1. Retained oral contrast in the transverse colon toward the splenic flexure and within the rectum from previous gastrointestinal studies. Correlation suggested. TECHNICAL DOCUMENTATION: JOB ID: [id number] [employer]- All Rights Reserved Reading location - IP/workstation name: [email or web address]
[2019-01-30] MEDS: INSULIN LISPRO 100 UNIT/ML 3 ML VIAL SUBCUT SCH ×5 (00:03→22:10)
[2019-01-30] MEDS: METOPROLOL SUCCINATE 25 MG TAB.SR.24H PO SCH ×3 (00:03→22:10)
[2019-01-30] MEDS: CIPROFLOXACIN 400 MG/D5W RTU 400 MG/200 ML RTUPB IV SCH ×2 (00:04→09:39)
[2019-01-30] MEDS: ONDANSETRON HCL INJ/PF 4 MG/2 ML SDV IV PRN (00:21)
[2019-01-30] MEDS: CYANOCOBALAMIN (VITAMIN B-12) 1,000 MCG TABLET PO SCH (09:37)
[2019-01-30] MEDS: LACTULOSE SYRUP 20 GM/30 ML UDCUP PO SCH ×2 (09:37→17:13)
[2019-01-30] MEDS: PANTOPRAZOLE SODIUM 40 MG TABLET.DR PO SCH ×2 (09:37→17:13)
[2019-01-30] MEDS: DOCUSATE SODIUM 100 MG CAPSULE PO SCH ×2 (09:40→17:13)
[2019-01-30] MEDS: POLYETHYLENE GLYCOL 3350 POWDER 17 GM/1 PACKET PO SCH (09:40)
[2019-01-30] MEDS: PIOGLITAZONE HCL 30 MG TABLET PO SCH (09:46)
--- NOTE | 2019-01-30 15:00 | PDOC PROGRESS REPORT ---
Subjective Progress Note for:: 01/30/19 Subjective:: Patient have a positive bowel movement Patient is denied any abdominal pain no nausea no Patient still unable to ambulatory very well Patient was stage II ulcers in the back Discussed with the family on the bedside unfortunately patient had a hard time to go to the rehab facility because of insurance issues Reason For Visit: HYPOGLYCEMICA Physical Exam Vital Signs: Temp Pulse Resp BP Pulse Ox 97.9 F 70 16 140/59 H 100 01/30/19 08:45 01/30/19 14:00 01/30/19 08:45 01/30/19 08:45 01/30/19 08:45 Intake & Output 01/29/19 01/30/19 01/31/19 06:59 06:59 06:59 Intake Total 1837 1018 200 Output Total 200 Balance 1837 818 200 Weight 74.5 kg General appearance: PRESENT: no acute distress, well-developed, well-nourished Head exam: PRESENT: atraumatic, normocephalic Eye exam: PRESENT: conjunctiva pink, EOMI, PERRLA. ABSENT: scleral icterus Ear exam: PRESENT: normal external ear exam Mouth exam: PRESENT: moist, tongue midline Neck exam: PRESENT: full ROM. ABSENT: carotid bruit, JVD, lymphadenopathy, thyromegaly Respiratory exam: PRESENT: clear to auscultation aishwarya Cardiovascular exam: PRESENT: RRR. ABSENT: diastolic murmur, rubs, systolic murmur Vascular exam: PRESENT: normal capillary refill GI/Abdominal exam: PRESENT: normal bowel sounds, soft. ABSENT: distended, gua rding, mass, organolmegaly, rebound, tenderness Rectal exam: PRESENT: deferred Neurological exam: PRESENT: alert, awake, oriented to person, oriented to place, oriented to time, oriented to situation, CN II-XII grossly intact. ABSENT: motor sensory deficit Psychiatric exam: PRESENT: appropriate affect, normal mood. ABSENT: homicidal ideation, suicidal ideation Skin exam: PRESENT: dry, intact, warm. ABSENT: cyanosis, rash Results Laboratory Results: 01/28/19 05:11 01/29/19 05:40 01/25/19 23:55 Troponin I < 0.012 Impressions: Chest X-Ray 01/26/19 00:03 IMPRESSION: Mild pulmonary vascular congestion, but no acute infiltrates. Abdomen/Pelvis CT 01/27/19 00:00 IMPRESSION: Delayed gastric emptying. Stool full of colon. Otherwise unremarkable study. Modified Barium Swallow 01/27/19 00:00 IMPRESSION: FLASH LARYNGEAL PENETRATION WITHOUT ASPIRATION SEEN WITH THIN BARIUM. PLEASE SEE SPEECH PATHOLOGIST REPORT FOR OTHER FINDINGS AND RECOMMENDATIONS. KUB X-Ray 01/29/19 00:00 IMPRESSION: 1. Retained oral contrast in the transverse colon toward the splenic flexure and within the rectum from previous gastrointestinal studies. Correlation suggested. Assessment & Plan - Diagnosis (1) Hypoglycemia Is this a current diagnosis for this admission?: Yes Plan: Currently all resolved (2) Aortic stenosis Qualifiers: Cardiac valve disease etiology: nonrheumatic Qualified Code(s): I35.0 - Nonrheumatic aortic (valve) stenosis Is this a current diagnosis for this admission?: Yes Plan: With the cardiology (3) Congestive heart failure Qualifiers: Heart failure type: diastolic Heart failure chronicity: chronic Qualified Code(s): I50.32 - Chronic diastolic (congestive) heart failure Is this a current diagnosis for this admission?: Yes Plan: Continues to Lasix (4) Diabetes Qualifiers: Diabetes mellitus type: type 2 Diabetes mellitus complication status: with unspecified complications Is this a current diagnosis for this admission?: Yes Plan: Continue the Actos (5) Gastroesophageal reflux disease Qualifiers: Esophagitis presence: with esophagitis Qualified Code(s): K21.0 - Gastro- esophageal reflux disease with esophagitis Is this a current diagnosis for this admission?: Yes Plan: Continues to omeprazole (6) Urinary tract infection Qualifiers: Urinary tract infection type: site unspecified Is this a current diagnosis for this admission?: Yes Plan: Change to IV Cipro to the p.o. Cipro (7) Dehydration Is this a current diagnosis for this admission?: Yes (8) Constipation Qualifiers: Constipation type: unspecified constipation type Qualified Code(s): K59.00 - Constipation, unspecified Is this a current diagnosis for this admission?: Yes Plan: Currently getting all improving (9) Stage II decubitus ulcer Qualifiers: Pressure injury location: sacral region Qualified Code(s): L89.152 - Pressure ulcer of sacral region, stage 2 Is this a current diagnosis for this admission?: Yes Plan: Frequent change positions Put the dressing - Time Time Spent with patient: 15-24 minutes Medications reviewed and adjusted accordingly: Yes Anticipated discharge: Other Within: Other - Plan Summary Plan Summary: Discussed with the patient's family on the bedside with extensively Patient's mobility is very poor Patients will get a benefit to the rehab facilities\unfortunately patient does not have any insurance will check with the inventory control planner
--- NOTE | 2019-01-30 16:18 | RADIOLOGY REPORT (SQ) ---
EXAM DESCRIPTION: KUB/ABDOMEN (SINGLE VIEW) COMPLETED DATE/TIME: 01/30/2019 3:44 pm REASON FOR STUDY: constipation COMPARISON: Previous day. NUMBER OF VIEWS: One view. TECHNIQUE: Supine radiographic image of the abdomen acquired. LIMITATIONS: None. FINDINGS: BOWEL GAS PATTERN: Oral contrast within nondilated colon. No dilated loops. CALCIFICATIONS: No suspicious calcifications. SOFT TISSUES: No gross mass or suggestion of organomegaly. HARDWARE: None. BONES: No bone lesions or fracture. OTHER: No other significant finding. IMPRESSION: NO RADIOGRAPHIC EVIDENCE FOR ACUTE ABDOMINAL DISEASE. Reading location - IP/workstation name: [email or web address]
[2019-01-30] MEDS: CIPROFLOXACIN HCL 500 MG TABLET PO SCH (17:13)
[2019-01-31] MEDS: INSULIN LISPRO 100 UNIT/ML 3 ML VIAL SUBCUT SCH ×4 (09:50→21:11)
[2019-01-31] MEDS: CYANOCOBALAMIN (VITAMIN B-12) 1,000 MCG TABLET PO SCH (09:55)
[2019-01-31] MEDS: PANTOPRAZOLE SODIUM 40 MG TABLET.DR PO SCH ×2 (09:55→17:32)
[2019-01-31] MEDS: POLYETHYLENE GLYCOL 3350 POWDER 17 GM/1 PACKET PO SCH (09:56)
[2019-01-31] MEDS: LACTULOSE SYRUP 20 GM/30 ML UDCUP PO SCH ×2 (09:56→17:30)
[2019-01-31] MEDS: METOPROLOL SUCCINATE 25 MG TAB.SR.24H PO SCH ×2 (09:56→21:23)
[2019-01-31] MEDS: DOCUSATE SODIUM 100 MG CAPSULE PO SCH ×2 (09:56→17:30)
[2019-01-31] MEDS: CIPROFLOXACIN HCL 500 MG TABLET PO SCH ×2 (09:58→17:32)
[2019-01-31] MEDS: PIOGLITAZONE HCL 30 MG TABLET PO SCH (10:10)
--- NOTE | 2019-01-31 12:28 | PDOC PROGRESS REPORT ---
Subjective Progress Note for:: 01/31/19 Subjective:: Patient have a positive bowel movement Patient is denied any abdominal pain no nausea no Patient still unable to ambulatory very well Patient was stage II ulcers in the back Discussed with the family on the bedside unfortunately patient had a hard time to go to the rehab facility because of insurance issues Reason For Visit: HYPOGLYCEMICA Physical Exam Vital Signs: Temp Pulse Resp BP Pulse Ox 97.7 F 90 14 112/46 L 99 01/31/19 07:33 01/31/19 07:33 01/31/19 07:33 01/31/19 07:33 01/31/19 07:33 Intake & Output 01/30/19 01/31/19 02/01/19 06:59 06:59 06:59 Intake Total 1018 968 Output Total 200 Balance 818 968 Weight 72.5 kg General appearance: PRESENT: no acute distress, well-developed, well-nourished Head exam: PRESENT: atraumatic, normocephalic Eye exam: PRESENT: conjunctiva pink, EOMI, PERRLA. ABSENT: scleral icterus Ear exam: PRESENT: normal external ear exam Mouth exam: PRESENT: moist, tongue midline Neck exam: PRESENT: full ROM. ABSENT: carotid bruit, JVD, lymphadenopathy, thyromegaly Respiratory exam: PRESENT: clear to auscultation aishwarya Cardiovascular exam: PRESENT: RRR. ABSENT: diastolic murmur, rubs, systolic murmur Vascular exam: PRESENT: normal capillary refill GI/Abdominal exam: PRESENT: normal bowel sounds, soft. ABSENT: distended, guarding, mass, organolmegaly, rebound, tenderness Rectal exam: PRESENT: deferred Neurological exam: PRESENT: alert, awake, oriented to person, oriented to place, oriented to time, oriented to situation, CN II-XII grossly intact. ABSENT: motor sensory deficit Psychiatric exam: PRESENT: appropriate affect, normal mood. ABSENT: homicidal ideation, suicidal ideation Skin exam: PRESENT: dry, intact, warm. ABSENT: cyanosis, rash Results Laboratory Results: 01/28/19 05:11 01/29/19 05:40 01/26/19 06:57 Blood Blood Culture - Final NO GROWTH IN 5 DAYS 01/26/19 02:05 Blood Blood Culture - Final NO GROWTH IN 5 DAYS 01/25/19 23:55 Troponin I < 0.012 Impressions: Chest X-Ray 01/26/19 00:03 IMPRESSION: Mild pulmonary vascular congestion, but no acute infiltrates. Abdomen/Pelvis CT 01/27/19 00:00 IMPRESSION: Delayed gastric emptying. Stool full of colon. Otherwise unremarkable study. Modified Barium Swallow 01/27/19 00:00 IMPRESSION: FLASH LARYNGEAL PENETRATION WITHOUT ASPIRATION SEEN WITH THIN BARIUM. PLEASE SEE SPEECH PATHOLOGIST REPORT FOR OTHER FINDINGS AND RECOMMENDATIONS. KUB X-Ray 01/30/19 00:00 IMPRESSION: NO RADIOGRAPHIC EVIDENCE FOR ACUTE ABDOMINAL DISEASE. Assessment & Plan - Diagnosis (1) Hypoglycemia Is this a current diagnosis for this admission?: Yes Plan: Currently all resolved (2) Aortic stenosis Qualifiers: Cardiac valve disease etiology: nonrheumatic Qualified Code(s): I35.0 - Nonrheumatic aortic (valve) stenosis Is this a current diagnosis for this admission?: Yes Plan: With the cardiology (3) Congestive heart failure Qualifiers: Heart failure type: diastolic Heart failure chronicity: chronic Qualified Code(s): I50.32 - Chronic diastolic (congestive) heart failure Is this a current diagnosis for this admission?: Yes Plan: Continues to Lasix (4) Diabetes Qualifiers: Diabetes mellitus type: type 2 Diabetes mellitus complication status: with unspecified complications Is this a current diagnosis for this admission?: Yes Plan: Continue the Actos (5) Gastroesophageal reflux disease Qualifiers: Esophagitis presence: with esophagitis Qualified Code(s): K21.0 - Gastro- esophageal reflux disease with esophagitis Is this a current diagnosis for this admission?: Yes Plan: Continues to omeprazole (6) Urinary tract infection Qualifiers: Urinary tract infection type: site unspecified Is this a current diagnosis for this admission?: Yes Plan: Change to IV Cipro to the p.o. Cipro (7) Dehydration Is this a current diagnosis for this admission?: Yes (8) Constipation Qualifiers: Constipation type: unspecified constipation type Qualified Code(s): K59.00 - Constipation, unspecified Is this a current diagnosis for this admission?: Yes Plan: Currently getting all improving (9) Stage II decubitus ulcer Qualifiers: Pressure injury location: sacral region Qualified Code(s): L89.152 - Pressure ulcer of sacral region, stage 2 Is this a current diagnosis for this admission?: Yes Plan: Frequent change positions Put the dressing - Plan Summary Plan Summary: Continues to physical therapy Plan to discharge home tomorrow while patient unable to go to the rehab facility
[2019-02-01] MEDS: INSULIN LISPRO 100 UNIT/ML 3 ML VIAL SUBCUT SCH ×2 (08:36→13:12)
--- NOTE | 2019-02-01 10:45 | PDOC DISCHARGE SUMMARY ---
General - Admit/Disc Date/PCP Admission Date/Primary Care Provider: 01/26/19 02:26 MILLICENT ESPINOZA MD Discharge Date: 02/01/19 - Discharge Diagnosis (1) Hypoglycemia Is this a current diagnosis for this admission?: Yes Summary: Will discontinue's the Actos Will try the Januvia 50 mg only which definitely not giving any hypoglycemia And add the Metformin slowly (2) Aortic stenosis Is this a current diagnosis for this admission?: Yes Summary: Follow outpatients cardiology (3) Congestive heart failure Is this a current diagnosis for this admission?: Yes Summary: Continues to Lasix (4) Diabetes Is this a current diagnosis for this admission?: Yes Summary: Will discontinue's the glimepiride and Actos both due to the hypoglycemia Given Januvia 50 mg and metformin (5) Gastroesophageal reflux disease Is this a current diagnosis for this admission?: Yes Summary: continue to omeprazole (6) Urinary tract infection Is this a current diagnosis for this admission?: Yes Summary: Patient is finished the Cipro antibiotic for 7 days (7) Dehydration Is this a current diagnosis for this admission?: Yes Summary: Currently all resolved (8) Constipation Is this a current diagnosis for this admission?: Yes Summary: Currently all resolved (9) Stage II decubitus ulcer Is this a current diagnosis for this admission?: Yes Summary: Due to the patient going on going to conditions with the physical therapy as outpatients - Additional Information Discharge Diet: Diabetic Discharge Activity: Activity As Tolerated Prescriptions: Lactulose [Cephulac Syrup 20 gm/30 ml Udcup] 10 gm PO DAILY #30 udc Polyethylene Glycol 3350 [Miralax Powder 17 gm/Packet] 1 packet PO DAILY #30 pkg Sitagliptin Phosphate [Januvia 50 mg Tablet] 50 mg PO DAILY #30 tablet Home Medications: Cyanocobalamin/Cobamamide [Vitamin B-12 5,000 Mcg Tab Sl] 5,000 mcg SL DAILY 01/09/19 Metformin HCl [Metformin HCl ER] 500 mg PO BID 01/09/19 Furosemide [Lasix 20 mg Tablet] 20 mg PO DAILY #30 tablet 01/13/19 Metoprolol Succinate [Toprol Xl 25 mg Tab.sr] 12.5 mg PO Q12 #60 01/13/19 Omeprazole 40 mg PO DAILY #30 capsule. 01/13/19 Lactulose [Cephulac Syrup 20 gm/30 ml Udcup] 10 gm PO DAILY #30 udc 02/01/19 Polyethylene Glycol 3350 [Miralax Powder 17 gm/Packet] 1 packet PO DAILY #30 pkg 02/01/19 Sitagliptin Phosphate [Januvia 50 mg Tablet] 50 mg PO DAILY #30 tablet 02/01/19 History of Present Illness History of Present Illness: GUIDO GARCIA is a 68 year old female Patient was admitted for the ongoing D conditions and hypoglycemia Patient's blood sugar was low most likely possible from glimepiride and patient's not eating much due to the gastroparesis Patient's other than that denied any other symptoms Hospital Course Hospital Course: This is a 68-year-old female with a history of the type 2 diabetes history of the hypertension history of the aortic stenosis and history of congestive heart failure with ongoing patient unable to move much and multiple other conditions not very good family support due to the lot of other social things brought to the emergency department because of the blood sugar is lower Patient at this point admitting in the hospital patient's glimepiride was discontinued Patient also has significant gastroparesis and an endoscopy done a couple of weeks back was Botox injection was given by Dr. Frances Patient also have a severe constipation issues because unable to move much and patient was giving the stool softener and lactulose which successfully resolved Patient is get the physical therapy Patient was stage II ulcer on the back Patient at this point the Actos was also discontinues Patient's otherwise remained stable Unfortunately this patient have no choice to go to the nursing facility because of the patient does not have a no insurance and family unable to afford to send to the rehab facility which is the best place the patient is to go Discussed with her extensively with the patient's daughter and son-in-law regarding the patient's current conditions and is to close follow-up with all the physician including the patients need a colonoscopy patient is to see the cardiology but unable to bring the patient's for any offices for a several years because of the patient's mobility is the biggest problems and family can unable to afford to the ambulance Again discussed with the family will consult the administrator social welfare to help the patient's and family We will discharge the patient's to the home patients at home health and physical therapy continues closely monitor for any hypoglycemic symptoms Physical Exam Vital Signs: Temp Pulse Resp BP Pulse Ox 97.9 F 95 17 102/59 L 100 02/01/19 09:31 02/01/19 09:31 02/01/19 09:31 02/01/19 09:31 02/01/19 09:31 Intake & Output 01/31/19 02/01/19 02/02/19 06:59 06:59 06:59 Intake Total 968 876 Balance 968 876 Weight 72.5 kg 76.3 kg General appearance: PRESENT: no acute distress, well-developed, well-nourished Head exam: PRESENT: atraumatic, normocephalic Eye exam: PRESENT: conjunctiva pink, EOMI, PERRLA. ABSENT: scleral icterus Ear exam: PRESENT: normal external ear exam Mouth exam: PRESENT: moist, tongue midline Neck exam: PRESENT: full ROM. ABSENT: carotid bruit, JVD, lymphadenopathy, thy romegaly Respiratory exam: PRESENT: clear to auscultation aishwarya Cardiovascular exam: PRESENT: RRR. ABSENT: diastolic murmur, rubs, systolic murmur Vascular exam: PRESENT: normal capillary refill GI/Abdominal exam: PRESENT: normal bowel sounds, soft. ABSENT: distended, guarding, mass, organolmegaly, rebound, tenderness Rectal exam: PRESENT: deferred Extremities exam: ABSENT: pedal edema Musculoskeletal exam: PRESENT: ambulatory Neurological exam: PRESENT: alert, awake, oriented to person, oriented to place, oriented to time, oriented to situation, CN II-XII grossly intact. ABSENT: motor sensory deficit Psychiatric exam: PRESENT: appropriate affect, normal mood. ABSENT: homicidal ideation, suicidal ideation Skin exam: PRESENT: dry, intact, warm. ABSENT: cyanosis, rash Results Laboratory Results: 01/28/19 05:11 01/29/19 05:40 01/26/19 06:57 Blood Blood Culture - Final NO GROWTH IN 5 DAYS 01/25/19 23:55 Troponin I < 0.012 Impressions: Chest X-Ray 01/26/19 00:03 IMPRESSION: Mild pulmonary vascular congestion, but no acute infiltrates. Abdomen/Pelvis CT 01/27/19 00:00 IMPRESSION: Delayed gastric emptying. Stool full of colon. Otherwise unremarkable study. Modified Barium Swallow 01/27/19 00:00 IMPRESSION: FLASH LARYNGEAL PENETRATION WITHOUT ASPIRATION SEEN WITH THIN BARIUM. PLEASE SEE SPEECH PATHOLOGIST REPORT FOR OTHER FINDINGS AND RECOMMENDATIONS. KUB X-Ray 01/30/19 00:00 IMPRESSION: NO RADIOGRAPHIC EVIDENCE FOR ACUTE ABDOMINAL DISEASE. Qualifiers - * PATIENT BEING DISCHARGED WITH ANY OF THE FOLLOWING DIAGNOSIS: No VTE patient discharged on overlapping Therapy?: Yes Plan Time Spent: Greater than 30 Minutes - Follow in office 1 week Continues to current medications
[2019-02-01] MEDS: LACTULOSE SYRUP 20 GM/30 ML UDCUP PO SCH (11:07)
[2019-02-01] MEDS: CYANOCOBALAMIN (VITAMIN B-12) 1,000 MCG TABLET PO SCH (11:09)
[2019-02-01] MEDS: DOCUSATE SODIUM 100 MG CAPSULE PO SCH (11:10)
[2019-02-01] MEDS: PANTOPRAZOLE SODIUM 40 MG TABLET.DR PO SCH (11:10)
[2019-02-01] MEDS: METOPROLOL SUCCINATE 25 MG TAB.SR.24H PO SCH (11:10)
[2019-02-01] MEDS: POLYETHYLENE GLYCOL 3350 POWDER 17 GM/1 PACKET PO SCH (11:11)
[2019-02-01] MEDS: CIPROFLOXACIN HCL 500 MG TABLET PO SCH (11:12)
[2019-02-01 12:35] VITALS: BP 104/42
== END 2019-02-01 14:46 | disposition home or self-care (01) | DRG 638 ==
LOC: ER 23:42 → EH 01-26 02:26 → 3S 01-26 04:25
PROVIDERS: ADMIT Internal Medicine; ATTEND Family Medicine
DX: E11.649 Type 2 diabetes mellitus with hypoglycemia without coma (principal); I50.32 Chronic diastolic (congestive) heart failure; N39.0 Urinary tract infection, site not specified; I11.0 Hypertensive heart disease with heart failure; K21.9 Gastro-esophageal reflux disease without esophagitis; E86.0 Dehydration; I35.0 Nonrheumatic aortic (valve) stenosis; B96.5 Pseudomonas (aeruginosa) (mallei) (pseudomallei) as the cause of diseases classified elsewhere; K59.00 Constipation, unspecified; L89.152 Pressure ulcer of sacral region, stage 2; K31.84 Gastroparesis; E66.01 Morbid (severe) obesity due to excess calories; Z68.36 Body mass index [BMI] 36.0-36.9, adult; Z79.84 Long term (current) use of oral hypoglycemic drugs; Z79.899 Other long term (current) drug therapy
CPT/HCPCS: 36415; 51701; 71045; 74018; 74176; 74230; 80048; 80053; 81001; 82962; 84484; 85025; 87040; 87086; 87088; 87186; 93005; 93010; 96374; 96375; 99285; J0696; J0744; J1815; J2405; J3490; J7030

== ENCOUNTER 2019-08-30 06:44 | Emergency (ER) | payer SELFPAY ==
[2019-08-30] MEDS ORDERED: NITROGLYCERIN 0.4 MG/TAB 25 TAB/BOTTLE SL PRN (06:59)
--- NOTE | 2019-08-30 07:05 | ER Document Report ---
ED General - General Stated Complaint: CHEST PAIN Time Seen by Provider: 08/30/19 06:55 Primary Care Provider: MILLICENT ESPINOZA MD [Primary Care Provider] - Follow up as needed TRAVEL OUTSIDE OF THE [place] IN LAST 30 DAYS: No COUNTRY TRAVELED TO/FROM: [place] [facility] Notes: This is a 68-year-old female who presents today with a complaint of substernal chest pain that started this morning. Patient describes the pain as aching, nonradiating. Pain is associated with shortness of breath. She denies any cough or congestion. She denies any nausea or vomiting. The patient is a poor historian. Her daughter is helping with translation. History is a little bit unclear because patient also complains of pain in her knees and legs. She apparently has a history of arthritis for which she takes ibuprofen. It is unclear if there is any new lower extremity pain or not. Patient also has a history of hypertension for which she takes clonidine. She did not take her medication last night because her blood pressure was not elevated. She was given aspirin by EMS. - Related Data Allergies/Adverse Reactions: No Known Allergies Allergy (Verified 05/14/16 04:21) Past Medical History - Social History Smoking Status: Never Smoker Frequency of alcohol use: None Drug Abuse: None Family History: Reviewed & Not Pertinent - Past Medical History Cardiac Medical History: Reports: Hx Congestive Heart Failure, Hx Hypertension, Hx Heart Murmur Denies: Hx Heart Attack Pulmonary Medical History: Denies: Hx Asthma, Hx Bronchitis, Hx COPD, Hx Pneumonia, Hx Tuberculosis Neurological Medical History: Denies: Hx Seizures, Hx Parkinson's Disease Endocrine Medical History: Reports: Hx Diabetes Mellitus Type 2 Renal/ Medical History: Denies: Hx End Stage Renal Disease, Hx Kidney Stones, Hx Peritoneal Dialysis GI Medical History: Reports: Hx Gastroesophageal Reflux Disease - Yes 3 I was looking just cut down to the anal is running is running 110 1. Denies: Hx Cirrhosis, Hx Ulcer Musculoskeletal Medical History: Denies Hx Arthritis, Denies Hx Multiple Sclerosis Psychiatric Medical History: Denies: Hx Bipolar Disorder, Hx Depression, Hx Schizophrenia - Immunizations Hx Pneumococcal Vaccination: 10/22/15 Review of Systems - Review of Systems Cardiovascular: Chest pain Respiratory: Short of breath Gastrointestinal: denies: Abdominal pain Musculoskeletal: Other - Leg pain. denies: Leg swelling -: Yes All other systems reviewed and negative Physical Exam - Vital signs Vitals: Pulse Ox 98 08/30/19 06:57 Interpretation: Hypertensive - General General appearance: Appears well, Alert - Respiratory Respiratory status: No respiratory distress Chest status: Nontender Breath sounds: Rales Chest palpation: Normal - Cardiovascular Rhythm: Regular Murmur: No Systolic murmur grade 1-6: 2 - Pt has a murmur - Abdominal Inspection: Normal Distension: No distension Bowel sounds: Normal Tenderness: Nontender Organomegaly: No organomegaly - Extremities General upper extremity: Normal inspection, Nontender, Normal color, Normal ROM, Normal temperature General lower extremity: Normal inspection, Normal color, Normal ROM, Normal temperature, Other - Is unclear if patient has tenderness or not. She nods YES when I asked if there is pain to the slight palpation of her entire lower legs bilaterally. No obvious difference when I palpate her calf. Could be from misunderstanding/language barrier. Normal distal neurovascular exam of both lower extremities.. No: Peter's sign - Neurological Neuro grossly intact: Yes Cognition: Normal Orientation: AAOx4 [place] Coma Scale Eye Opening: Spontaneous [place] Coma Scale Verbal: Oriented [place] Coma Scale Motor: Obeys Commands [place] Coma Scale Total: 15 Speech: Normal Motor strength normal: LUE, RUE, LLE, RLE Sensory: Normal - Psychological Associated symptoms: Normal affect, Normal mood Course - Re-evaluation Re-evalutation: 08/30/19 07:03 Differential diagnosis includes acute coronary syndrome versus atypical chest pain. Doubt pulmonary embolus or dissection but will get CTA given elevated blood pressure and dyspnea. I think patient's leg pain is probably her chronic pain. However, history is not clear so I will get Doppler ultrasounds to rule out DVT. EKG shows normal sinus rhythm at 68 bpm. Left axis deviation. No acute injury pattern. 08/30/19 08:55 Patient reevaluated. Patient is doing well. Chest x-ray is consistent with CHF. BNP elevated. Creatinine is slightly elevated. I have a good reason for her shortness of breath. Consequently, I will treat her for CHF. Will cancel CT angios especially given elevated creatinine. 08/30/19 10:12 Patient reevaluated. Patient is doing well. Patient's care discussed with her PCP Dr. Espinoza. He notes that patient has moderate to severe aortic stenosis. Patient had an echo done in December which showed that. He advises that patient would need repair of her aortic stenosis as this is likely the cause of his symptoms. He recommends transfer to [facility] 08/30/19 11:13 Patient's care discussed with Dr. Stauffer at the right hand. She accepts transfer. 08/30/19 13:31 Transport team is here to pick patient up. Patient reevaluated. She is hemodynamically stable. She is stable for transfer. - Vital Signs Vital signs: Temp Pulse Resp BP Pulse Ox 98 F 19 159/66 H 100 08/30/19 11:00 08/30/19 13:01 08/30/19 13:01 08/30/19 13:01 - Laboratory Result Diagrams: 08/30/19 07:49 08/30/19 07:49 Laboratory results interpreted by me: 08/30/19 08/30/19 08/30/19 07:49 07:49 07:49 WBC 11.2 H RBC 3.40 L Hgb 9.5 L Hct 28.9 L RDW 14.5 H Lymph % (Auto) 10.7 L Absolute Neuts (auto) 9.3 H Seg Neutrophils % 83.4 H Chloride 111 H Carbon Dioxide 21 L BUN 23 H Creatinine 1.45 H Est GFR ( Amer) 44 L Est GFR (MDRD) Non-Af 36 L Glucose 178 H Creatine Kinase < 20 L NT-Pro-B Natriuret Pep 1090 H Discharge - Discharge Clinical Impression: Precordial chest pain Acute CHF (congestive heart failure) Qualifiers: Heart failure type: unspecified Qualified Code(s): I50.9 - Heart failure, unspecified Aortic stenosis Qualifiers: Cardiac valve disease etiology: etiology unspecified Qualified Code(s): I35.0 - Nonrheumatic aortic (valve) stenosis Condition: Fair Disposition: [facility] Referrals: MILLICENT ESPINOZA MD [Primary Care Provider] - Follow up as needed
--- NOTE | 2019-08-30 07:52 | RADIOLOGY REPORT (SQ) ---
EXAM DESCRIPTION: XR CHEST 1 VIEW COMPLETED DATE/TME: 08/30/2019 00:00 CLINICAL HISTORY: 68 years Female, chest pain COMPARISON: One day prior. NUMBER OF VIEWS/TECHNIQUE: 1/AP FINDINGS: Moderate interstitial opacities. Mild central edema pattern. Mildly enlarged cardiac silhouette. No pneumothorax. Stable bony thorax. IMPRESSION: Mild CHF pattern. Interval worsening.
[2019-08-30 08:09] LABS: ABSOLUTE BASOPHILS # (AUTO) 0.1 10^3/uL (0.0-0.2); ABSOLUTE EOSINOPHILS # (AUTO) 0.3 10^3/uL (0.0-0.6); ABSOLUTE LYMPHOCYTES (AUTO) 1.2 10^3/uL (0.5-4.7); ABSOLUTE MONOCYTES (AUTO) 0.4 10^3/uL (0.1-1.4); ABSOLUTE NEUT (AUTO) 9.3 10^3/uL (1.7-8.2); BASOPHILS % (AUTO) 0.5 % (0-2); EOSINOPHILS % (AUTO) 2.2 % (0-6); HEMATOCRIT 28.9 % (36.0-47.0); HEMOGLOBIN 9.5 g/dL (12.0-15.5); LYMPHOCYTES % (AUTO) 10.7 % (13-45); MEAN CORPUSCULAR HGB CONC 32.9 g/dL (32.0-36.0); MEAN CORPUSCULAR VOLUME 85 fl (80-97); MONOCYTES % (AUTO) 3.2 % (3-13); PLATELET COUNT 267 10^3/uL (150-450); RED CELL DISTRIBUTION WIDTH 14.5 % (11.5-14.0); SEGMENTED NEUTROPHILS % (AUTO) 83.4 % (42-78); TOTAL CELLS COUNTED % (AUTO) 100 %; WHITE BLOOD COUNT 11.2 10^3/uL (4.0-10.5)
[2019-08-30 08:25] LABS: ALBUMIN 3.9 g/dL (3.5-5.0); ALKALINE PHOSPHATASE 107 U/L (38-126); ANION GAP 11 (5-19); ASPARTATE AMINO TRANSFERASE 15 U/L (14-36); BILIRUBIN,DIRECT 0.2 mg/dL (0.0-0.4); BILIRUBIN,TOTAL 0.4 mg/dL (0.2-1.3); BLOOD UREA NITROGEN 23 mg/dL (7-20); CALCIUM 9.4 mg/dL (8.4-10.2); CARBON DIOXIDE 21 mmol/L (22-30); CHLORIDE 111 mmol/L (98-107); GLUCOSE 178 mg/dL (75-110); POTASSIUM 4.5 mmol/L (3.6-5.0); TOTAL PROTEIN 7.6 g/dL (6.3-8.2)
[2019-08-30 08:26] LABS: CREATINE KINASE < 20 U/L (30-135)
[2019-08-30 08:37] LABS: CREATINE KINASE MB 0.66 ng/mL (<4.55)
[2019-08-30 08:38] LABS: TROPONIN I < 0.012 ng/mL
[2019-08-30] MEDS ORDERED: FUROSEMIDE INJ/PF 20 MG/2 ML SDV IV ONE (08:55)
[2019-08-30] MEDS ORDERED: FUROSEMIDE INJ/PF 40 MG/4 ML SDV ONE (09:27)
[2019-08-30] MEDS ORDERED: FUROSEMIDE INJ/PF 40 MG/4 ML SDV IV ONE (09:28)
[2019-08-30 13:36] VITALS: BP 177/67
--- NOTE | 2019-08-30 17:36 | XCELERA REPORT ---
[address] [facility] [address] Lower Extremity Venous Evaluation Procedure: Color flow and duplex imaging bilaterally of the veins of the lower extremities as well as the Common Femoral veins. Right Sided Venous Evaluation Normal vessel filling wall to wall, compression and augmentation as well as Colour flow down to the infrageniculate veins. Left Sided Venous Evaluation Normal vessel filling wall to wall, compression and augmentation as well as Colour flow down to the infrageniculate veins. Interpretation Summary No duplex evidence of DVT or obstruction in the bilateral lower extremities. Name: GUIDO GARCIA Age: 68 yrs Gender: Female : 1950 Patient Status: Emergency Patient Location: ER Study Date: 08/30/2019 09:22 AM Reason For Study: leg pain Ordering Physician: EMMA COLBY Performed By: Mary Jane Chowdhury : EMMA COLBY > Jonnathan Olsen
--- NOTE | 2019-08-30 22:07 | EKG REPORT ---
SEVERITY:- ABNORMAL ECG - SINUS RHYTHM LEFT AXIS DEVIATION ABNRM R PROG, CONSIDER ASMI OR LEAD PLACEMENT : Confirmed by: Pippa Magana 30-Aug-2019 22:06:59
== END 2019-08-30 13:40 | disposition short-term general hospital (02) ==
LOC: ER 06:44
DX: I35.0 Nonrheumatic aortic (valve) stenosis (principal); R07.9 Chest pain, unspecified; R06.02 Shortness of breath; I50.9 Heart failure, unspecified; I11.0 Hypertensive heart disease with heart failure; E11.9 Type 2 diabetes mellitus without complications
CPT/HCPCS: 93005; 99285; 96374; 82553; 36415; 82550; 85025; 80053; 84484; 83880; 93970 ×2; 71045; 93010; J1940

== ENCOUNTER 2020-07-14 12:59 | Emergency (ER) | payer SELFPAY ==
--- NOTE | 2020-07-14 13:45 | ER Document Report ---
ED General - General Chief Complaint: Chest Pain Stated Complaint: CHEST PAIN Primary Care Provider: MILLICENT ESPINOZA MD [Primary Care Provider] - Follow up as needed Information source: Patient, Dr. Alamo Notes: Patient is a 69-year-old female presenting to the emergency department via EMS chief complaint of stomach discomfort from gas and decreased appetite. Patient states is been ongoing for quite some time. She has had decreased oral intake. Patient also reports nausea. On further review of the patient's medical records patient was recently discharged from [facility] yesterday 13 July. On 30 June the patient had a cervical laminectomy of C3-C6. During her stay patient was hypotensive and was found to have a urinary tract infection, because of this the patient had normal troponin and the lab work was essentially negative/normal. There is a language barrier with the patient and the conference services manager line was used to speak to the patient. TRAVEL OUTSIDE OF THE [place] IN LAST 30 DAYS: No - HPI Onset: Last week Onset/Duration: Intermittent, Worse Quality of pain: Achy, Pressure Severity: Moderate Pain Level: 3 Associated symptoms: Nausea, Weakness Exacerbated by: Denies Relieved by: Denies Similar symptoms previously: Yes Recently seen / treated by doctor: Yes - Related Data Allergies/Adverse Reactions: No Known Allergies Allergy (Verified 05/14/16 04:21) Past Medical History - General Information source: Patient, Dr. Alamo, [facility] - Social History Smoking Status: Unknown if Ever Smoked Chew tobacco use (# tins/day): No Frequency of alcohol use: None Drug Abuse: None Lives with: Family Family History: Reviewed & Not Pertinent Patient has suicidal ideation: No Patient has homicidal ideation: No - Past Medical History Cardiac Medical History: Reports: Hx Congestive Heart Failure, Hx Hypertension, Hx Heart Murmur Denies: Hx Heart Attack Pulmonary Medical History: Denies: Hx Asthma, Hx Bronchitis, Hx COPD, Hx Pneumonia, Hx Tuberculosis Neurological Medical History: Denies: Hx Seizures, Hx Parkinson's Disease Endocrine Medical History: Reports: Hx Diabetes Mellitus Type 2 Renal/ Medical History: Denies: Hx End Stage Renal Disease, Hx Kidney Stones, Hx Peritoneal Dialysis GI Medical History: Reports: Hx Gastroesophageal Reflux Disease - Yes 3 I was looking just cut down to the anal is running is running 110 1. Denies: Hx Cirrhosis, Hx Ulcer Musculoskeletal Medical History: Denies Hx Arthritis, Denies Hx Multiple Sclerosis Psychiatric Medical History: Denies: Hx Bipolar Disorder, Hx Depression, Hx Schizophrenia - Immunizations Hx Pneumococcal Vaccination: 10/22/15 Review of Systems - Review of Systems Notes: REVIEW OF SYSTEMS: CONSTITUTIONAL : Denies fever, chills, or sweats. Denies recent illness. EENT: Denies eye, ear, throat, or mouth pain or symptoms. Denies nasal or sinus congestion. CARDIOVASCULAR: Per HPI RESPIRATORY: Denies cough, cold, or chest congestion. Denies shortness of breath, difficulty breathing, or wheezing. GASTROINTESTINAL: Per HPI GENITOURINARY: Denies difficulty urinating, painful urination, burning, frequency, or blood in urine. MUSCULOSKELETAL: Denies neck or back pain or joint pain or swelling. SKIN: Denies rash or skin lesions. HEMATOLOGIC : Denies easy bruising or bleeding. NEUROLOGICAL: Denies altered mental status or loss of consciousness. Denies headache. Denies weakness or paralysis or loss of use of either side. Denies problems with gait or speech. Denies sensory or motor loss. PSYCHIATRIC: Denies suicidal or homicidal ideations 10 Systems are negative unless otherwise specified above Physical Exam - Vital signs Vitals: Resp Pulse Ox 20 99 07/14/20 13:38 07/14/20 13:38 - Notes Notes: PHYSICAL EXAMINATION: GENERAL: Patient is a 69-year-old female presenting to the emergency department for nausea and chest pain. HEAD: Atraumatic, normocephalic. EYES: Pupils equal round and reactive to light, extraocular movements intact, sclera anicteric, conjunctiva are normal. ENT: nares patent, oropharynx clear without exudates. Moist mucous membranes. NECK: Normal range of motion, supple without lymphadenopathy, no appreciable JVD LUNGS: Lungs clear to auscultation bilaterally and equal. No wheezes rales or rhonchi. HEART: Regular rate and rhythm without murmurs ABDOMEN: Soft, obese, minimally diffusely tender, normal bowel sounds. No guarding, no rebound. No masses appreciated. EXTREMITIES: Active full range of motion, no pitting or edema. No cyanosis. 2+ pulses x4 NEUROLOGICAL: No focal neurological deficits. Moves all extremities spontaneously and on command. SKIN: Warm, Dry, and intact. Normal turgor, no rashes or lesions noted. Course - Re-evaluation Re-evalutation: 07/14/20 21:40 On presentation to the emergency department IV access was obtained and laboratory EKG and radiologic studies were ordered. This was accomplished after being able to speak to the patient via the pricing actuary line. Acute abdominal series does not demonstrate any sign of acute pathology there is no signs of ileus or bowel obstruction Chest x-ray shows bilateral pleural effusion and vascular congestion. Patient's lab work does demonstrate however obvious elevation in troponin and BNP. After speaking with the hospitalist they requested because of some EKG changes that I speak to cardiology on-call. I did speak with Dr. Hassan who felt that the EKG did not have significant changes compared to prior EKG of September 2019 however after reviewing the patient's laboratory studies that were obtained at [facility], he felt that the patient has new elevation in troponin and BNP compared to 2 days ago and feels that the patient might be better served by returning to that facility for further evaluation and management. I did speak with Dr. Tamia Odonnell Cardiology senior information security consultant and discussed the case with him at this point in time he is agreeable with accepting the patient in transfer however there are no beds available at that facility. A repeat troponin does show a slight increase to 1.060. While in the emergency department the patient has received aspirin per protocol 1/2 inch of nitroglycerin paste to the anterior chest wall and 40 mg IV Lasix for management of CHF. I have spoken to the patient multiple times and reevaluated her condition. I did speak with patient and a family friend who was gracious to speak to the patient in her [place] language patient is agreeable with waiting for transfer understands the need for same. I have spoken with the both the hospitalist and behavioral assistant locally as well as the behavioral assistant at receiving facility several times in regards to this patient's care. Patient remained stable at this time. 07/14/20 21:44 07/14/20 21:47 - Vital Signs Vital signs: Temp Pulse Resp BP Pulse Ox 22 H 111/64 100 07/14/20 20:01 07/14/20 20:00 07/14/20 20:01 - Laboratory Result Diagrams: 07/14/20 13:45 07/14/20 13:45 Laboratory results interpreted by me: 07/14/20 07/14/20 07/14/20 13:45 13:45 13:45 RBC 3.61 L Hgb 10.8 L Hct 32.2 L RDW 14.2 H Lymph % (Auto) 9.8 L Absolute Neuts (auto) 8.3 H Seg Neutrophils % 81.5 H Potassium 5.1 H Carbon Dioxide 19 L Creatinine 2.04 H Est GFR ( Amer) 29 L Est GFR (MDRD) Non-Af 24 L Glucose 128 H Direct Bilirubin 0.6 H NT-Pro-B Natriuret Pep 16938 H Albumin 3.3 L - Diagnostic Test Radiology reviewed: Reports reviewed - EKG Interpretation by Me EKG shows normal: Sinus rhythm Rate: Normal Rhythm: NSR When compared to previous EKG there are: Changes noted Additional EKG results interpreted by me: 07/14/20 16:29 Repeat EKG obtained at 1542 hrs. shows sinus rhythm with a PVC otherwise morphology is basically the same as prior EKG today. Critical Care Note - Critical Care Note Total time excluding time spent on procedures (mins): 55 Comments: Please allow 55 minutes of critical care time spent obtaining history from patient or surrogate, discussions with consultants, development of treatment brianna n with patient or surrogate, evaluation of patient's response to treatment, examination of patient. This also includes ordering and reviewing laboratory, EKG and / or radiologic studies, performing and reassessing treatments and interventions as well as reviewing previous visits and old charts. This is exclusive of separately billable procedures. Discharge - Discharge Clinical Impression: Renal insufficiency, Elevated troponin I level, Nausea Obesity Qualifiers: Obesity type: unspecified obesity type Obesity classification: unspecified obesity classification Serious obesity comorbidity presence: with serious comorbidity Qualified Code(s): E66.9 - Obesity, unspecified Congestive heart failure Qualifiers: Heart failure type: unspecified Heart failure chronicity: acute on chronic Qualified Code(s): I50.9 - Heart failure, unspecified Condition: Stable Disposition: [facility] Referrals: MILLICENT ESPINOZA MD [Primary Care Provider] - Follow up as needed
[2020-07-14] MEDS ORDERED: ONDANSETRON HCL INJ/PF 4 MG/2 ML SDV IV ONE ×2 (14:09→16:27)
[2020-07-14 14:22] LABS: ABSOLUTE BASOPHILS # (AUTO) 0.1 10^3/uL (0.0-0.2); ABSOLUTE EOSINOPHILS # (AUTO) 0.3 10^3/uL (0.0-0.6); ABSOLUTE MONOCYTES (AUTO) 0.5 10^3/uL (0.1-1.4); ABSOLUTE NEUT (AUTO) 8.3 10^3/uL (1.7-8.2); BASOPHILS % (AUTO) 0.7 % (0-2); HEMATOCRIT 32.2 % (36.0-47.0); HEMOGLOBIN 10.8 g/dL (12.0-15.5); LYMPHOCYTES % (AUTO) 9.8 % (13-45); MEAN CORPUSCULAR HGB CONC 33.7 g/dL (32.0-36.0); MEAN CORPUSCULAR VOLUME 89 fl (80-97); PLATELET COUNT 327 10^3/uL (150-450); RED BLOOD COUNT 3.61 10^6/uL (3.72-5.28); RED CELL DISTRIBUTION WIDTH 14.2 % (11.5-14.0); SEGMENTED NEUTROPHILS % (AUTO) 81.5 % (42-78); TOTAL CELLS COUNTED % (AUTO) 100 %; WHITE BLOOD COUNT 10.2 10^3/uL (4.0-10.5)
[2020-07-14 14:40] LABS: ALBUMIN 3.3 g/dL (3.5-5.0); ALKALINE PHOSPHATASE 115 U/L (38-126); ANION GAP 13 (5-19); ASPARTATE AMINO TRANSFERASE 23 U/L (14-36); BILIRUBIN,DIRECT 0.6 mg/dL (0.0-0.4); BILIRUBIN,TOTAL 0.7 mg/dL (0.2-1.3); BLOOD UREA NITROGEN 20 mg/dL (7-20); CALCIUM 8.8 mg/dL (8.4-10.2); CARBON DIOXIDE 19 mmol/L (22-30); CHLORIDE 107 mmol/L (98-107); GLUCOSE 128 mg/dL (75-110); POTASSIUM 5.1 mmol/L (3.6-5.0); TOTAL PROTEIN 6.4 g/dL (6.3-8.2)
--- NOTE | 2020-07-14 14:45 | EKG REPORT ---
SEVERITY:- ABNORMAL ECG - SINUS RHYTHM LEFT BUNDLE BRANCH BLOCK : Confirmed by: Loraine Hassan MD 14-Jul-2020 14:44:42
[2020-07-14 14:52] LABS: CREATINE KINASE MB 3.77 ng/mL (<4.55)
[2020-07-14 14:55] LABS: TROPONIN I 1.04 ng/mL
--- NOTE | 2020-07-14 15:24 | RADIOLOGY REPORT (SQ) ---
EXAM DESCRIPTION: CERV SP 4 OR 5 VIEWS IMAGES COMPLETED DATE/TIME: 07/14/2020 3:11 pm REASON FOR STUDY: pain COMPARISON: None. NUMBER OF VIEWS: Five views. TECHNIQUE: AP, lateral, obliques and odontoid radiographic images acquired of the cervical spine. LIMITATIONS: Study is limited. Patient did not understand verbal commands. FINDINGS: MINERALIZATION: Normal. ALIGNMENT: Straightening of the normal cervical lordosis. VERTEBRAE: Vertebral bodies of normal height. DISCS: Mild multilevel disc space narrowing. Inadequate visualization of lower cervical spine. FORAMINA: Inadequately visualized. LATERAL AND POSTERIOR ELEMENTS: Facets, lateral masses and spinous processes without significant find ings. HARDWARE: None in the spine. SOFT TISSUES: No masses or calcifications. Lung apices clear. OTHER: No other significant finding. IMPRESSION: Very limited study with inadequate visualization of the lower cervical spine. Mild disc space narrowing at C5-C6. TECHNICAL DOCUMENTATION: JOB ID: [id number] 2010 [employer]- All Rights Reserved Reading location - IP/workstation name: [email or web address]
--- NOTE | 2020-07-14 15:26 | RADIOLOGY REPORT (SQ) ---
EXAM DESCRIPTION: ACUTE ABDOMEN SERIES IMAGES COMPLETED DATE/TIME: 07/14/2020 3:11 pm REASON FOR STUDY: pain COMPARISON: Chest x-ray dated 10/08/2019, KUB dated 01/30/2019 NUMBER OF VIEWS: Three views. TECHNIQUE: Frontal chest, supine abdomen and upright/decubitus abdomen radiographic images acquired. LIMITATIONS: None. FINDINGS: CHEST: Bilateral interstitial airspace disease and small effusions. Stable cardiomegaly. There is central vascular congestion. FREE AIR: None. No abnormal gas collections. BOWEL GAS PATTERN: Nonobstructive pattern. No dilated loops or air fluid levels. CALCIFICATIONS: No suspicious calcifications. HARDWARE: None in the abdomen. SOFT TISSUES: No gross mass or suggestion of organomegaly. BONES: No acute fracture. No worrisome bone lesions. OTHER: Aortic stent valve is noted. This has been placed since prior chest film. IMPRESSION: 1. Probable vascular congestion with small bilateral pleural effusions. This is new fro m prior study. 2. Nonspecific gas pattern. TECHNICAL DOCUMENTATION: JOB ID: [id number] 2010 [employer]- All Rights Reserved Reading location - IP/workstation name: [email or web address]
[2020-07-14] MEDS ORDERED: NITROGLYCERIN 2% OINTMENT 1 GM PACKET TP ONE (16:26)
[2020-07-14] MEDS ORDERED: FUROSEMIDE INJ/PF 40 MG/4 ML SDV IV ONE (16:26)
[2020-07-14] MEDS ORDERED: ASPIRIN 325 MG TABLET PO ONE (16:26)
--- NOTE | 2020-07-14 19:18 | EKG REPORT ---
SEVERITY:- ABNORMAL ECG - SINUS RHYTHM LBBB : Confirmed by: Loraine Hassan MD 14-Jul-2020 19:18:06
--- NOTE | 2020-07-14 23:46 | ER Document Report ---
Doctor's Note Notes: 07/14/20 23:45 Noted that patient was hypotensive, 80s/50s, map >65, and new tachycardia to 120s 130s on monitor. I went to reassess the patient, she is alert and sitting up in bed, she attempts to communicate in her [place] tongue. She had a nitro patch on, I had nursing remove this as potentially could be attributing to her hypo-tension. Looks concerning for A. fib on the monitor, repeat EKG ordered. Patient has her med list from [facility] discharge summary, there are no beta- derek or calcium channel derek listed, med list is relatively benign. 07/15/20 00:00 Repeat EKG obtained interpreted by me. She now appears to be in atrial fibrillation, with ventricular rate 127. QTc is now shorter. This is a change from her previous. Per the monitor patient rate has decreased, she is bouncing between 110s to low 120s, will continue to monitor briefly and consider antiarrhythmic medications if this persists. 07/15/20 00:05 BP has improved, 94/64 07/15/20 00:12 HR remains variable 110s-120s 07/15/20 01:13 Blood pressure has improved 101/62, heart rate 110-low 120s 07/15/20 01:28 Given that heart rate has remained persistent and blood pressure has improved, feel it is reasonable to start oral antiarrhythmic medication at this time. Will trial metoprolol. Per her old med list she was on this previously. 07/15/20 03:27 Heart rate now in 70s 07/15/20 06:05 Heart rate remains in 60s, current blood pressure 92/50. Care to be turned over to day team. Pending transfer to [facility]
[2020-07-14] MEDS ORDERED: DEXTROSE 40% GEL 15 GM TUBE PO PRN ×2 (23:51)
[2020-07-14] MEDS ORDERED: DEXTROSE 50%-WATER 25 GM/50 ML DISP.SYRIN IV PRN ×2 (23:51)
[2020-07-14] MEDS ORDERED: GLUCAGON,HUMAN RECOMB 1 MG INJ IM PRN (23:51)
[2020-07-15] MEDS: METOPROLOL TARTRATE 25 MG TABLET PO SCH ×2 (03:21→10:25)
[2020-07-15] MEDS: INSULIN LISPRO 100 UNIT/ML 3 ML VIAL SUBCUT SCH ×3 (03:22→12:22)
[2020-07-15] MEDS ORDERED: HEPARIN SODIUM,PORCINE/D5W 25,000 UNIT/250 ML RTUINJ IV PRN (06:22)
--- NOTE | 2020-07-15 08:32 | EKG REPORT ---
SEVERITY:- ABNORMAL ECG - ATRIAL FIBRILLATION LEFT BUNDLE BRANCH BLOCK : Confirmed by: Loraine Hassan MD 15-Jul-2020 08:31:45
[2020-07-15] MEDS ORDERED: HEPARIN SOD (PORCINE) 1,000 UNIT/ML 10 ML VIAL IV PRN (09:22)
[2020-07-15] MEDS ORDERED: GABAPENTIN 100 MG CAPSULE PO SCH (10:00)
[2020-07-15] MEDS ORDERED: MULTIVITAMIN TABLET PO SCH (10:00)
[2020-07-15] MEDS ORDERED: FERROUS SULFATE 325 MG TABLET PO SCH (10:00)
[2020-07-15] MEDS ORDERED: DOCUSATE SODIUM 100 MG CAPSULE PO SCH (10:00)
[2020-07-15] MEDS ORDERED: SITAGLIPTIN PHOSPHATE 50 MG TABLET PO SCH (10:00)
--- NOTE | 2020-07-15 17:03 | ER Document Report ---
Doctor's Note Notes: 07/15/20 17:02 Transport is here for the patient. It appears the entire form was not filled out last night, so was filled out with the accepting physician that was listed in the notes made by Dr. Hill. At this time the patient appears to be back in a sinus rhythm with a blood pressure of about 170 systolic and a heart rate of 76. She is alert in no acute distress. She is stable for transfer.
[2020-07-15 17:18] VITALS: BP 111/46
== END 2020-07-15 17:08 | disposition short-term general hospital (02) ==
LOC: ER 12:59
DX: R79.89 Other specified abnormal findings of blood chemistry (principal); N28.9 Disorder of kidney and ureter, unspecified; I50.9 Heart failure, unspecified; E66.9 Obesity, unspecified; R07.9 Chest pain, unspecified; R11.0 Nausea; R53.1 Weakness; I11.0 Hypertensive heart disease with heart failure; E11.9 Type 2 diabetes mellitus without complications
CPT/HCPCS: 93005; 96376; 99291; 96375; 96365; 96366; 36415; 82553; 82962; 83690; 83735; 85025; 85730; 80053; 84484; 83880; 74022; 72050; 93010; J1644; J1940; J2405

== ENCOUNTER 2020-07-23 09:35 | Emergency (ER) | payer SELFPAY ==
[2020-07-23] MEDS ORDERED: ONDANSETRON HCL INJ/PF 4 MG/2 ML SDV IV ONE (10:55)
[2020-07-23] MEDS ORDERED: FAMOTIDINE INJ/PF 20 MG/2 ML SDV IV ONE (10:55)
[2020-07-23] MEDS ORDERED: NORMAL SALINE 1000 ML 1,000 ML IV ONE (10:56)
[2020-07-23 11:53] LABS: ALBUMIN 3.8 g/dL (3.5-5.0); ALKALINE PHOSPHATASE 88 U/L (38-126); ANION GAP 10 (5-19); ASPARTATE AMINO TRANSFERASE 23 U/L (14-36); BILIRUBIN,DIRECT 0.4 mg/dL (0.0-0.4); BILIRUBIN,TOTAL 0.6 mg/dL (0.2-1.3); BLOOD UREA NITROGEN 14 mg/dL (7-20); CARBON DIOXIDE 31 mmol/L (22-30); CHLORIDE 99 mmol/L (98-107); GLUCOSE 179 mg/dL (75-110); POTASSIUM 4.6 mmol/L (3.6-5.0); TOTAL PROTEIN 7.5 g/dL (6.3-8.2)
--- NOTE | 2020-07-23 11:54 | RADIOLOGY REPORT (SQ) ---
EXAM DESCRIPTION: ACUTE ABDOMEN SERIES IMAGES COMPLETED DATE/TIME: 07/23/2020 11:45 am REASON FOR STUDY: abd pain/vomiting COMPARISON: 07/14/2020 NUMBER OF VIEWS: Three views. TECHNIQUE: Frontal chest, supine abdomen and upright/decubitus abdomen radiographic images acquired. LIMITATIONS: None. FINDINGS: CHEST: Lungs clear of infiltrates. Enlarged cardiac silhouette, stable. No pneumothorax. FREE AIR: None. No abnormal gas collections. BOWEL GAS PATTERN: Nonobstructive pattern. No dilated loops or air fluid levels. CALCIFICATIONS: No suspicious calcifications. HARDWARE: Aortic valvular prostheses. SOFT TISSUES: Vascular calcifications. BONES: No acute fracture. No worrisome bone lesions. OTHER: Obesity. IMPRESSION: 1. No evidence of intestinal obstruction or other acute intra-abdominal/pelvic process. 2. Stable cardiomegaly without evidence of acute intrathoracic process. TECHNICAL DOCUMENTATION: JOB ID: [id number] 2010 [employer]- All Rights Reserved Reading location - IP/workstation name: [email or web address]
--- NOTE | 2020-07-23 12:19 | ER Document Report ---
ED General - General Chief Complaint: Nausea/Vomiting Stated Complaint: VOMITING Time Seen by Provider: 07/23/20 10:21 Primary Care Provider: MILLICENT ESPINOZA MD [Primary Care Provider] - Follow up as needed Mode of Arrival: Ambulatory Information source: Patient - via collator Notes: 69-year-old female patient presenting to the emergency department concerns for vomiting that began this morning at around 4:00. She has apparently vomited 4 times. She denies any abdominal pain. She has not had fever, chills or diarrhea. She reports she had normal bowel movement yesterday. There is a language barrier, she will need to have collator via [employer]. There is no family present with her. TRAVEL OUTSIDE OF THE [place] IN LAST 30 DAYS: No - Related Data Allergies/Adverse Reactions: No Known Allergies Allergy (Verified 05/14/16 04:21) Past Medical History - General Information source: Patient - Via collator - Social History Smoking Status: Unknown if Ever Smoked Family History: Reviewed & Not Pertinent - Past Medical History Cardiac Medical History: Reports: Hx Congestive Heart Failure, Hx Hypertension, Hx Heart Murmur Denies: Hx Heart Attack Pulmonary Medical History: Denies: Hx Asthma, Hx Bronchitis, Hx COPD, Hx Pneumonia, Hx Tuberculosis Neurological Medical History: Denies: Hx Seizures, Hx Parkinson's Disease Endocrine Medical History: Reports: Hx Diabetes Mellitus Type 2 Renal/ Medical History: Denies: Hx End Stage Renal Disease, Hx Kidney Stones, Hx Peritoneal Dialysis GI Medical History: Reports: Hx Gastroesophageal Reflux Disease - Yes 3 I was looking just cut down to the anal is running is running 110 1. Denies: Hx Cirrhosis, Hx Ulcer Musculoskeletal Medical History: Denies Hx Arthritis, Denies Hx Multiple Sclerosis Psychiatric Medical History: Denies: Hx Bipolar Disorder, Hx Depression, Hx Schizophrenia - Immunizations Hx Pneumococcal Vaccination: 10/22/15 Review of Systems - Review of Systems Constitutional: No symptoms reported EENT: No symptoms reported Cardiovascular: No symptoms reported Respiratory: No symptoms reported Gastrointestinal: Nausea, Vomiting Genitourinary: No symptoms reported Female Genitourinary: No symptoms reported Musculoskeletal: No symptoms reported Skin: No symptoms reported Hematologic/Lymphatic: No symptoms reported Neurological/Psychological: No symptoms reported Physical Exam - Vital signs Vitals: Temp Pulse Resp BP Pulse Ox 98.5 F 88 18 137/65 H 99 07/23/20 09:54 07/23/20 09:54 07/23/20 09:54 07/23/20 09:54 07/23/20 09:54 - Notes Notes: PHYSICAL EXAMINATION: GENERAL: Well-appearing, well-nourished and in no acute distress. HEAD: Atraumatic, normocephalic. EYES: Pupils equal round and reactive to light, extraocular movements intact, conjunctiva are normal. ENT: Nares patent, oropharynx clear without exudates. Moist mucous membranes. NECK: Normal range of motion, supple without lymphadenopathy LUNGS: Breath sounds clear to auscultation bilaterally and equal. No wheezes rales or rhonchi. HEART: Regular rate and rhythm without murmurs ABDOMEN: Soft, nontender, nondistended abdomen. No guarding, no rebound. No masses appreciated. Female : deferred Musculoskeletal: Normal range of motion, no pitting or edema. No cyanosis. NEUROLOGICAL: Cranial nerves grossly intact. Normal sensory, motor exams PSYCH: Normal mood, normal affect. SKIN: Warm, Dry, normal turgor, no rashes or lesions noted. Course - Re-evaluation Re-evalutation: Patient appears well, nontoxic. Upon review of her OM records she does have a history of CHF, hypertension diabetes. Labs pending. Patient was interviewed using the [employer] translation system. Patient does have a mildly elevated creatinine however it is at her baseline. The rest of her work-up today has been reassuring. Her abdomen is soft, nontender. She has had no episodes of vomiting here today. She likely has a viral illness. We do need a urine however and the nurses are working on this. 07/23/20 15:09 Urine has still not been provided or collected. I did call and speak with the nursing staff regarding this. They will attempt to get the urine now if not they have been given permission to cath the patient. Once we have urine back we should be able to disposition the patient likely discharge home. Urinalysis is consistent for the urinary tract infection. Patient was given a gram of ceftriaxone IV here in the emergency department. Urine culture is pending. Prescription sent in for Zofran and cephalexin. - Vital Signs Vital signs: Temp Pulse Resp BP Pulse Ox 98.5 F 82 16 124/55 L 95 07/23/20 16:02 07/23/20 16:02 07/23/20 16:02 07/23/20 16:02 07/23/20 16:02 - Laboratory Result Diagrams: 07/23/20 12:55 07/23/20 12:55 Laboratory results interpreted by me: 07/23/20 07/23/20 07/23/20 11:15 12:55 12:55 RBC 3.59 L Hgb 10.5 L Hct 31.6 L Carbon Dioxide 31 H Creatinine 1.47 H 1.39 H Est GFR ( Amer) 43 L 46 L Est GFR (MDRD) Non-Af 35 L 38 L Glucose 179 H 131 H Albumin 3.4 L Lipase 382.0 H Urine Protein Urine Ketones Ur Leukocyte Esterase Urine Ascorbic Acid 07/23/20 15:40 RBC Hgb Hct Carbon Dioxide Creatinine Est GFR ( Amer) Est GFR (MDRD) Non-Af Glucose Albumin Lipase Urine Protein 30 H Urine Ketones TRACE H Ur Leukocyte Esterase LARGE H Urine Ascorbic Acid 20 H Discharge - Discharge Clinical Impression: Nausea and vomiting Qualifiers: Vomiting type: unspecified Vomiting Intractability: unspecified Qualified Code(s): R11.2 - Nausea with vomiting, unspecified UTI (urinary tract infection) Qualifiers: Urinary tract infection type: site unspecified Hematuria presence: without hematuria Qualified Code(s): N39.0 - Urinary tract infection, site not specified Condition: Stable Disposition: HOME, SELF-CARE Additional Instructions: Your work-up today was reassuring. Your urine did show evidence of urinary tract infection. Please take the antibiotics as prescribed. Please drink plen ty of fluids. Take the Zofran as prescribed for nausea and vomiting. Please follow-up with Dr. Espinoza's office next week, call them for an appointment on Sunday. Let them know you were seen in the emergency department and need a follow-up. Return to the emergency department with new or worsening symptoms to include development of fever greater than 101, persistent vomiting or any other concerning symptom. Prescriptions: Cephalexin [Keflex] 500 mg PO BID #14 capsule Ondansetron [Zofran Odt 4 mg Tablet] 1 - 2 tab PO Q4H PRN #15 tab.rapdis PRN Reason: For Nausea/Vomiting Referrals: MILLICENT ESPINOZA MD [Primary Care Provider] - Follow up as needed
[2020-07-23 13:10] LABS: ABSOLUTE BASOPHILS # (AUTO) 0.1 10^3/uL (0.0-0.2); ABSOLUTE EOSINOPHILS # (AUTO) 0.2 10^3/uL (0.0-0.6); ABSOLUTE LYMPHOCYTES (AUTO) 1.2 10^3/uL (0.5-4.7); ABSOLUTE MONOCYTES (AUTO) 0.4 10^3/uL (0.1-1.4); ABSOLUTE NEUT (AUTO) 5.7 10^3/uL (1.7-8.2); BASOPHILS % (AUTO) 0.9 % (0-2); EOSINOPHILS % (AUTO) 2.1 % (0-6); HEMATOCRIT 31.6 % (36.0-47.0); HEMOGLOBIN 10.5 g/dL (12.0-15.5); MEAN CORPUSCULAR HEMOGLOBIN 29.2 pg (27.0-33.4); MEAN CORPUSCULAR HGB CONC 33.2 g/dL (32.0-36.0); MEAN CORPUSCULAR VOLUME 88 fl (80-97); MONOCYTES % (AUTO) 5.5 % (3-13); PLATELET COUNT 302 10^3/uL (150-450); RED BLOOD COUNT 3.59 10^6/uL (3.72-5.28); RED CELL DISTRIBUTION WIDTH 13.9 % (11.5-14.0); SEGMENTED NEUTROPHILS % (AUTO) 75.5 % (42-78); TOTAL CELLS COUNTED % (AUTO) 100 %; WHITE BLOOD COUNT 7.6 10^3/uL (4.0-10.5)
[2020-07-23 13:40] LABS: ALBUMIN 3.4 g/dL (3.5-5.0); ALKALINE PHOSPHATASE 86 U/L (38-126); ANION GAP 9 (5-19); ASPARTATE AMINO TRANSFERASE 18 U/L (14-36); BILIRUBIN,DIRECT 0.4 mg/dL (0.0-0.4); BILIRUBIN,TOTAL 0.5 mg/dL (0.2-1.3); BLOOD UREA NITROGEN 13 mg/dL (7-20); CALCIUM 8.6 mg/dL (8.4-10.2); CARBON DIOXIDE 29 mmol/L (22-30); CHLORIDE 103 mmol/L (98-107); GLUCOSE 131 mg/dL (75-110); POTASSIUM 4.2 mmol/L (3.6-5.0); TOTAL PROTEIN 6.4 g/dL (6.3-8.2)
[2020-07-23 16:03] VITALS: BP 124/55
[2020-07-23 16:17] LABS: APPEARANCE,URINE CLOUDY; BILIRUBIN,URINE NEGATIVE (NEGATIVE); COLOR,URINE YELLOW; GLUCOSE, URINE NEGATIVE (NEGATIVE); KETONES,URINE TRACE mg/dL (NEGATIVE); LEUKOCYTE ESTERASE,URINE LARGE (NEGATIVE); NITRITE,URINE NEGATIVE (NEGATIVE); PROTEIN,URINE 30 mg/dL (NEGATIVE); UROBILINOGEN,URINE NEGATIVE mg/dL (<2.0)
[2020-07-23] MEDS ORDERED: CEFTRIAXONE 1 GM/D5W RTU 50 ML IV ONE (16:45)
[2020-07-23] MEDS ORDERED: CEFTRIAXONE 1 GM/D5W RTU 1 GM/50 ML RTUPB IV ONE (17:00)
[2020-07-23] MEDS ORDERED: CEFTRIAXONE RTU 1 GM/D5W 50 ML IV ONE (17:30)
== END 2020-07-23 17:45 | disposition home or self-care (01) ==
LOC: ER 09:35
DX: R11.2 Nausea with vomiting, unspecified (principal); N39.0 Urinary tract infection, site not specified; I11.9 Hypertensive heart disease without heart failure; E11.9 Type 2 diabetes mellitus without complications; Z87.19 Personal history of other diseases of the digestive system
CPT/HCPCS: 99284; 96361; 96374; 36415; 87086; 83690; 85025; 87070; 87088; 80053; 81001; 87186; 74022; J2405; J7030; S0028; J0696